=== PATIENT | male | born 1935 | race Two or more races ===

== ENCOUNTER 2018-05-08 11:19 | Inpatient (IN) | payer OTHER ==
--- NOTE | 2018-05-08 11:39 | PDOC ---
History of Present Illness - General Chief Complaint: Cold Symptoms Stated Complaint: FEVER Time Seen by Provider: 05/08/18 11:38 History Source: Patient (History provided by patient and mostly by his son present here, ) - History of Present Illness Timing/Duration: unsure Severity: moderate, severe Modifying Factors: improves with: rest Associated Symptoms: reports: cough, fever/chills, loss of appetite, malaise Past History - Travel Traveled outside of the country in the last 30 days: No Close contact w/someone who was outside of country & ill: No - Past Medical History Allergies/Adverse Reactions: Allergies Allergy/AdvReac Type Severity Reaction Status Date / Time No Known Allergies Allergy Verified 05/08/18 11:19 Home Medications: Ambulatory Orders Albuterol Sulfate Inhaler - [Ventolin Hfa Inhaler -] 1 inh PO Q6H 05/08/18 Albuterol Sulfate [Proair Respiclick] 90 mcg IH PRN PRN 05/08/18 Aspirin [ASA -] 81 mg PO DAILY 05/08/18 Brimonidine Tartrate [Alphagan 0.15% -] 1 drop OD TID 05/08/18 Dorzolamide HCl/Pf [Dorzolamide 2% Eye Drop] 10 ml OP TID 05/08/18 Mirabegron [Myrbetriq] 50 mg PO DAILY 05/08/18 Montelukast Na [Singulair -] 10 mg PO HS 05/08/18 Simvastatin [Zocor -] 20 mg PO HS 05/08/18 Anemia: No Asthma: Yes Cancer: Yes (prostate cancer, staging unknown) CVA: No COPD: Yes CHF: No Dementia: No Diabetes: No GI Disorders: No Disorders: Yes ([place] PROSTATE) HTN: Yes Hypercholesterolemia: Yes Liver Disease: No Seizures: No Thyroid Disease: No - Immunization History Td Vaccination: Yes TDAP Vaccination: Yes Immunization Up to Date: Yes - Suicide/Smoking/Psychosocial Hx Smoking Status: No Smoking History: Former smoker Have you smoked in the past 12 months: No Number of Cigarettes Smoked Daily: 0 If you are a former smoker, when did you quit?: 30 years ago Hx Alcohol Use: No Drug/Substance Use Hx: No Substance Use Type: None Hx Substance Use Treatment: No Review of Systems - Review of Systems Able to Perform ROS?: Yes Is the patient limited [place] proficient: Yes Constitutional: Yes: Symptoms Reported, Fever, Loss of Appetite, Malaise, Weakness *Physical Exam - Physical Exam General Appearance: Yes: Thin HEENT: positive: GEOVANNI (Bilateral catarcts), Nasal Congestion Neck: positive: Supple Respiratory/Chest: positive: Crackles, Rales Cardiovascular: positive: Regular Rate, Tachycardia Gastrointestinal/Abdominal: positive: Normal Bowel Sounds, Flat Extremity: positive: Normal Capillary Refill, Other (Muscular atrophy) Integumentary: positive: Pale Neurologic: positive: Alert ED Treatment Course - LABORATORY CBC & Chemistry Diagram: 05/10/18 07:40 05/10/18 07:40 - RADIOLOGY Radiology Studies Ordered: Category Date Time Status CHEST X-RAY PORTABLE* [RAD] Stat Radiology 05/08/18 11:25 Ordered *DC/Admit/Observation/Transfer Diagnosis at time of Disposition: COPD exacerbation, Difficulty breathing, Bronchitis - Discharge Dispostion Disposition: VNS/HOME HEALTH CARE Condition at time of disposition: Improved Decision to Admit order: Yes - Referrals - Patient Instructions - Post Discharge Activity
[2018-05-08] MEDS ORDERED: ACETAMINOPHEN 1000 MG/100 ML VIAL (NON FORMULARY) IVPB ONE (11:51)
[2018-05-08] MEDS ORDERED: ALBUTEROL SO4 2.5/IPRATROPIUM 0.5 INH SOL 3 ML VIAL.NEB. NEB ONE ×4 (11:51→13:16)
[2018-05-08] MEDS ORDERED: ACETAMINOPHEN INJECTION 100 ML IVPB ONE (11:52)
[2018-05-08 12:03] LABS: BASO % 0.3 % (0-2.0); EOS % 1.1 % (0-4.5); HEMATOCRIT 37.4 % (35.4-49); HEMOGLOBIN 12.1 GM/dl (11.7-16.9); LYMPH % 13.8 % (8-40); MCH 25.1 pg (25.7-33.7); MCHC 32.3 g/dl (32.0-35.9); MEAN PLT VOLUME 8.2 fl (7.5-11.1); MONO % 10.5 % (3.8-10.2); NEUT % 74.3 % (42.8-82.8); PLATELET COUNT 343 K/MM3 (134-434); RDW 15.3 % (11.9-15.9); WHITE BLOOD COUNT 12.1 K/mm3 (4.0-10.8)
[2018-05-08 12:16] LABS: ALBUMIN 3.6 g/dl (3.5-5.0); ALK PHOS 56 U/L (32-92); ANION GAP 6 MMOL/L (8-16); BILIRUBIN,TOTAL 0.8 mg/dl (0.2-1.0); BLOOD UREA NITROGEN 15 mg/dl (7-18); CHLORIDE 101 mmol/L (98-107); CO2 27 mmol/L (22-28); CREATININE 1.1 mg/dl (0.6-1.3); GLUCOSE,RANDOM 89 mg/dl (74-106); POTASSIUM 4.3 mmol/L (3.5-5.1); SGOT/AST 15 U/L (10-42); SGPT/ALT 11 U/L (10-40); SODIUM 134 mmol/L (136-145); TOT PROT 7.1 g/dl (6.4-8.3)
[2018-05-08] MEDS ORDERED: CEFTRIAXONE 1,000 MG in DEXTROSE 5%-WATER - 50 ML IVPB ONE (12:21)
[2018-05-08] MEDS ORDERED: AZITHROMYCIN IVPB 500 MG in DEXTROSE 5%-WATER - 250 ML IVPB ONE (12:22)
[2018-05-08] MEDS ORDERED: cefTRIAXone SODIUM 1 GM VIAL ONE (12:47)
[2018-05-08] MEDS ORDERED: AZITHROMYCIN 500 MG VIAL IVPB ONE (12:47)
[2018-05-08] MEDS ORDERED: ALBUTEROL SO4 0.083% IH SOL 2.5 MG/3 ML VIAL.NEB. NEB ONE ×2 (13:14→13:48)
[2018-05-08] MEDS ORDERED: methylPREDNISolone NA SUCC 125 MG/2 ML VIAL IVPB ONE (13:15)
[2018-05-08] MEDS ORDERED: methylPREDNISolone NA SUCC 125 MG/2 ML VIAL ONE (13:16)
[2018-05-08 14:15] LABS: URINE APPEARANCE Clear; URINE BILIRUBIN Negative (NEGATIVE); URINE COLOR Yellow; URINE GLUCOSE (UA) Negative (NEGATIVE); URINE KETONE Negative (NEGATIVE); URINE LEUK ESTERASE Negative (NEGATIVE); URINE NITRITE Negative (NEGATIVE); URINE PROTEIN Negative (NEGATIVE); URINE UROBILINOGEN 0.2 (0.2-1.0)
[2018-05-08 14:25] LABS: URINE RBC 0-2 /hpf (0-3)
[2018-05-08 16:48] VITALS: BMI 22.3
[2018-05-08] MEDS ORDERED: ALBUTEROL SO4 8 GM HFA INHALER IH PRN (18:43)
--- NOTE | 2018-05-08 18:44 | CON.ID ---
Consult Consult Specialty:: infectious diseases Reason for Consultation:: copd/r/o pna - History of Present Illness Chief Complaint: sob History of Present Illness: 83 y/o male coming to the hospital because of sob PMH of Prastatectomy 1994for carcinoma prostate, COPD,osteoporosis,Constipation,CAD,non st elevation [place], RIH repair came to ER with Cough,SOB,Wheezing was not improving with regular Rx Pt being admitted for COPD excerbation. 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: Other (Pt having unstedy gait,Flat feet) Cardio/Vascular: Yes: CAD (ekg criteria), HTN (H/O HTN), Hyperlipdemia (H/O hyperlipidemia) Pulmonary: Yes: Asthma (H/O of Asthma), COPD, Pneumonia (H/O of pneumonia) Gastrointestinal: Yes: Other (H/o of gastritis) Renal/: Yes: Other (H/O of CA prostate S/P prostatectomy) Musculoskeletal: Yes: Chronic low back pain (H/O of back pain), Osteoarthritis ( H/o of OA) Rheumatology: Yes: Other (H/O of OA) Endocrine: Yes: Other (H/O of osteo porosis) - Past Surgical History Past Surgical History: Yes: Prostatectomy (H/O of prostatectomy) - Alcohol/Substance Use Hx Alcohol Use: No - Smoking History Smoking history: Former smoker Have you smoked in the past 12 months: No Aproximately how many cigarettes per day: 0 If you are a former smoker, when did you quit?: 30 years ago - Social History ADL: Independent History of Recent Travel: Yes (Amanda) Home Medications - Allergies Allergies/Adverse Reactions: Allergies Allergy/AdvReac Type Severity Reaction Status Date / Time No Known Allergies Allergy Verified 05/08/18 11:19 - Home Medications Home Medications: Ambulatory Orders Albuterol Sulfate Inhaler - [Ventolin Hfa Inhaler -] 1 inh PO Q6H 05/08/18 Albuterol Sulfate [Proair Respiclick] 90 mcg IH PRN PRN 05/08/18 Aspirin [ASA -] 81 mg PO DAILY 05/08/18 Brimonidine Tartrate [Alphagan 0.15% -] 1 drop OD TID 05/08/18 Dorzolamide HCl/Pf [Dorzolamide 2% Eye Drop] 10 ml OP TID 05/08/18 Mirabegron [Myrbetriq] 50 mg PO DAILY 05/08/18 Montelukast Na [Singulair -] 10 mg PO HS 05/08/18 Simvastatin [Zocor -] 20 mg PO HS 05/08/18 Review of Systems - Review of Systems Constitutional: reports: No Symptoms Eyes: reports: No Symptoms HENT: reports: No Symptoms Neck: reports: No Symptoms Cardiovascular: reports: No Symptoms Respiratory: reports: SOB, SOB on Exertion Gastrointestinal: reports: No Symptoms Genitourinary: reports: No Symptoms Breasts: reports: No Symptoms Reported Musculoskeletal: reports: No Symptoms Integumentary: reports: No Symptoms Neurological: reports: No Symptoms Endocrine: reports: No Symptoms Hematology/Lymphatic: reports: No Symptoms Psychiatric: reports: No Symptoms Physical Exam Vital Signs: Vital Signs Temperature 98.2 F 05/08/18 16:37 Pulse Rate 87 05/08/18 16:37 Respiratory Rate 20 05/08/18 16:37 Blood Pressure 108/67 05/08/18 16:37 O2 Sat by Pulse Oximetry (%) 97 05/08/18 16:37 Constitutional: Yes: Calm, Mild Distress, Thin Eyes: Yes: Conjunctiva Clear Neck: Yes: Supple, Trachea Midline Cardiovascular: Yes: S1, S2 Respiratory: Yes: On Nasal O2, Poor Air Entry, Rhonchi Gastrointestinal: Yes: Normal Bowel Sounds, Soft Musculoskeletal: Yes: WNL Extremities: Yes: WNL Neurological: Yes: Alert, Oriented Psychiatric: Yes: Alert, Oriented Labs: CBC, BMP 05/08/18 11:44 05/08/18 11:44 Assessment/Plan Problem List - Problems (1) Acute exacerbation of chronic obstructive pulmonary disease (COPD) Code(s): J44.1 - CHRONIC OBSTRUCTIVE PULMONARY DISEASE W (ACUTE) EXACERBATION (2) Prostate ca Code(s): C61 - MALIGNANT NEOPLASM OF PROSTATE 3 leukocytosis plan continue current mgmt neb treatment will start patient on ceftriaxone await for all cx reports rest as per the team resp support
[2018-05-08] MEDS: ALBUTEROL SO4 2.5/IPRATROPIUM 0.5 INH SOL 3 ML VIAL.NEB. NEB SCH ×2 (21:00→23:14)
--- NOTE | 2018-05-08 21:51 | HP ---
Admitting History and Physical - Primary Care Physician PCP: Dr viri Winslow - Admission History of Present Illness: 83 Y old male with PMH of Prastatectomy 1994for carcinoma prostate, COPD, osteoporosis,Constipation,CAD,No ST elevation [place],RIH repair came to ER with Cough,SOB,Wheezing was not improving with regular Rx Pt being admitted for COPD excerbation. 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: Other (Pt having unstedy gait,Flat feet) Cardiovascular: Yes: CAD (ekg criteria), HTN (H/O HTN), Hyperlipdemia (H/O hyperlipidemia), [place] Pulmonary: Yes: Asthma (H/O of Asthma), COPD, Pneumonia (H/O of pneumonia) Gastrointestinal: Yes: Constipation, Other (H/o of gastritis) Renal/: Yes: Other (H/O of CA prostate S/P prostatectomy) Psych: Yes: Anxiety Musculoskeletal: Yes: Chronic low back pain (H/O of back pain), Osteoarthritis ( H/o of OA) Rheumatology: Yes: Other (H/O of OA) Endocrine: Yes: Other (H/O of osteo porosis) - Past Surgical History Past Surgical History: Yes: Prostatectomy (H/O of prostatectomy) - Smoking History Smoking history: Former smoker Have you smoked in the past 12 months: No Aproximately how many cigarettes per day: 0 If you are a former smoker, when did you quit?: 30 years ago - Alcohol/Substance Use Hx Alcohol Use: No - Social History ADL: Independent History of Recent Travel: Yes (Amanda) Home Medications - Allergies Allergies/Adverse Reactions: Allergies Allergy/AdvReac Type Severity Reaction Status Date / Time No Known Allergies Allergy Verified 05/08/18 11:19 - Home Medications Home Medications: Ambulatory Orders Albuterol Sulfate Inhaler - [Ventolin Hfa Inhaler -] 1 inh PO Q6H 05/08/18 Albuterol Sulfate [Proair Respiclick] 90 mcg IH PRN PRN 05/08/18 Aspirin [ASA -] 81 mg PO DAILY 05/08/18 Brimonidine Tartrate [Alphagan 0.15% -] 1 drop OD TID 05/08/18 Dorzolamide HCl/Pf [Dorzolamide 2% Eye Drop] 10 ml OP TID 05/08/18 Mirabegron [Myrbetriq] 50 mg PO DAILY 05/08/18 Montelukast Na [Singulair -] 10 mg PO HS 05/08/18 Simvastatin [Zocor -] 20 mg PO HS 05/08/18 Physical Examination Vital Signs: Vital Signs Temperature 98.2 F 05/08/18 16:37 Pulse Rate 87 05/08/18 16:37 Respiratory Rate 20 05/08/18 16:37 Blood Pressure 108/67 05/08/18 16:37 O2 Sat by Pulse Oximetry (%) 97 05/08/18 16:37 Labs: CBC, BMP 05/08/18 11:44 05/08/18 11:44 Problem List - Problems (1) Acute exacerbation of chronic obstructive pulmonary disease (COPD) Code(s): J44.1 - CHRONIC OBSTRUCTIVE PULMONARY DISEASE W (ACUTE) EXACERBATION (2) Bronchitis Code(s): J40 - BRONCHITIS, NOT SPECIFIED ACUTE OR CHRONIC (3) Gait difficulty Code(s): R26.9 - UNSPECIFIED ABNORMALITIES OF GAIT AND MOBILITY (4) Myocardial infarct Code(s): I21.9 - ACUTE MYOCARDIAL INFARCTION, UNSPECIFIED Qualifiers: Myocardial infarction type: non-ST elevation myocardial infarction Qualified Code(s): I21.4 - Non-ST elevation (NSTEMI) myocardial infarction (5) CAD (coronary artery disease) Code(s): I25.10 - ATHSCL HEART DISEASE OF [place] CORONARY ARTERY W/O ANG PCTRS Qualifiers: Coronary Disease-Associated Artery/Lesion type: [place] artery (6) Anemia Code(s): D64.9 - ANEMIA, UNSPECIFIED (7) Prostate ca Code(s): C61 - MALIGNANT NEOPLASM OF PROSTATE (8) Sepsis Code(s): A41.9 - SEPSIS, UNSPECIFIED ORGANISM (9) Hyponatremia Code(s): E87.1 - HYPO-OSMOLALITY AND HYPONATREMIA Assessment/Plan (1) Acute exacerbation of chronic obstructive pulmonary disease (COPD) Code(s): J44.1 - CHRONIC OBSTRUCTIVE PULMONARY DISEASE W (ACUTE) EXACERBATION (2) Bronchitis Code(s): J40 - BRONCHITIS, NOT SPECIFIED ACUTE OR CHRONIC (3) Gait difficulty Code(s): R26.9 - UNSPECIFIED ABNORMALITIES OF GAIT AND MOBILITY (4) Myocardial infarct Code(s): I21.9 - ACUTE MYOCARDIAL INFARCTION, UNSPECIFIED Qualifiers: Myocardial infarction type: non-ST elevation myocardial infarction Qualified Code(s): I21.4 - Non-ST elevation (NSTEMI) myocardial infarction (5) CAD (coronary artery disease) Code(s): I25.10 - ATHSCL HEART DISEASE OF [place] CORONARY ARTERY W/O ANG PCTRS Qualifiers: Coronary Disease-Associated Artery/Lesion type: [place] artery
[2018-05-08] MEDS ORDERED: FUROSEMIDE 20 MG TABLET (FP) PO ONE (22:18)
[2018-05-08] MEDS: POTASSIUM CHLORIDE 10 MEQ in SODIUM CHLORIDE 0.45% 1,000 ML IVPB SCH (23:14)
[2018-05-09] MEDS: methylPREDNISolone NA SUCC 40 MG/1 ML VIAL IVPUSH SCH ×4 (02:00→19:00)
[2018-05-09] MEDS: ALBUTEROL SO4 2.5/IPRATROPIUM 0.5 INH SOL 3 ML VIAL.NEB. NEB SCH ×6 (02:21→23:53)
[2018-05-09 08:22] LABS: HEMATOCRIT 36.8 % (35.4-49); MCH 25.3 pg (25.7-33.7); MCHC 32.5 g/dl (32.0-35.9); MEAN CELL VOLUME 77.7 fl (80-96); MEAN PLT VOLUME 9.1 fl (7.5-11.1); PLATELET COUNT 321 K/MM3 (134-434); RBC 4.74 M/mm3 (4.00-5.60); RDW 15.3 % (11.9-15.9); WHITE BLOOD COUNT 14.5 K/mm3 (4.0-10.8)
[2018-05-09 08:30] LABS: ANION GAP 8 MMOL/L (8-16); BLOOD UREA NITROGEN 19 mg/dl (7-18); CALCIUM 8.9 mg/dl (8.4-10.2); CHLORIDE 105 mmol/L (98-107); CO2 23 mmol/L (22-28); GLUCOSE,RANDOM 166 mg/dl (74-106); POTASSIUM 3.7 mmol/L (3.5-5.1); SODIUM 136 mmol/L (136-145)
[2018-05-09 08:52] LABS: PLATELET ESTIMATE ADEQUATE
--- NOTE | 2018-05-09 09:54 | PN ---
Progress Note, Physician History of Present Illness: stable doing well breathing better - Current Medication List Current Medications: Active Medications Albuterol Sulfate (Ventolin Hfa Inhaler -) 2 puff IH Q4H PRN PRN Reason: SHORT OF BREATH/WHEEZING Albuterol/Ipratropium (Duoneb -) 1 amp NEB Q4H [facility] Last Admin: 05/09/18 08:24 Dose: 1 amp Aspirin (Ecotrin -) 81 mg PO DAILY [facility] Azithromycin (Zithromax 500mg Ivpb (Pre-Docked)) 500 mg in 250 mls @ 250 mls/ hr IVPB DAILY [facility] Potassium Chloride 10 meq/ (Sodium Chloride) 1,005 mls @ 75 mls/hr IVPB Q13H [facility] Last Admin: 05/08/18 23:14 Dose: 75 mls/hr Ceftriaxone Sodium (Rocephin 1gm Ivpb (Pre-Docked)) 1 gm in 50 mls @ 100 mls/ hr IVPB DAILY [facility]; Protocol Methylprednisolone Sodium Succinate (Solu-Medrol -) 40 mg IVPUSH Q8H-IV [facility] Last Admin: 05/09/18 02:00 Dose: 40 mg Montelukast Sodium (Singulair -) 10 mg PO HS [facility] Pantoprazole Sodium (Protonix Iv) 40 mg IVPUSH DAILY [facility] - Objective Vital Signs: Vital Signs Temperature 97.8 F 05/09/18 06:34 Pulse Rate 107 H 05/09/18 06:34 Respiratory Rate 18 05/09/18 08:37 Blood Pressure 114/54 L 05/09/18 06:34 O2 Sat by Pulse Oximetry (%) 96 05/09/18 08:37 Constitutional: Yes: No Distress, Calm Cardiovascular: Yes: Regular Rate and Rhythm Respiratory: Yes: Regular, On Nasal O2, Poor Air Entry Gastrointestinal: Yes: Normal Bowel Sounds, Soft Musculoskeletal: Yes: WNL Extremities: Yes: WNL Neurological: Yes: Alert, Oriented Psychiatric: Yes: Alert, Oriented Labs: CBC, BMP 05/09/18 08:00 05/09/18 08:00 - ....Imaging Chest X-ray: Report Reviewed, Image Reviewed Assessment/Plan Problem List - Problems (1) Acute exacerbation of chronic obstructive pulmonary disease (COPD) Code(s): J44.1 - CHRONIC OBSTRUCTIVE PULMONARY DISEASE W (ACUTE) EXACERBATION (2) Prostate ca Code(s): C61 - MALIGNANT NEOPLASM OF PROSTATE 3 leukocytosis plan continue current mgmt neb treatment ceftriaxone await for all cx reports rest as per the team resp support physio
[2018-05-09] MEDS ORDERED: CEFTRIAXONE 1 GM in DEXTROSE 5%-WATER - 100 ML IVPB SCH (10:00)
[2018-05-09] MEDS: PANTOPRAZOLE SODIUM 40 MG VIAL IVPUSH SCH ×2 (10:09→19:00)
[2018-05-09] MEDS: CEFTRIAXONE 1 GM/50 ML BAG IVPB SCH (10:09)
[2018-05-09] MEDS: ASPIRIN COATED 81 MG TABLET.EC PO SCH (10:10)
[2018-05-09] MEDS: AZITHROMYCIN IVPB 500 MG/250 ML BAG IVPB SCH (10:10)
--- NOTE | 2018-05-09 10:23 | EKG ---
Test Reason : Blood Pressure : / mmHG Vent. Rate : 103 BPM Atrial Rate : 103 BPM P-R Int : 154 ms QRS Dur : 074 ms QT Int : 310 ms P-R-T Axes : 075 030 081 degrees QTc Int : 406 ms SINUS TACHYCARDIA LOW VOLTAGE QRS NONSPECIFIC T WAVE ABNORMALITY ABNORMAL ECG Confirmed by ANISH PUTNAM MD ([id number]) on 05/09/2018 10:22:34 AM Referred By: TIARA THOMPSON Confirmed By:ANISH PUTNAM MD
[2018-05-09] MEDS: POTASSIUM CHLORIDE 10 MEQ in SODIUM CHLORIDE 0.45% 1,000 ML IVPB SCH (12:23)
--- NOTE | 2018-05-09 20:36 | PN ---
Progress Note, Physician History of Present Illness: Pt SOB better Fever subsided No Chest pain Decreased wheezing - Current Medication List Current Medications: Active Medications Albuterol Sulfate (Ventolin Hfa Inhaler -) 2 puff IH Q4H PRN PRN Reason: SHORT OF BREATH/WHEEZING Albuterol/Ipratropium (Duoneb -) 1 amp NEB Q4H [facility] Last Admin: 05/09/18 16:00 Dose: 1 amp Aspirin (Ecotrin -) 81 mg PO DAILY [facility] Last Admin: 05/09/18 10:10 Dose: 81 mg Azithromycin (Zithromax 500mg Ivpb (Pre-Docked)) 500 mg in 250 mls @ 250 mls/ hr IVPB DAILY [facility] Last Admin: 05/09/18 10:10 Dose: 250 mls/hr Potassium Chloride 10 meq/ (Sodium Chloride) 1,005 mls @ 75 mls/hr IVPB Q13H [facility] Last Admin: 05/09/18 12:23 Dose: 75 mls/hr Ceftriaxone Sodium (Rocephin 1gm Ivpb (Pre-Docked)) 1 gm in 50 mls @ 100 mls/ hr IVPB DAILY [facility]; Protocol Last Admin: 05/09/18 10:09 Dose: 100 mls/hr Methylprednisolone Sodium Succinate (Solu-Medrol -) 40 mg IVPUSH Q8H-IV [facility] Last Admin: 05/09/18 19:00 Dose: Not Given Montelukast Sodium (Singulair -) 10 mg PO HS [facility] Pantoprazole Sodium (Protonix Iv) 40 mg IVPUSH DAILY [facility] Last Admin: 05/09/18 19:00 Dose: Not Given - Objective Vital Signs: Vital Signs Temperature 97.5 F L 05/09/18 18:00 Pulse Rate 103 H 05/09/18 18:00 Respiratory Rate 19 18 19:23 Blood Pressure 105/47 L 05/09/18 18:00 O2 Sat by Pulse Oximetry (%) 97 05/09/18 19:23 Constitutional: Yes: No Distress Eyes: Yes: Conjunctiva Clear, EOM Intact HENT: Yes: Atraumatic, Normocephalic Neck: Yes: Supple, Trachea Midline Cardiovascular: Yes: Regular Rate and Rhythm, S1, S2 Respiratory: Yes: Regular, CTA Bilaterally Gastrointestinal: Yes: Normal Bowel Sounds, Soft Edema: No Neurological: Yes: Alert, Oriented, Cran Nerves II-XII Intact Labs: CBC, BMP 05/09/18 08:00 05/09/18 08:00 Problem List - Problems (1) Acute exacerbation of chronic obstructive pulmonary disease (COPD) Code(s): J44.1 - CHRONIC OBSTRUCTIVE PULMONARY DISEASE W (ACUTE) EXACERBATION (2) Bronchitis Code(s): J40 - BRONCHITIS, NOT SPECIFIED ACUTE OR CHRONIC (3) Gait difficulty Code(s): R26.9 - UNSPECIFIED ABNORMALITIES OF GAIT AND MOBILITY (4) Myocardial infarct Code(s): I21.9 - ACUTE MYOCARDIAL INFARCTION, UNSPECIFIED Qualifiers: Myocardial infarction type: non-ST elevation myocardial infarction Qualified Code(s): I21.4 - Non-ST elevation (NSTEMI) myocardial infarction (5) CAD (coronary artery disease) Code(s): I25.10 - ATHSCL HEART DISEASE OF [place] CORONARY ARTERY W/O ANG PCTRS Qualifiers: Coronary Disease-Associated Artery/Lesion type: [place] artery (6) Anemia Code(s): D64.9 - ANEMIA, UNSPECIFIED (7) Prostate ca Code(s): C61 - MALIGNANT NEOPLASM OF PROSTATE (8) Sepsis Code(s): A41.9 - SEPSIS, UNSPECIFIED ORGANISM (9) Hyponatremia Code(s): E87.1 - HYPO-OSMOLALITY AND HYPONATREMIA Assessment/Plan (1) Acute exacerbation of chronic obstructive pulmonary disease (COPD) Code(s): J44.1 - CHRONIC OBSTRUCTIVE PULMONARY DISEASE W (ACUTE) EXACERBATION (2) Bronchitis Code(s): J40 - BRONCHITIS, NOT SPECIFIED ACUTE OR CHRONIC (3) Gait difficulty Code(s): R26.9 - UNSPECIFIED ABNORMALITIES OF GAIT AND MOBILITY (4) Myocardial infarct Code(s): I21.9 - ACUTE MYOCARDIAL INFARCTION, UNSPECIFIED Qualifiers: Myocardial infarction type: non-ST elevation myocardial infarction Qualified Code(s): I21.4 - Non-ST elevation (NSTEMI) myocardial infarction (5) CAD (coronary artery disease) Code(s): I25.10 - ATHSCL HEART DISEASE OF [place] CORONARY ARTERY W/O ANG PCTRS Qualifiers: Coronary Disease-Associated Artery/Lesion type: [place] artery Pt is much better Less wheezing No fever PT we will Fu closely
[2018-05-09] MEDS: MONTELUKAST NA 10 MG TABLET PO SCH (21:11)
[2018-05-10] MEDS: POTASSIUM CHLORIDE 10 MEQ in SODIUM CHLORIDE 0.45% 1,000 ML IVPB SCH (00:30)
[2018-05-10] MEDS: methylPREDNISolone NA SUCC 40 MG/1 ML VIAL IVPUSH SCH ×3 (01:17→17:30)
[2018-05-10] MEDS: ALBUTEROL SO4 2.5/IPRATROPIUM 0.5 INH SOL 3 ML VIAL.NEB. NEB SCH ×5 (05:28→20:17)
[2018-05-10] MEDS: DEXTROMETHORPHAN/PROMETHAZINE 15 MG/6.25 MG/5 ML SYRUP PO PRN ×2 (05:28→20:18)
[2018-05-10] MEDS: CEFTRIAXONE 1 GM/50 ML BAG IVPB SCH (09:00)
[2018-05-10 09:12] LABS: ANION GAP 6 MMOL/L (8-16); BLOOD UREA NITROGEN 26 mg/dl (7-18); CALCIUM 8.4 mg/dl (8.4-10.2); CHLORIDE 107 mmol/L (98-107); CO2 24 mmol/L (22-28); CREATININE 0.9 mg/dl (0.6-1.3); GLUCOSE,RANDOM 152 mg/dl (74-106); POTASSIUM 4.2 mmol/L (3.5-5.1); SODIUM 137 mmol/L (136-145)
[2018-05-10 09:18] LABS: BASO % 0.1 % (0-2.0); EOS % 0.1 % (0-4.5); HEMOGLOBIN 11.2 GM/dl (11.7-16.9); LYMPH % 6.5 % (8-40); MCH 25.6 pg (25.7-33.7); MCHC 32.8 g/dl (32.0-35.9); MEAN CELL VOLUME 77.8 fl (80-96); MONO % 2.4 % (3.8-10.2); NEUT % 90.9 % (42.8-82.8); PLATELET COUNT 311 K/MM3 (134-434); RBC 4.37 M/mm3 (4.00-5.60); RDW 15.5 % (11.9-15.9); WHITE BLOOD COUNT 16.4 K/mm3 (4.0-10.8)
[2018-05-10] MEDS: AZITHROMYCIN IVPB 500 MG/250 ML BAG IVPB SCH (09:42)
[2018-05-10] MEDS: PANTOPRAZOLE SODIUM 40 MG VIAL IVPUSH SCH (09:55)
[2018-05-10] MEDS: ASPIRIN COATED 81 MG TABLET.EC PO SCH (10:18)
--- NOTE | 2018-05-10 11:39 | PN ---
Progress Note, Physician History of Present Illness: Pt states he feels better. Afebrile, without distress. No new complaints. - Current Medication List Current Medications: Active Medications Albuterol Sulfate (Ventolin Hfa Inhaler -) 2 puff IH Q4H PRN PRN Reason: SHORT OF BREATH/WHEEZING Albuterol/Ipratropium (Duoneb -) 1 amp NEB Q4H [facility] Last Admin: 05/10/18 05:28 Dose: 1 amp Aspirin (Ecotrin -) 81 mg PO DAILY [facility] Last Admin: 05/09/18 10:10 Dose: 81 mg Benzocaine/Menthol (Cepacol Lozenge -) 1 each MM PRN PRN PRN Reason: SORE THROAT Azithromycin (Zithromax 500mg Ivpb (Pre-Docked)) 500 mg in 250 mls @ 250 mls/ hr IVPB DAILY [facility] Last Admin: 05/09/18 10:10 Dose: 250 mls/hr Potassium Chloride 10 meq/ (Sodium Chloride) 1,005 mls @ 75 mls/hr IVPB Q13H [facility] Last Admin: 05/10/18 00:30 Dose: 75 mls/hr Ceftriaxone Sodium (Rocephin 1gm Ivpb (Pre-Docked)) 1 gm in 50 mls @ 100 mls/ hr IVPB DAILY [facility]; Protocol Last Admin: 05/09/18 10:09 Dose: 100 mls/hr Methylprednisolone Sodium Succinate (Solu-Medrol -) 40 mg IVPUSH Q8H-IV [facility] Last Admin: 05/10/18 01:17 Dose: 40 mg Montelukast Sodium (Singulair -) 10 mg PO HS [facility] Last Admin: 05/09/18 21:11 Dose: 10 mg Pantoprazole Sodium (Protonix Iv) 40 mg IVPUSH DAILY [facility] Last Admin: 05/09/18 19:00 Dose: Not Given Promethazine HCl/Dextromethorphan (Phenergan-Dm Syrup -) 5 ml PO Q6H PRN PRN Reason: COUGH Stop: 05/13/18 06:00 Last Admin: 05/10/18 05:28 Dose: 5 ml - Objective Vital Signs: Vital Signs Temperature 97.8 F 05/10/18 10:24 Pulse Rate 79 05/10/18 10:24 Respiratory Rate 19 05/10/18 10:24 Blood Pressure 110/47 L 05/10/18 10:24 O2 Sat by Pulse Oximetry (%) 95 05/10/18 10:24 Constitutional: Yes: No Distress, Calm Cardiovascular: Yes: Regular Rate and Rhythm Respiratory: Yes: Diminished Gastrointestinal: Yes: Normal Bowel Sounds, Soft Integumentary: Yes: WNL Neurological: Yes: Alert Labs: CBC, BMP 05/10/18 07:40 05/10/18 07:40 Microbiology 05/08/18 14:06 Urine - Urine Clean Catch Urine Culture - Final Contaminated: Please Repeat 05/08/18 11:49 Blood - Peripheral Venous Blood Culture - Preliminary NO GROWTH OBTAINED AFTER 24 HOURS, INCUBATION TO CONTINUE FOR 4 DAYS. 05/08/18 11:28 Blood - Peripheral Venous Blood Culture - Preliminary NO GROWTH OBTAINED AFTER 24 HOURS, INCUBATION TO CONTINUE FOR 4 DAYS. 05/08/18 13:52 Nasopharyngeal Swab Influenza Types A,B Antigen - Final 05/08/18 13:52 Nasopharyngeal Swab - Final Problem List - Problems (1) COPD exacerbation Code(s): J44.1 - CHRONIC OBSTRUCTIVE PULMONARY DISEASE W (ACUTE) EXACERBATION (2) CAD (coronary artery disease) Code(s): I25.10 - ATHSCL HEART DISEASE OF [place] CORONARY ARTERY W/O ANG PCTRS Qualifiers: Coronary Disease-Associated Artery/Lesion type: [place] artery (3) Prostate ca Code(s): C61 - MALIGNANT NEOPLASM OF PROSTATE Assessment/Plan wbc elevation - on steroids -- no respiratory distress -- blood cultures no growth 24h -- cont. current antibiotics -- breathing comfortably at this time, afebrile
--- NOTE | 2018-05-10 14:10 | PN ---
Progress Note, Physician History of Present Illness: Pt is doing well No fever No SOB - Current Medication List Current Medications: Active Medications Albuterol Sulfate (Ventolin Hfa Inhaler -) 2 puff IH Q4H PRN PRN Reason: SHORT OF BREATH/WHEEZING Albuterol/Ipratropium (Duoneb -) 1 amp NEB Q4H [facility] Last Admin: 05/10/18 05:28 Dose: 1 amp Aspirin (Ecotrin -) 81 mg PO DAILY [facility] Last Admin: 05/09/18 10:10 Dose: 81 mg Benzocaine/Menthol (Cepacol Lozenge -) 1 each MM PRN PRN PRN Reason: SORE THROAT Azithromycin (Zithromax 500mg Ivpb (Pre-Docked)) 500 mg in 250 mls @ 250 mls/ hr IVPB DAILY [facility] Last Admin: 05/09/18 10:10 Dose: 250 mls/hr Potassium Chloride 10 meq/ (Sodium Chloride) 1,005 mls @ 75 mls/hr IVPB Q13H [facility] Last Admin: 05/10/18 00:30 Dose: 75 mls/hr Ceftriaxone Sodium (Rocephin 1gm Ivpb (Pre-Docked)) 1 gm in 50 mls @ 100 mls/ hr IVPB DAILY [facility]; Protocol Last Admin: 05/09/18 10:09 Dose: 100 mls/hr Methylprednisolone Sodium Succinate (Solu-Medrol -) 40 mg IVPUSH Q8H-IV [facility] Last Admin: 05/10/18 01:17 Dose: 40 mg Montelukast Sodium (Singulair -) 10 mg PO HS [facility] Last Admin: 05/09/18 21:11 Dose: 10 mg Pantoprazole Sodium (Protonix Iv) 40 mg IVPUSH DAILY [facility] Last Admin: 05/09/18 19:00 Dose: Not Given Promethazine HCl/Dextromethorphan (Phenergan-Dm Syrup -) 5 ml PO Q6H PRN PRN Reason: COUGH Stop: 05/13/18 06:00 Last Admin: 05/10/18 05:28 Dose: 5 ml - Objective Vital Signs: Vital Signs Temperature 97.8 F 05/10/18 10:24 Pulse Rate 79 05/10/18 10:24 Respiratory Rate 19 05/10/18 10:24 Blood Pressure 110/47 L 05/10/18 10:24 O2 Sat by Pulse Oximetry (%) 95 05/10/18 10:24 Constitutional: Yes: No Distress Eyes: Yes: Conjunctiva Clear, EOM Intact HENT: Yes: Atraumatic, Normocephalic Neck: Yes: Supple, Trachea Midline Cardiovascular: Yes: Regular Rate and Rhythm, S1, S2 Respiratory: Yes: Regular, CTA Bilaterally Gastrointestinal: Yes: Normal Bowel Sounds, Soft Edema: No Labs: CBC, BMP 05/10/18 07:40 05/10/18 07:40 Problem List - Problems (1) Acute exacerbation of chronic obstructive pulmonary disease (COPD) Code(s): J44.1 - CHRONIC OBSTRUCTIVE PULMONARY DISEASE W (ACUTE) EXACERBATION (2) Bronchitis Code(s): J40 - BRONCHITIS, NOT SPECIFIED ACUTE OR CHRONIC (3) Gait difficulty Code(s): R26.9 - UNSPECIFIED ABNORMALITIES OF GAIT AND MOBILITY (4) Myocardial infarct Code(s): I21.9 - ACUTE MYOCARDIAL INFARCTION, UNSPECIFIED Qualifiers: Myocardial infarction type: non-ST elevation myocardial infarction Qualified Code(s): I21.4 - Non-ST elevation (NSTEMI) myocardial infarction (5) CAD (coronary artery disease) Code(s): I25.10 - ATHSCL HEART DISEASE OF [place] CORONARY ARTERY W/O ANG PCTRS Qualifiers: Coronary Disease-Associated Artery/Lesion type: [place] artery (6) Anemia Code(s): D64.9 - ANEMIA, UNSPECIFIED (7) Prostate ca Code(s): C61 - MALIGNANT NEOPLASM OF PROSTATE (8) Sepsis Code(s): A41.9 - SEPSIS, UNSPECIFIED ORGANISM (9) Hyponatremia Code(s): E87.1 - HYPO-OSMOLALITY AND HYPONATREMIA Assessment/Plan (1) Acute exacerbation of chronic obstructive pulmonary disease (COPD) Code(s): J44.1 - CHRONIC OBSTRUCTIVE PULMONARY DISEASE W (ACUTE) EXACERBATION (2) Bronchitis Code(s): J40 - BRONCHITIS, NOT SPECIFIED ACUTE OR CHRONIC (3) Gait difficulty Code(s): R26.9 - UNSPECIFIED ABNORMALITIES OF GAIT AND MOBILITY (4) Myocardial infarct Code(s): I21.9 - ACUTE MYOCARDIAL INFARCTION, UNSPECIFIED Qualifiers: Myocardial infarction type: non-ST elevation myocardial infarction Qualified Code(s): I21.4 - Non-ST elevation (NSTEMI) myocardial infarction (5) CAD (coronary artery disease) Code(s): I25.10 - ATHSCL HEART DISEASE OF [place] CORONARY ARTERY W/O ANG PCTRS Qualifiers: Coronary Disease-Associated Artery/Lesion type: [place] artery Pt is hemodynamically stable No Fever NO SOB No chest pain
[2018-05-10] MEDS: MONTELUKAST NA 10 MG TABLET PO SCH (21:34)
[2018-05-11] MEDS: methylPREDNISolone NA SUCC 40 MG/1 ML VIAL IVPUSH SCH ×3 (01:03→13:10)
[2018-05-11] MEDS: ALBUTEROL SO4 2.5/IPRATROPIUM 0.5 INH SOL 3 ML VIAL.NEB. NEB SCH ×6 (01:03→20:10)
[2018-05-11] MEDS: CEFTRIAXONE 1 GM/50 ML BAG IVPB SCH (09:00)
[2018-05-11] MEDS: PANTOPRAZOLE SODIUM 40 MG VIAL IVPUSH SCH (09:35)
[2018-05-11] MEDS: AZITHROMYCIN IVPB 500 MG/250 ML BAG IVPB SCH (10:20)
[2018-05-11] MEDS: ASPIRIN COATED 81 MG TABLET.EC PO SCH (10:50)
--- NOTE | 2018-05-11 11:48 | PN ---
Progress Note, Physician History of Present Illness: Pt is alert. Denies shortness of breath, comfortably breathing on room air. Remains afebrile. Denies having any specific complaints. - Current Medication List Current Medications: Active Medications Albuterol Sulfate (Ventolin Hfa Inhaler -) 2 puff IH Q4H PRN PRN Reason: SHORT OF BREATH/WHEEZING Albuterol/Ipratropium (Duoneb -) 1 amp NEB Q4H [facility] Last Admin: 05/11/18 07:51 Dose: 1 amp Aspirin (Ecotrin -) 81 mg PO DAILY [facility] Last Admin: 05/11/18 10:50 Dose: 81 mg Benzocaine/Menthol (Cepacol Lozenge -) 1 each MM PRN PRN PRN Reason: SORE THROAT Azithromycin (Zithromax 500mg Ivpb (Pre-Docked)) 500 mg in 250 mls @ 250 mls/ hr IVPB DAILY [facility] Last Admin: 05/11/18 10:20 Dose: 250 mls/hr Ceftriaxone Sodium (Rocephin 1gm Ivpb (Pre-Docked)) 1 gm in 50 mls @ 100 mls/ hr IVPB DAILY [facility]; Protocol Last Admin: 05/11/18 09:00 Dose: 100 mls/hr Methylprednisolone Sodium Succinate (Solu-Medrol -) 40 mg IVPUSH Q8H-IV [facility] Last Admin: 05/11/18 09:55 Dose: 40 mg Montelukast Sodium (Singulair -) 10 mg PO HS [facility] Last Admin: 05/10/18 21:34 Dose: 10 mg Pantoprazole Sodium (Protonix Iv) 40 mg IVPUSH DAILY [facility] Last Admin: 05/11/18 09:35 Dose: 40 mg Promethazine HCl/Dextromethorphan (Phenergan-Dm Syrup -) 5 ml PO Q6H PRN PRN Reason: COUGH Stop: 05/13/18 06:00 Last Admin: 05/10/18 20:18 Dose: 5 ml - Objective Vital Signs: Vital Signs Temperature 97.8 F 05/11/18 06:00 Pulse Rate 83 05/11/18 06:00 Respiratory Rate 20 05/11/18 09:00 Blood Pressure 122/61 05/11/18 06:00 O2 Sat by Pulse Oximetry (%) 95 05/11/18 09:00 Constitutional: Yes: No Distress, Calm Neck: Yes: Supple Cardiovascular: Yes: Regular Rate and Rhythm Respiratory: Yes: Diminished (slightly diminished b/l, no rhonchi) Gastrointestinal: Yes: Normal Bowel Sounds, Soft Genitourinary: Yes: WNL Extremities: Yes: WNL Integumentary: Yes: WNL Neurological: Yes: Alert, Oriented Labs: CBC, BMP 05/10/18 07:40 05/10/18 07:40 Problem List - Problems (1) COPD exacerbation Code(s): J44.1 - CHRONIC OBSTRUCTIVE PULMONARY DISEASE W (ACUTE) EXACERBATION (2) CAD (coronary artery disease) Code(s): I25.10 - ATHSCL HEART DISEASE OF [place] CORONARY ARTERY W/O ANG PCTRS Qualifiers: Coronary Disease-Associated Artery/Lesion type: [place] artery (3) Prostate ca Code(s): C61 - MALIGNANT NEOPLASM OF PROSTATE Assessment/Plan wbc increasing trend, suspect due to steroids -- no respiratory distress -- blood cultures no growth thus far -- cont. current antibiotics, plan switch to cefpodoxime po tomorrow to continue for a few more days -- breathing comfortably on RA continue monitor vitals
--- NOTE | 2018-05-11 12:20 | PN ---
Progress Note, Physician - Current Medication List Current Medications: Active Medications Albuterol Sulfate (Ventolin Hfa Inhaler -) 2 puff IH Q4H PRN PRN Reason: SHORT OF BREATH/WHEEZING Albuterol/Ipratropium (Duoneb -) 1 amp NEB Q4H [facility] Last Admin: 05/11/18 07:51 Dose: 1 amp Aspirin (Ecotrin -) 81 mg PO DAILY [facility] Last Admin: 05/11/18 10:50 Dose: 81 mg Benzocaine/Menthol (Cepacol Lozenge -) 1 each MM PRN PRN PRN Reason: SORE THROAT Azithromycin (Zithromax 500mg Ivpb (Pre-Docked)) 500 mg in 250 mls @ 250 mls/ hr IVPB DAILY [facility] Last Admin: 05/11/18 10:20 Dose: 250 mls/hr Ceftriaxone Sodium (Rocephin 1gm Ivpb (Pre-Docked)) 1 gm in 50 mls @ 100 mls/ hr IVPB DAILY [facility]; Protocol Last Admin: 05/11/18 09:00 Dose: 100 mls/hr Methylprednisolone Sodium Succinate (Solu-Medrol -) 40 mg IVPUSH Q8H-IV [facility] Last Admin: 05/11/18 09:55 Dose: 40 mg Montelukast Sodium (Singulair -) 10 mg PO HS [facility] Last Admin: 05/10/18 21:34 Dose: 10 mg Pantoprazole Sodium (Protonix Iv) 40 mg IVPUSH DAILY [facility] Last Admin: 05/11/18 09:35 Dose: 40 mg Promethazine HCl/Dextromethorphan (Phenergan-Dm Syrup -) 5 ml PO Q6H PRN PRN Reason: COUGH Stop: 05/13/18 06:00 Last Admin: 05/10/18 20:18 Dose: 5 ml - Objective Vital Signs: Vital Signs Temperature 97.8 F 05/11/18 06:00 Pulse Rate 83 05/11/18 06:00 Respiratory Rate 20 05/11/18 09:00 Blood Pressure 122/61 05/11/18 06:00 O2 Sat by Pulse Oximetry (%) 95 05/11/18 09:00 Constitutional: Yes: Well Nourished, No Distress Eyes: Yes: Conjunctiva Clear, EOM Intact HENT: Yes: Atraumatic, Normocephalic Neck: Yes: Supple, Trachea Midline Cardiovascular: Yes: Regular Rate and Rhythm, S1, S2 Respiratory: Yes: Regular, CTA Bilaterally Gastrointestinal: Yes: Normal Bowel Sounds, Soft Labs: CBC, BMP 05/10/18 07:40 05/10/18 07:40 Problem List - Problems (1) Acute exacerbation of chronic obstructive pulmonary disease (COPD) Code(s): J44.1 - CHRONIC OBSTRUCTIVE PULMONARY DISEASE W (ACUTE) EXACERBATION (2) Bronchitis Code(s): J40 - BRONCHITIS, NOT SPECIFIED ACUTE OR CHRONIC (3) Gait difficulty Code(s): R26.9 - UNSPECIFIED ABNORMALITIES OF GAIT AND MOBILITY (4) Myocardial infarct Code(s): I21.9 - ACUTE MYOCARDIAL INFARCTION, UNSPECIFIED Qualifiers: Myocardial infarction type: non-ST elevation myocardial infarction Qualified Code(s): I21.4 - Non-ST elevation (NSTEMI) myocardial infarction (5) CAD (coronary artery disease) Code(s): I25.10 - ATHSCL HEART DISEASE OF [place] CORONARY ARTERY W/O ANG PCTRS Qualifiers: Coronary Disease-Associated Artery/Lesion type: [place] artery (6) Anemia Code(s): D64.9 - ANEMIA, UNSPECIFIED (7) Prostate ca Code(s): C61 - MALIGNANT NEOPLASM OF PROSTATE (8) Sepsis Code(s): A41.9 - SEPSIS, UNSPECIFIED ORGANISM (9) Hyponatremia Code(s): E87.1 - HYPO-OSMOLALITY AND HYPONATREMIA
[2018-05-11] MEDS: MONTELUKAST NA 10 MG TABLET PO SCH (21:07)
[2018-05-11] MEDS: DEXTROMETHORPHAN/PROMETHAZINE 15 MG/6.25 MG/5 ML SYRUP PO PRN (21:39)
[2018-05-11] MEDS: BENZOCAINE/MENTH/CETYLPYRD CL 1 EACH LOZENGE MM PRN (21:42)
[2018-05-12] MEDS: methylPREDNISolone NA SUCC 40 MG/1 ML VIAL IVPUSH SCH ×2 (00:22→12:20)
[2018-05-12] MEDS: ALBUTEROL SO4 2.5/IPRATROPIUM 0.5 INH SOL 3 ML VIAL.NEB. NEB SCH ×5 (00:22→21:05)
[2018-05-12] MEDS: ASPIRIN COATED 81 MG TABLET.EC PO SCH (10:13)
[2018-05-12] MEDS: PANTOPRAZOLE SODIUM 40 MG VIAL IVPUSH SCH (10:13)
[2018-05-12] MEDS: CEFTRIAXONE 1 GM/50 ML BAG IVPB SCH (10:13)
[2018-05-12] MEDS: BENZOCAINE/MENTH/CETYLPYRD CL 1 EACH LOZENGE MM PRN (10:19)
[2018-05-12] MEDS ORDERED: AZITHROMYCIN IVPB 500 MG/250 ML BAG IVPB ONE (12:00)
--- NOTE | 2018-05-12 17:58 | PN ---
Progress Note, Physician History of Present Illness: stable sob improving still requiring support - Current Medication List Current Medications: Active Medications Albuterol Sulfate (Ventolin Hfa Inhaler -) 2 puff IH Q4H PRN PRN Reason: SHORT OF BREATH/WHEEZING Last Admin: 05/12/18 10:14 Dose: 2 puff Albuterol/Ipratropium (Duoneb -) 1 amp NEB Q4H [facility] Last Admin: 05/12/18 16:50 Dose: 1 amp Aspirin (Ecotrin -) 81 mg PO DAILY [facility] Last Admin: 05/12/18 10:13 Dose: 81 mg Benzocaine/Menthol (Cepacol Lozenge -) 1 each MM PRN PRN PRN Reason: SORE THROAT Last Admin: 05/12/18 10:19 Dose: 1 each Ceftriaxone Sodium (Rocephin 1gm Ivpb (Pre-Docked)) 1 gm in 50 mls @ 100 mls/ hr IVPB DAILY [facility]; Protocol Last Admin: 05/12/18 10:13 Dose: 100 mls/hr Methylprednisolone Sodium Succinate (Solu-Medrol -) 40 mg IVPUSH Q12H [facility] Last Admin: 05/12/18 12:20 Dose: 40 mg Montelukast Sodium (Singulair -) 10 mg PO HS [facility] Last Admin: 05/11/18 21:07 Dose: 10 mg Pantoprazole Sodium (Protonix Iv) 40 mg IVPUSH DAILY [facility] Last Admin: 05/12/18 10:13 Dose: 40 mg Promethazine HCl/Dextromethorphan (Phenergan-Dm Syrup -) 5 ml PO Q6H PRN PRN Reason: COUGH Stop: 05/13/18 06:00 Last Admin: 05/10/18 20:18 Dose: 5 ml - Objective Vital Signs: Vital Signs Temperature 98.1 F 05/12/18 14:19 Pulse Rate 89 05/12/18 14:19 Respiratory Rate 20 05/12/18 14:19 Blood Pressure 112/62 05/12/18 14:19 O2 Sat by Pulse Oximetry (%) 97 05/12/18 14:19 Constitutional: Yes: No Distress, Calm Cardiovascular: Yes: Regular Rate and Rhythm Respiratory: Yes: Poor Air Entry Gastrointestinal: Yes: Normal Bowel Sounds, Soft Musculoskeletal: Yes: WNL Extremities: Yes: WNL Neurological: Yes: Alert, Oriented Psychiatric: Yes: Alert, Oriented Labs: CBC, BMP 05/10/18 07:40 05/10/18 07:40 Assessment/Plan Problem List - Problems (1) Acute exacerbation of chronic obstructive pulmonary disease (COPD) Code(s): J44.1 - CHRONIC OBSTRUCTIVE PULMONARY DISEASE W (ACUTE) EXACERBATION (2) Prostate ca Code(s): C61 - MALIGNANT NEOPLASM OF PROSTATE 3 leukocytosis plan continue current mgmt neb treatment ceftriaxone await for all cx reports rest as per the team resp support physio will deescalte probably by tomorrow
--- NOTE | 2018-05-12 18:34 | PN ---
Progress Note, Physician History of Present Illness: Pt is doing well No fever No SOB Doing well - Current Medication List Current Medications: Active Medications Albuterol Sulfate (Ventolin Hfa Inhaler -) 2 puff IH Q4H PRN PRN Reason: SHORT OF BREATH/WHEEZING Last Admin: 05/12/18 10:14 Dose: 2 puff Albuterol/Ipratropium (Duoneb -) 1 amp NEB Q4H [facility] Last Admin: 05/12/18 16:50 Dose: 1 amp Aspirin (Ecotrin -) 81 mg PO DAILY [facility] Last Admin: 05/12/18 10:13 Dose: 81 mg Benzocaine/Menthol (Cepacol Lozenge -) 1 each MM PRN PRN PRN Reason: SORE THROAT Last Admin: 05/12/18 10:19 Dose: 1 each Ceftriaxone Sodium (Rocephin 1gm Ivpb (Pre-Docked)) 1 gm in 50 mls @ 100 mls/ hr IVPB DAILY [facility]; Protocol Last Admin: 05/12/18 10:13 Dose: 100 mls/hr Methylprednisolone Sodium Succinate (Solu-Medrol -) 40 mg IVPUSH Q12H [facility] Last Admin: 05/12/18 12:20 Dose: 40 mg Montelukast Sodium (Singulair -) 10 mg PO HS [facility] Last Admin: 05/11/18 21:07 Dose: 10 mg Pantoprazole Sodium (Protonix Iv) 40 mg IVPUSH DAILY [facility] Last Admin: 05/12/18 10:13 Dose: 40 mg Promethazine HCl/Dextromethorphan (Phenergan-Dm Syrup -) 5 ml PO Q6H PRN PRN Reason: COUGH Stop: 05/13/18 06:00 Last Admin: 05/10/18 20:18 Dose: 5 ml - Objective Vital Signs: Vital Signs Temperature 98.1 F 05/12/18 14:19 Pulse Rate 89 05/12/18 14:19 Respiratory Rate 20 05/12/18 14:19 Blood Pressure 112/62 05/12/18 14:19 O2 Sat by Pulse Oximetry (%) 97 05/12/18 14:19 Constitutional: Yes: Well Nourished, No Distress Eyes: Yes: Conjunctiva Clear, EOM Intact HENT: Yes: Atraumatic, Normocephalic Neck: Yes: Supple, Trachea Midline Cardiovascular: Yes: Regular Rate and Rhythm, S1, S2 Respiratory: Yes: Regular, CTA Bilaterally Labs: CBC, BMP 05/10/18 07:40 05/10/18 07:40 Problem List - Problems (1) Acute exacerbation of chronic obstructive pulmonary disease (COPD) Code(s): J44.1 - CHRONIC OBSTRUCTIVE PULMONARY DISEASE W (ACUTE) EXACERBATION (2) Bronchitis Code(s): J40 - BRONCHITIS, NOT SPECIFIED ACUTE OR CHRONIC (3) Gait difficulty Code(s): R26.9 - UNSPECIFIED ABNORMALITIES OF GAIT AND MOBILITY (4) Myocardial infarct Code(s): I21.9 - ACUTE MYOCARDIAL INFARCTION, UNSPECIFIED Qualifiers: Myocardial infarction type: non-ST elevation myocardial infarction Qualified Code(s): I21.4 - Non-ST elevation (NSTEMI) myocardial infarction (5) CAD (coronary artery disease) Code(s): I25.10 - ATHSCL HEART DISEASE OF [place] CORONARY ARTERY W/O ANG PCTRS Qualifiers: Coronary Disease-Associated Artery/Lesion type: [place] artery (6) Anemia Code(s): D64.9 - ANEMIA, UNSPECIFIED (7) Prostate ca Code(s): C61 - MALIGNANT NEOPLASM OF PROSTATE (8) Sepsis Code(s): A41.9 - SEPSIS, UNSPECIFIED ORGANISM Assessment/Plan (1) Acute exacerbation of chronic obstructive pulmonary disease (COPD) Code(s): J44.1 - CHRONIC OBSTRUCTIVE PULMONARY DISEASE W (ACUTE) EXACERBATION (2) Bronchitis Code(s): J40 - BRONCHITIS, NOT SPECIFIED ACUTE OR CHRONIC (3) Gait difficulty Code(s): R26.9 - UNSPECIFIED ABNORMALITIES OF GAIT AND MOBILITY (4) Myocardial infarct Code(s): I21.9 - ACUTE MYOCARDIAL INFARCTION, UNSPECIFIED Qualifiers: Myocardial infarction type: non-ST elevation myocardial infarction Qualified Code(s): I21.4 - Non-ST elevation (NSTEMI) myocardial infarction (5) CAD (coronary artery disease) Code(s): I25.10 - ATHSCL HEART DISEASE OF [place] CORONARY ARTERY W/O ANG PCTRS Qualifiers: Coronary Disease-Associated Artery/Lesion type: [place] artery Pt is hemodynamically stable No Fever NO SOB Steroids being tapered
[2018-05-12] MEDS: MONTELUKAST NA 10 MG TABLET PO SCH (21:06)
[2018-05-12] MEDS ORDERED: PT OWN MED DRAWER 7, Y5N ONE (22:26)
[2018-05-12] MEDS: DEXTROMETHORPHAN/PROMETHAZINE 15 MG/6.25 MG/5 ML SYRUP PO PRN (22:27)
[2018-05-13] MEDS: methylPREDNISolone NA SUCC 40 MG/1 ML VIAL IVPUSH SCH (00:01)
[2018-05-13] MEDS: ALBUTEROL SO4 2.5/IPRATROPIUM 0.5 INH SOL 3 ML VIAL.NEB. NEB SCH ×4 (00:01→12:26)
[2018-05-13 06:59] VITALS: BP 135/70; PULSE 86; TEMP 97.7
--- NOTE | 2018-05-13 08:56 | PN ---
Progress Note, Physician History of Present Illness: Pt is doing well No fever No SOB Pt is OBD to chair PT - Current Medication List Current Medications: Active Medications Albuterol Sulfate (Ventolin Hfa Inhaler -) 2 puff IH Q4H PRN PRN Reason: SHORT OF BREATH/WHEEZING Last Admin: 05/12/18 10:14 Dose: 2 puff Albuterol/Ipratropium (Duoneb -) 1 amp NEB Q4H [facility] Last Admin: 05/13/18 05:34 Dose: 1 amp Aspirin (Ecotrin -) 81 mg PO DAILY [facility] Last Admin: 05/12/18 10:13 Dose: 81 mg Benzocaine/Menthol (Cepacol Lozenge -) 1 each MM PRN PRN PRN Reason: SORE THROAT Last Admin: 05/12/18 10:19 Dose: 1 each Ceftriaxone Sodium (Rocephin 1gm Ivpb (Pre-Docked)) 1 gm in 50 mls @ 100 mls/ hr IVPB DAILY [facility]; Protocol Last Admin: 05/12/18 10:13 Dose: 100 mls/hr Methylprednisolone Sodium Succinate (Solu-Medrol -) 40 mg IVPUSH Q12H [facility] Last Admin: 05/13/18 00:01 Dose: 40 mg Montelukast Sodium (Singulair -) 10 mg PO HS [facility] Last Admin: 05/12/18 21:06 Dose: 10 mg Pantoprazole Sodium (Protonix Iv) 40 mg IVPUSH DAILY [facility] Last Admin: 05/12/18 10:13 Dose: 40 mg - Objective Vital Signs: Vital Signs Temperature 97.7 F 05/13/18 06:57 Pulse Rate 86 05/13/18 06:57 Respiratory Rate 18 05/13/18 06:57 Blood Pressure 135/70 05/13/18 06:57 O2 Sat by Pulse Oximetry (%) 100 05/13/18 06:57 Constitutional: Yes: Well Nourished, No Distress Eyes: Yes: Conjunctiva Clear, EOM Intact HENT: Yes: Atraumatic, Normocephalic Neck: Yes: Supple, Trachea Midline Cardiovascular: Yes: Regular Rate and Rhythm, S1, S2 Respiratory: Yes: Regular, CTA Bilaterally Labs: CBC, BMP 05/10/18 07:40 05/10/18 07:40 Problem List - Problems (1) Acute exacerbation of chronic obstructive pulmonary disease (COPD) Code(s): J44.1 - CHRONIC OBSTRUCTIVE PULMONARY DISEASE W (ACUTE) EXACERBATION (2) Bronchitis Code(s): J40 - BRONCHITIS, NOT SPECIFIED ACUTE OR CHRONIC (3) Gait difficulty Code(s): R26.9 - UNSPECIFIED ABNORMALITIES OF GAIT AND MOBILITY (4) Myocardial infarct Code(s): I21.9 - ACUTE MYOCARDIAL INFARCTION, UNSPECIFIED Qualifiers: Myocardial infarction type: non-ST elevation myocardial infarction Qualified Code(s): I21.4 - Non-ST elevation (NSTEMI) myocardial infarction (5) CAD (coronary artery disease) Code(s): I25.10 - ATHSCL HEART DISEASE OF [place] CORONARY ARTERY W/O ANG PCTRS Qualifiers: Coronary Disease-Associated Artery/Lesion type: [place] artery (6) Anemia Code(s): D64.9 - ANEMIA, UNSPECIFIED (7) Prostate ca Code(s): C61 - MALIGNANT NEOPLASM OF PROSTATE (8) Sepsis Code(s): A41.9 - SEPSIS, UNSPECIFIED ORGANISM Assessment/Plan (1) Acute exacerbation of chronic obstructive pulmonary disease (COPD) Code(s): J44.1 - CHRONIC OBSTRUCTIVE PULMONARY DISEASE W (ACUTE) EXACERBATION (2) Bronchitis Code(s): J40 - BRONCHITIS, NOT SPECIFIED ACUTE OR CHRONIC (3) Gait difficulty Code(s): R26.9 - UNSPECIFIED ABNORMALITIES OF GAIT AND MOBILITY (4) Myocardial infarct Code(s): I21.9 - ACUTE MYOCARDIAL INFARCTION, UNSPECIFIED Qualifiers: Myocardial infarction type: non-ST elevation myocardial infarction Qualified Code(s): I21.4 - Non-ST elevation (NSTEMI) myocardial infarction (5) CAD (coronary artery disease) Code(s): I25.10 - ATHSCL HEART DISEASE OF [place] CORONARY ARTERY W/O ANG PCTRS Qualifiers: Coronary Disease-Associated Artery/Lesion type: [place] artery Pt is hemodynamically stable No Fever NO SOB Steroids being tapered Pt on PT willl be DCed home with Home care services
[2018-05-13] MEDS: CEFTRIAXONE 1 GM/50 ML BAG IVPB SCH (09:05)
--- NOTE | 2018-05-13 09:06 | PN ---
Progress Note, Physician History of Present Illness: stable doing well breathing better - Current Medication List Current Medications: Active Medications Albuterol Sulfate (Ventolin Hfa Inhaler -) 2 puff IH Q4H PRN PRN Reason: SHORT OF BREATH/WHEEZING Last Admin: 05/12/18 10:14 Dose: 2 puff Albuterol/Ipratropium (Duoneb -) 1 amp NEB Q4H [facility] Last Admin: 05/13/18 05:34 Dose: 1 amp Aspirin (Ecotrin -) 81 mg PO DAILY [facility] Last Admin: 05/12/18 10:13 Dose: 81 mg Benzocaine/Menthol (Cepacol Lozenge -) 1 each MM PRN PRN PRN Reason: SORE THROAT Last Admin: 05/12/18 10:19 Dose: 1 each Ceftriaxone Sodium (Rocephin 1gm Ivpb (Pre-Docked)) 1 gm in 50 mls @ 100 mls/ hr IVPB DAILY [facility]; Protocol Last Admin: 05/12/18 10:13 Dose: 100 mls/hr Methylprednisolone Sodium Succinate (Solu-Medrol -) 40 mg IVPUSH Q12H [facility] Last Admin: 05/13/18 00:01 Dose: 40 mg Montelukast Sodium (Singulair -) 10 mg PO HS [facility] Last Admin: 05/12/18 21:06 Dose: 10 mg Pantoprazole Sodium (Protonix Iv) 40 mg IVPUSH DAILY [facility] Last Admin: 05/12/18 10:13 Dose: 40 mg - Objective Vital Signs: Vital Signs Temperature 97.7 F 05/13/18 06:57 Pulse Rate 86 05/13/18 06:57 Respiratory Rate 18 05/13/18 06:57 Blood Pressure 135/70 05/13/18 06:57 O2 Sat by Pulse Oximetry (%) 100 05/13/18 06:57 Constitutional: Yes: No Distress, Calm Cardiovascular: Yes: Regular Rate and Rhythm Respiratory: Yes: Regular, Poor Air Entry Gastrointestinal: Yes: Normal Bowel Sounds, Soft Musculoskeletal: Yes: WNL Extremities: Yes: WNL Neurological: Yes: Alert, Oriented Psychiatric: Yes: Alert, Oriented Labs: CBC, BMP 05/10/18 07:40 05/10/18 07:40 Assessment/Plan Problem List - Problems (1) Acute exacerbation of chronic obstructive pulmonary disease (COPD) Code(s): J44.1 - CHRONIC OBSTRUCTIVE PULMONARY DISEASE W (ACUTE) EXACERBATION (2) Prostate ca Code(s): C61 - MALIGNANT NEOPLASM OF PROSTATE 3 leukocytosis plan continue current mgmt neb treatment stop abx incentive porter rest as per the team
[2018-05-13] MEDS: PANTOPRAZOLE SODIUM 40 MG VIAL IVPUSH SCH (09:35)
[2018-05-13] MEDS: ASPIRIN COATED 81 MG TABLET.EC PO SCH (09:50)
--- NOTE | 2018-05-13 13:05 | DS ---
Physical Examination Vital Signs: Vital Signs Temperature 97.7 F 05/13/18 06:57 Pulse Rate 86 05/13/18 06:57 Respiratory Rate 18 05/13/18 06:57 Blood Pressure 135/70 05/13/18 06:57 O2 Sat by Pulse Oximetry (%) 100 05/13/18 06:57 Findings/Remarks: Pt was admitted with Acute Excerbation of COPD and acute bronchitis Pt was seeby ID Pt was on zosyn and Zithromax and Pt did well Pt will Be DCed home with Home care and tapering steroids and Augmentin. Pt will F/U in my office Constitutional: Yes: Well Nourished, No Distress Eyes: Yes: WNL, Conjunctiva Clear HENT: Yes: Atraumatic, Normocephalic Labs: CBC, BMP 05/10/18 07:40 05/10/18 07:40 Discharge Summary Reason For Visit: FEVER Current Active Problems Bronchitis (Acute) COPD exacerbation (Acute) Difficulty breathing (Acute) Myocardial infarct (Acute) Hyponitremia Condition: Improved - Instructions Diet, Activity, Other Instructions: Pt will have Home care services Discussed with Brother Dr Najera and Al Mccarthy yesterday Medications as prescribed by MD Follow up with next Saturday05/19/18 Referrals: Clifford Winslow MD [Staff Physician] - 05/19/18 Disposition: [facility]/HOME HEALTH CARE - Home Medications Comprehensive Discharge Medication List: Ambulatory Orders Albuterol Sulfate Inhaler - [Ventolin Hfa Inhaler -] 1 inh PO Q6H 05/08/18 Albuterol Sulfate [Proair Respiclick] 90 mcg IH PRN PRN 05/08/18 Aspirin [ASA -] 81 mg PO DAILY 05/08/18 Brimonidine Tartrate [Alphagan 0.15% -] 1 drop OD TID 05/08/18 Dorzolamide HCl/Pf [Dorzolamide 2% Eye Drop] 10 ml OP TID 05/08/18 Mirabegron [Myrbetriq] 50 mg PO DAILY 05/08/18 Montelukast Na [Singulair -] 10 mg PO HS 05/08/18 Simvastatin [Zocor -] 20 mg PO HS 05/08/18 Prednisone 10 Po BID for one week later 5mg Po BID one week Later 5mg Po daily for one week and Dc Give Incentive spirometer which is at bedside to continue at home Augmentin 875 PO BID 7 days pepsid 20 Po BID
[2018-05-13] MEDS ORDERED: PT OWN MED DRAWER 7, Y5N ONE (14:01)
== END 2018-05-13 15:31 | disposition home health service (06) | DRG 191 ==
LOC: FER 11:19 → FM/S 13:16
PROVIDERS: ADMIT Internal Medicine; ATTEND Internal Medicine
DX: J44.1 Chronic obstructive pulmonary disease with (acute) exacerbation (principal); E87.1 Hypo-osmolality and hyponatremia; C61 Malignant neoplasm of prostate; J20.9 Acute bronchitis, unspecified; J44.0 Chronic obstructive pulmonary disease with (acute) lower respiratory infection; E78.5 Hyperlipidemia, unspecified; D72.829 Elevated white blood cell count, unspecified; Z87.891 Personal history of nicotine dependence; R09.81 Nasal congestion; M62.50 Muscle wasting and atrophy, not elsewhere classified, unspecified site; Z90.79 Acquired absence of other genital organ(s); I25.10 Atherosclerotic heart disease of native coronary artery without angina pectoris; M81.0 Age-related osteoporosis without current pathological fracture; K59.00 Constipation, unspecified; I25.2 Old myocardial infarction; R26.81 Unsteadiness on feet; M19.90 Unspecified osteoarthritis, unspecified site; D64.9 Anemia, unspecified
CPT/HCPCS: 36415; 71045-TC-FY; 80048; 80053; 81003; 81015; 82550; 82962; 83036; 83605; 83880; 84484; 85025; 87040; 87086; 87804; 93005; 94640; 97116-GP; 97162-GP; 99284-25; J0131; J7620

== ENCOUNTER 2018-07-12 12:51 | Inpatient (IN) | payer OTHER ==
[2018-07-12] MEDS ORDERED: SODIUM CHLORIDE 0.9% 500 ML INFUS.BAG IV ONE (12:55)
--- NOTE | 2018-07-12 13:01 | PDOC ---
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 Patient was seen by Dr. Brasher 10 days ago for a lingering cough and was given Augmentin which he has been taking without much relief. He was also given a dose of his nebulizer treatment today with only minor relief. The coguh is productive of yellow sputum. His cough patient was last admitted in April and seen by Dr. Campbell of ID. 07/12/18 13:01 Past History - Past Medical History Allergies/Adverse Reactions: Allergies Allergy/AdvReac Type Severity Reaction Status Date / Time No Known Allergies Allergy Verified 05/08/18 11:19 Home Medications: Ambulatory Orders Albuterol Sulfate Inhaler - [Ventolin Hfa Inhaler -] 1 inh PO Q6H 05/08/18 Aspirin [ASA -] 81 mg PO DAILY 05/08/18 Brimonidine Tartrate [Alphagan 0.15% -] 1 drop OD TID 05/08/18 Dorzolamide HCl/Pf [Dorzolamide 2% Eye Drop] 10 ml OP TID 05/08/18 Mirabegron [Myrbetriq] 50 mg PO DAILY 05/08/18 Montelukast Na [Singulair -] 10 mg PO HS 05/08/18 Simvastatin [Zocor -] 20 mg PO HS 05/08/18 Amoxicillin/Potassium Clav [Augmentin 875-125 Tablet] 1 each PO BID 07/12/18 Anemia: No Asthma: Yes Cancer: Yes (prostate cancer, staging unknown) CVA: No COPD: Yes CHF: No Dementia: No Diabetes: No GI Disorders: No Disorders: Yes (CA PROSTATE) HTN: Yes Hypercholesterolemia: Yes Liver Disease: No Seizures: No Thyroid Disease: No - Immunization History Td Vaccination: Yes TDAP Vaccination: Yes Immunization Up to Date: Yes - Suicide/Smoking/Psychosocial Hx Smoking Status: No Smoking History: Former smoker Have you smoked in the past 12 months: No Number of Cigarettes Smoked Daily: 0 If you are a former smoker, when did you quit?: 30 years ago Hx Alcohol Use: No Drug/Substance Use Hx: No Substance Use Type: None Hx Substance Use Treatment: No Review of Systems - Review of Systems Constitutional: Yes: Chills, Fever. No: Diaphoresis HEENTM: No: Eye Pain, Blurred Vision, Tearing Respiratory: Yes: Cough, Shortness of Breath, SOB with Exertion, Wheezing, Productive cough Cardiac (ROS): No: Chest Pain, Edema, Irregular Heart Rate, Lightheadedness, Palpitations ABD/GI: No: Constipated, Diarrhea, Nausea, Vomiting : No: Burning, Dysuria Musculoskeletal: No: Back Pain, Joint Pain, Muscle Weakness Integumentary: No: Bruising, Erythema, Flushing, Lesions Neurological: No: Headache, Numbness, Paresthesia Psychiatric: No: Anxiety, Depression Hematologic/Lymphatic: No: Anemia, Blood Clots, Easy Bleeding *Physical Exam - Physical Exam General Appearance: Yes: Nourished, Appropriately Dressed. No: Apparent Distress HEENT: positive: EOMI, GEOVANNI, Normal ENT Inspection, Normal Voice Neck: positive: Trachea midline, Normal Thyroid, Supple. negative: Tender, Rigid Respiratory/Chest: positive: Respiratory Distress, Labored Respiration, Rhonchi , Wheezing. negative: Chest Tender, Lungs Clear, Normal Breath Sounds (coarse breath soudns bilattealy but LLL base >R), Accessory Muscle Use Cardiovascular: positive: Regular Rhythm, Tachycardia. negative: Regular Rate Gastrointestinal/Abdominal: positive: Normal Bowel Sounds, Flat, Soft. negative : Tender Lymphatic: negative: Adenopathy, Tenderness Musculoskeletal: positive: Normal Inspection. negative: Decreased Range of Motion Extremity: positive: Normal Capillary Refill, Normal Inspection, Normal Range of Motion. negative: Tender Integumentary: positive: Normal Color, Dry, Warm Neurologic: positive: Fully Oriented, Alert, Normal Mood/Affect, Normal Response. negative: Motor Strength 5/5 (4/5 global stregnth) ED Treatment Course - LABORATORY CBC & Chemistry Diagram: 07/12/18 13:20 07/12/18 13:20 - RADIOLOGY Radiology Studies Ordered: Category Date Time Status CHEST X-RAY PORTABLE* [RAD] Stat Radiology 07/12/18 12:53 Ordered Medical Decision Making - Medical Decision Making 83 year old male with PMH of COPD and recent PNA admission presenting with SOB, tachypnea, fever, tachycardia, and productive cough. High suspicion for PNA given baseline lung pathology. However, CXR negative for focal consolidation, UA negative. WBC 13.9, troponin negative, and EKG showing Rate 99, [place] interval 154, QRS 72, QTc 441, normal axis, without obvious ST or T wave changes. Patient discussed with Dr. Campbell who started her on Cefepime. We microblogged the hospitalist service. 07/12/18 14:16 We spoke to ANNA Knox who kindly accepted the patient for admission to [facility] under Dr. Nicholas. I also signed the patient out to Dr. Brasher. 07/12/18 15:04 *DC/Admit/Observation/Transfer Diagnosis at time of Disposition: Sepsis due to pneumonia - Discharge Dispostion Condition at time of disposition: Good Decision to Admit order: Yes - Referrals Referrals: Clifford Winslow MD [Primary Care Provider] - - Patient Instructions - Post Discharge Activity
--- NOTE | 2018-07-12 13:03 | PDOC ---
Attending Attestation - Resident Resident Name: Za Galdamez - ED Attending Attestation I have performed the following: I have examined & evaluated the patient, The case was reviewed & discussed with the resident, I agree w/resident's findings & plan, Exceptions are as noted - HPI HPI: 07/12/18 13:54 Brought in by his family for increased cough and wheezing. On Augmentin, prescribed by PMD, for presumed community-acquired pneumonia. Family states that he has felt "warm" but did not take his temperature. He is not notably short of breath despite the wheezing. Recent pneumonia requiring admission in April 2018. Also has COPD, elevated cholesterol, and overactive bladder. Medications include Ventolin inhaler, Ventolin by nebulizer, Singulair, simvastatin, and mirabegron - Physicial Exam PE: 07/12/18 13:57 Physical exam reveals a temperature of 101.2, respiratory rate of 24, mildly labored, O2 saturation of 95 on room air, audible wheezing, pulse of 102, and blood pressure 124/68 Corneal opacities are noted, patient being treated for glaucoma. Otherwise ENT clear Neck supple without bruit mass or nodes There are inspiratory and expiratory wheezes bilaterally, symmetric, but no rales and no dullness at the bases CV irregularly irregular 2/6 systolic ejection murmur at the left sternal border without radiation no rubs or gallops. Pulses symmetric. No JVD or edema Abdomen mildly distended but bowel sounds normal, soft without mass tenderness organomegaly Extremities no CCE Skin clear, no rash, adequate turgor, but mucous membranes are dry Neurological cranial nerves intact. No focal deficits. - Medical Decision Making 07/12/18 14:00 Impression: Acute exacerbation of chronic obstructive pulmonary disease, bronchitis, rule out pneumonia. Plan: Labs and chest x-ray, cultures, empiric antibiotic therapy, ID consultation, and admission. ID consult present in the ER. Examined patient. Preliminary orders written. Will follow. Dr. Campbell 07/12/18 14:07 07/12/18 15:35 Chest x-ray shows no acute infiltrate or other sign of pneumonia. The heart is not enlarged, the lungs are hyperinflated, and this suggests COPD. Superimposed bronchitis is also probable CBC shows a mildly elevated white count, but the remainder of the labs are without significant abnormalities With nebulizer treatment, his symptoms are much improved. Wheezing has resolved , dyspnea has resolved, his respiratory rate is normal, and his oxygen saturation is improved. Patient is admitted for treatment of acute exacerbation of COPD, coverage for occult pneumonia, and respiratory support.
[2018-07-12] MEDS ORDERED: methylPREDNISolone NA SUCC 125 MG/2 ML VIAL IVPB ONE (13:20)
--- NOTE | 2018-07-12 13:21 | CON.ID ---
Consult - Past Medical History NURSE TRANSITIONAL: Yes: Other (Pt having unstedy gait,Flat feet) Cardio/Vascular: Yes: CAD (ekg criteria), HTN (H/O HTN), Hyperlipdemia (H/O hyperlipidemia), PA Pulmonary: Yes: Asthma (H/O of Asthma), COPD, Pneumonia (H/O of pneumonia) Gastrointestinal: Yes: Constipation, Other (H/o of gastritis) Renal/: Yes: Other (H/O of CA prostate S/P prostatectomy) Psych: Yes: Anxiety Musculoskeletal: Yes: Chronic low back pain (H/O of back pain), Osteoarthritis ( H/o of OA) Rheumatology: Yes: Other (H/O of OA) Endocrine: Yes: Other (H/O of osteo porosis) - Past Surgical History Past Surgical History: Yes: Prostatectomy (H/O of prostatectomy) - Alcohol/Substance Use Hx Alcohol Use: No - Smoking History Smoking history: Former smoker Have you smoked in the past 12 months: No Aproximately how many cigarettes per day: 0 If you are a former smoker, when did you quit?: 30 years ago - Social History ADL: Independent History of Recent Travel: Yes ([place]) Home Medications - Allergies Allergies/Adverse Reactions: Allergies Allergy/AdvReac Type Severity Reaction Status Date / Time No Known Allergies Allergy Verified 05/08/18 11:19 - Home Medications Home Medications: Ambulatory Orders Albuterol Sulfate Inhaler - [Ventolin Hfa Inhaler -] 1 inh PO Q6H 05/08/18 Aspirin [ASA -] 81 mg PO DAILY 05/08/18 Brimonidine Tartrate [Alphagan 0.15% -] 1 drop OD TID 05/08/18 Dorzolamide HCl/Pf [Dorzolamide 2% Eye Drop] 10 ml OP TID 05/08/18 Mirabegron [Myrbetriq] 50 mg PO DAILY 05/08/18 Montelukast Na [Singulair -] 10 mg PO HS 05/08/18 Simvastatin [Zocor -] 20 mg PO HS 05/08/18 Amoxicillin/Potassium Clav [Augmentin 875-125 Tablet] 1 each PO BID 07/12/18 Physical Exam Vital Signs: Vital Signs Temperature 101.2 F H 07/12/18 12:52 Pulse Rate 102 H 07/12/18 12:52 Respiratory Rate 22 H 07/12/18 12:52 Blood Pressure 124/68 07/12/18 12:52 O2 Sat by Pulse Oximetry (%) 98 07/12/18 12:52
[2018-07-12] MEDS ORDERED: ALBUTEROL SO4 2.5/IPRATROPIUM 0.5 INH SOL 3 ML VIAL.NEB. NEB ONE (13:40)
[2018-07-12] MEDS ORDERED: methylPREDNISolone NA SUCC 125 MG/2 ML VIAL ONE (13:40)
[2018-07-12] MEDS: ALBUTEROL SO4 2.5/IPRATROPIUM 0.5 INH SOL 3 ML VIAL.NEB. NEB SCH ×5 (13:45→21:33)
[2018-07-12 13:53] LABS: MCHC 31.7 g/dl (32.0-35.9)
[2018-07-12 13:57] LABS: HEMATOCRIT 36.5 % (35.4-49); HEMOGLOBIN 11.6 GM/dl (11.7-16.9); MCH 24.5 pg (25.7-33.7); MEAN CELL VOLUME 77.3 fl (80-96); PLATELET COUNT 570 K/MM3 (134-434); RBC 4.72 M/mm3 (4.00-5.60); RDW 15.6 % (11.9-15.9); WHITE BLOOD COUNT 13.9 K/mm3 (4.0-10.8)
[2018-07-12] MEDS: CEFEPIME HCL/D5W 1 GM/50 ML BAG IVPB SCH ×2 (14:03→17:58)
[2018-07-12 14:09] LABS: ACTIVATED PTT 28.6 SECONDS (25.2-36.5)
[2018-07-12 14:11] LABS: URINE APPEARANCE Clear; URINE BILIRUBIN Negative (NEGATIVE); URINE COLOR Yellow; URINE GLUCOSE (UA) Negative (NEGATIVE); URINE KETONE Negative (NEGATIVE); URINE LEUK ESTERASE Negative (NEGATIVE); URINE NITRITE Negative (NEGATIVE); URINE PROTEIN Negative (NEGATIVE); URINE UROBILINOGEN 0.2 (0.2-1.0)
[2018-07-12 14:11] LABS: ALBUMIN 3.2 g/dl (3.5-5.0); ALK PHOS 54 U/L (32-92); ANION GAP 7 MMOL/L (8-16); BILIRUBIN,TOTAL 0.3 mg/dl (0.2-1.0); BLOOD UREA NITROGEN 13 mg/dl (7-18); CALCIUM 9.3 mg/dl (8.4-10.2); CHLORIDE 102 mmol/L (98-107); CO2 25 mmol/L (22-28); CREATININE 1.1 mg/dl (0.6-1.3); GLUCOSE,RANDOM 116 mg/dl (74-106); POTASSIUM 4.2 mmol/L (3.5-5.1); SGOT/AST 17 U/L (10-42); SGPT/ALT 14 U/L (10-40); SODIUM 134 mmol/L (136-145)
[2018-07-12 14:13] LABS: INR 1.32 (0.82-1.09); PROTHROMBIN TIME (PATIENT) 14.7 SEC (10.2-13.0)
[2018-07-12 14:34] LABS: VENOUS PC02 51.7 mmHg (38-52); VENOUS PH 7.35 (7.32-7.42); VENOUS PO2 25.1 mmHg (28-48)
[2018-07-12] MEDS ORDERED: ACETAMINOPHEN 1000 MG/100 ML VIAL (NON FORMULARY) IVPB ONE (14:49)
--- NOTE | 2018-07-12 14:55 | HP ---
CHIEF COMPLAINT: Wheezing and cough PCP: Dr. Winslow HISTORY OF PRESENT ILLNESS: 83 year-old male with a PMH significant for HTN, HLD, CAD, asthma, COPD, recurrent pneumonia, prostate cancer s/p prostatectomy, and dementia. Recently hospitalized for COPD exacerbation +/-pneumonia (05/08-05/13/18). Has had a cough and was started on Augmentin 10 days ago by PCP. His daughter brought him to the ED today for worsening cough and subjective fever over the past 2 days. Patient denies nausea, vomiting, diarrhea. ER course was notable for: (1) Tm 101.2, p102, RR 32 (2) CXR: unremarkable (3) UA negative Recent Travel: No PAST MEDICAL HISTORY: Hypertension Hyperlipidemia Coronary artery disease Asthma COPD Recurrent pneumonia GERD Prostate cancer Osteoarthritis/chronic low back pain Dementia PAST SURGICAL HISTORY: Prostatectomy (1994) Social History: lives with spouse Smoking: former Alcohol: no Drugs: no Family History: Allergies No Known Allergies Allergy (Verified 05/08/18 11:19) HOME MEDICATIONS: Home Medications Medication Instructions Recorded Albuterol Sulfate Inhaler - 1 inh PO Q6H 05/08/18 [Ventolin Hfa Inhaler -] Aspirin [ASA -] 81 mg PO DAILY 05/08/18 Brimonidine Tartrate [Alphagan 1 drop OD TID 05/08/18 0.15% -] Dorzolamide HCl/Pf [Dorzolamide 2% 10 ml OP TID 05/08/18 Eye Drop] Mirabegron [Myrbetriq] 50 mg PO DAILY 05/08/18 Montelukast Na [Singulair -] 10 mg PO HS 05/08/18 Simvastatin [Zocor -] 20 mg PO HS 05/08/18 Amoxicillin/Potassium Clav 1 each PO BID 07/12/18 [Augmentin 875-125 Tablet] REVIEW OF SYSTEMS CONSTITUTIONAL: +subjective fever Absent: chills, diaphoresis, generalized weakness, malaise, loss of appetite, weight change HEENT: Absent: rhinorrhea, nasal congestion, throat pain, throat swelling, difficulty swallowing, mouth swelling, ear pain, eye pain, visual changes CARDIOVASCULAR: Absent: chest pain, syncope, palpitations, irregular heart rate, lightheadedness , peripheral edema RESPIRATORY: +cough Absent: cough, shortness of breath, dyspnea with exertion, orthopnea, wheezing, stridor, hemoptysis GASTROINTESTINAL: Absent: abdominal pain, abdominal distension, nausea, vomiting, diarrhea, constipation, melena, hematochezia GENITOURINARY: Absent: dysuria, frequency, urgency, hesitancy, hematuria, flank pain, genital pain MUSCULOSKELETAL: Absent: myalgia, arthralgia, joint swelling, back pain, neck pain SKIN: Absent: rash, itching, pallor HEMATOLOGIC/IMMUNOLOGIC: Absent: easy bleeding, easy bruising, lymphadenopathy, frequent infections ENDOCRINE: Absent: unexplained weight gain, unexplained weight loss, heat intolerance, cold intolerance NEUROLOGIC: Absent: headache, focal weakness or paresthesias, dizziness, unsteady gait, seizure, mental status changes, bladder or bowel incontinence PSYCHIATRIC: Absent: anxiety, depression, suicidal or homicidal ideation, hallucinations. PHYSICAL EXAMINATION Vital Signs - 24 hr 07/12/18 07/12/18 12:52 14:00 Temperature 101.2 F H Pulse Rate 102 H Pulse Rate [ 91 H Apical] Respiratory 32 H 29 H Rate Blood Pressure 124/68 Blood Pressure 129/85 [Right Arm] O2 Sat by Pulse 98 99 Oximetry (%) GENERAL: Awake, alert, and fully oriented, in no acute distress. EYES: Pupils equal, round and reactive to light, sclera anicteric, conjunctiva clear. LUNGS: Bilateral crackles skilled nursing up; mild expiratory wheezing; no accessory muscle use. HEART: Regular rate and rhythm, S1 and S2 ABDOMEN: Soft, nontender, not distended UPPER EXTREMITIES: 2+ pulses, warm, well-perfused. No cyanosis. No clubbing. No peripheral edema. LOWER EXTREMITIES: 2+ pulses, warm, well-perfused. No calf tenderness. No peripheral edema. NEUROLOGICAL: Cranial nerves II-XII intact. Normal speech. SKIN: Warm, dry, normal turgor Laboratory Results - last 24 hr 07/12/18 07/12/18 07/12/18 13:20 13:20 13:20 WBC 13.9 H RBC 4.72 Hgb 11.6 L Hct 36.5 MCV 77.3 L MCH 24.5 L MCHC 31.7 L RDW 15.6 Plt Count 570 H D MPV 8.0 D Absolute Neuts (auto) 10.3 Neutrophils % No Result Required. Lymphocytes % No Result Required. PT with INR 14.7 H INR 1.32 H PTT (Actin FS) 28.6 VBG pH POC VBG pCO2 POC VBG pO2 Mixed VBG HCO3 Sodium 134 L Potassium 4.2 Chloride 102 Carbon Dioxide 25 Anion Gap 7 L BUN 13 Creatinine 1.1 Creat Clearance w eGFR > 60 Random Glucose 116 H D Lactic Acid Calcium 9.3 Total Bilirubin 0.3 AST 17 ALT 14 D Alkaline Phosphatase 54 Troponin I Total Protein 7.0 Albumin 3.2 L Urine Color Urine Appearance Urine pH Ur Specific [place] Urine Protein Urine Glucose (UA) Urine Ketones Urine Blood Urine Nitrite Urine Bilirubin Urine Urobilinogen Ur Leukocyte Esterase 07/12/18 07/12/18 07/12/18 13:20 13:20 14:00 WBC RBC Hgb Hct MCV MCH MCHC RDW Plt Count MPV Absolute Neuts (auto) Neutrophils % Lymphocytes % PT with INR INR PTT (Actin FS) VBG pH POC VBG pCO2 POC VBG pO2 Mixed VBG HCO3 Sodium Potassium Chloride Carbon Dioxide Anion Gap BUN Creatinine Creat Clearance w eGFR Random Glucose Lactic Acid 1.8 Calcium Total Bilirubin AST ALT Alkaline Phosphatase Troponin I < 0.03 Total Protein Albumin Urine Color Yellow Urine Appearance Clear Urine pH 7.0 Ur Specific [place] 1.020 Urine Protein Negative Urine Glucose (UA) Negative Urine Ketones Negative Urine Blood Negative Urine Nitrite Negative Urine Bilirubin Negative Urine Urobilinogen 0.2 Ur Leukocyte Esterase Negative 07/12/18 14:30 WBC RBC Hgb Hct MCV MCH MCHC RDW Plt Count MPV Absolute Neuts (auto) Neutrophils % Lymphocytes % PT with INR INR PTT (Actin FS) VBG pH 7.35 POC VBG pCO2 51.7 POC VBG pO2 25.1 L Mixed VBG HCO3 27.9 H Sodium Potassium Chloride Carbon Dioxide Anion Gap BUN Creatinine Creat Clearance w eGFR Random Glucose Lactic Acid Calcium Total Bilirubin AST ALT Alkaline Phosphatase Troponin I Total Protein Albumin Urine Color Urine Appearance Urine pH Ur Specific [place] Urine Protein Urine Glucose (UA) Urine Ketones Urine Blood Urine Nitrite Urine Bilirubin Urine Urobilinogen Ur Leukocyte Esterase ASSESSMENT/PLAN 83 year-old male with a PMH significant for HTN, HLD, CAD, asthma, COPD, prostate cancer s/p prostatectomy, and dementia. Sepsis likely secondary to pneumonia Asthma COPD h/o recurrent pneumonia --Tm 101.2, p102, RR 32, lactic acid wnl --CXR unremarkable but clinical picture consistent with pneumonia; CT chest ordered --start cefepime (day #1) --fluid resuscitated 2.5L in ED --duonebs q6h scheduled --Solumedrol 40mg q8h for bronchospasm --continue home Singulair --pulmonary and ID consults --Tylenol for fever Hypertension --BP stable --not on antihypertensives Hyperlipidemia --continue Lipitor Coronary artery disease --continue ASA, statin Prostate cancer s/p prostatectmy --no acute issues --contnue Myrbetriq Dementia --not on medication FEN Fluids: PO intake adequate Electrolytes: replete as indicated Nutrition: vegetarian DVT prophylaxis: subq heparin Physical therapy Dispo: continues to require inpatient care. Full code. Visit type - Emergency Visit Emergency Visit: Yes ED Registration Date: 07/12/18 Care time: The patient presented to the Emergency Department on the above date and was hospitalized for further evaluation of their emergent condition. - New Patient This patient is new to me today: Yes Date on this admission: 07/12/18 - Critical Care Critical Care patient: No
[2018-07-12] MEDS ORDERED: ACETAMINOPHEN INJECTION 100 ML IVPB ONE (14:59)
[2018-07-12 17:25] LABS: MAGNESIUM 2.1 mg/dL (1.8-2.4)
[2018-07-12 17:27] LABS: ANISOCYTOSIS OCCASIONAL; PLATELET ESTIMATE SLT INCREASE
[2018-07-12] MEDS: HEPARIN NA (PORCINE) 5,000 UNITS/ML 1ML VIAL SQ SCH (18:00)
[2018-07-12] MEDS ORDERED: ACETAMINOPHEN 325 MG TABLET (FP) PO PRN (18:21)
[2018-07-12] MEDS: ATORVASTATIN CA 10 MG TABLET (FP) PO SCH (21:33)
[2018-07-12] MEDS: MONTELUKAST NA 10 MG TABLET PO SCH (21:33)
[2018-07-12] MEDS: BRIMONIDINE TARTRATE 0.15% OPHTHALMIC 5 ML BOTTLE OD SCH (21:35)
[2018-07-12] MEDS: DEXTROSE 5%-0.45% SALINE 1,000 ML IV SCH (23:30)
[2018-07-13] MEDS: methylPREDNISolone NA SUCC 40 MG/1 ML VIAL IVPUSH SCH ×3 (02:10→17:05)
[2018-07-13] MEDS: HEPARIN NA (PORCINE) 5,000 UNITS/ML 1ML VIAL SQ SCH ×3 (02:10→17:05)
[2018-07-13] MEDS: CEFEPIME HCL/D5W 1 GM/50 ML BAG IVPB SCH ×3 (02:10→17:05)
[2018-07-13] MEDS: BRIMONIDINE TARTRATE 0.15% OPHTHALMIC 5 ML BOTTLE OD SCH ×3 (06:21→21:59)
[2018-07-13] MEDS: ALBUTEROL SO4 2.5/IPRATROPIUM 0.5 INH SOL 3 ML VIAL.NEB. NEB SCH ×4 (07:39→20:05)
[2018-07-13 09:12] LABS: BASO % 0.5 % (0-2.0); EOS % 0.1 % (0-4.5); HEMATOCRIT 31.5 % (35.4-49); HEMOGLOBIN 9.9 GM/dl (11.7-16.9); LYMPH % 6.5 % (8-40); MCH 24.6 pg (25.7-33.7); MCHC 31.4 g/dl (32.0-35.9); MEAN CELL VOLUME 78.3 fl (80-96); MEAN PLT VOLUME 8.3 fl (7.5-11.1); MONO % 0.8 % (3.8-10.2); NEUT % 92.1 % (42.8-82.8); PLATELET COUNT 497 K/MM3 (134-434); RBC 4.02 M/mm3 (4.00-5.60); RDW 15.4 % (11.9-15.9); WHITE BLOOD COUNT 15.2 K/mm3 (4.0-10.8)
[2018-07-13 09:29] LABS: ALBUMIN 2.8 g/dl (3.5-5.0); ALK PHOS 44 U/L (32-92); ANION GAP 10 MMOL/L (8-16); BLOOD UREA NITROGEN 16 mg/dl (7-18); CALCIUM 8.9 mg/dl (8.4-10.2); CHLORIDE 103 mmol/L (98-107); CO2 22 mmol/L (22-28); CREATININE 0.9 mg/dl (0.6-1.3); GLUCOSE,RANDOM 108 mg/dl (74-106); POTASSIUM 4.5 mmol/L (3.5-5.1); SGOT/AST 15 U/L (10-42); SGPT/ALT 12 U/L (10-40); SODIUM 135 mmol/L (136-145); TOT PROT 6.3 g/dl (6.4-8.3)
[2018-07-13] MEDS: ASPIRIN 81 MG CHEWABLE TABLETS PO SCH (09:50)
[2018-07-13] MEDS ORDERED: PATIENT'S OWN MEDICATION (NON-FORMULARY) (Mirabegron [Myrbetriq] 50 MG) PO SCH (10:00)
--- NOTE | 2018-07-13 10:20 | PN ---
Physical Exam: SUBJECTIVE: Patient seen and examined. Pt reports SOB improved,intermittent cough with yellow sputum, c/o mild abdominal discomfort, denies N/V/D or urinary symptoms. OBJECTIVE: Vital Signs Period Temp Pulse Resp BP Sys/Mendoza Pulse Ox Last 24 Hr 98.1 F-101.2 F 88-108 18-32 99-133/49-85 95-100 GENERAL: The patient is awake, alert, and fully oriented, in no acute distress. HEAD: Normal with no signs of trauma. EYES: PERRL, extraocular movements intact, sclera anicteric, conjunctiva clear. No ptosis. ENT: Ears normal, nares patent, oropharynx clear without exudates, moist mucous membranes. NECK: Trachea midline, full range of motion, supple. LUNGS: Breath sounds equal, BS diminished bilaterally, fine rales, no wheezes, no accessory muscle use. HEART: Regular rate and rhythm, S1, S2 without murmur, rub or gallop. ABDOMEN: Soft, nontender, nondistended, normoactive bowel sounds, no guarding, no rebound, no hepatosplenomegaly, no masses. EXTREMITIES: 2+ pulses, warm, well-perfused, no edema. NEUROLOGICAL: Cranial nerves II through XII grossly intact. Normal speech, gait not observed. PSYCH: Normal mood, normal affect. SKIN: Warm, dry, normal turgor, no rashes or lesions noted 07/12/18 07/12/18 07/12/18 13:20 13:20 14:00 WBC RBC Hgb Hct MCV MCH MCHC RDW Plt Count MPV Absolute Neuts (auto) Neutrophils % Neutrophils % (Manual) Lymphocytes % Lymphocytes % (Manual) Monocytes % Monocytes % (Manual) Eosinophils % Eosinophils % (Manual) Basophils % Hypochromia Platelet Estimate Anisocytosis Microcytosis PT with INR INR PTT (Actin FS) VBG pH POC VBG pCO2 POC VBG pO2 Mixed VBG HCO3 Sodium Potassium Chloride Carbon Dioxide Anion Gap BUN Creatinine Creat Clearance w eGFR Random Glucose Lactic Acid 1.8 Calcium Magnesium Total Bilirubin AST ALT Alkaline Phosphatase Troponin I < 0.03 C-Reactive Protein Total Protein Albumin Urine Color Yellow Urine Appearance Clear Urine pH 7.0 Ur Specific [place] 1.020 Urine Protein Negative Urine Glucose (UA) Negative Urine Ketones Negative Urine Blood Negative Urine Nitrite Negative Urine Bilirubin Negative Urine Urobilinogen 0.2 Ur Leukocyte Esterase Negative Influenza A (Rapid) Influenza B (Rapid) 07/12/18 07/12/18 07/12/18 14:10 14:30 17:00 WBC RBC Hgb Hct MCV MCH MCHC RDW Plt Count MPV Absolute Neuts (auto) Neutrophils % Neutrophils % (Manual) Lymphocytes % Lymphocytes % (Manual) Monocytes % Monocytes % (Manual) Eosinophils % Eosinophils % (Manual) Basophils % Hypochromia Platelet Estimate Anisocytosis Microcytosis PT with INR INR PTT (Actin FS) VBG pH 7.35 POC VBG pCO2 51.7 POC VBG pO2 25.1 L Mixed VBG HCO3 27.9 H Sodium Potassium Chloride Carbon Dioxide Anion Gap BUN Creatinine Creat Clearance w eGFR Random Glucose Lactic Acid Calcium Magnesium 2.1 Total Bilirubin AST ALT Alkaline Phosphatase Troponin I C-Reactive Protein 12.2 H Total Protein Albumin Urine Color Urine Appearance Urine pH Ur Specific [place] Urine Protein Urine Glucose (UA) Urine Ketones Urine Blood Urine Nitrite Urine Bilirubin Urine Urobilinogen Ur Leukocyte Esterase Influenza A (Rapid) Negative Influenza B (Rapid) Negative 07/13/18 07/13/18 07/13/18 06:30 06:30 06:30 WBC 15.2 H RBC 4.02 Hgb 9.9 L Hct 31.5 L MCV 78.3 L MCH 24.6 L MCHC 31.4 L RDW 15.4 Plt Count 497 H MPV 8.3 Absolute Neuts (auto) 14.0 Neutrophils % 92.1 H Neutrophils % (Manual) Lymphocytes % 6.5 L Lymphocytes % (Manual) Monocytes % 0.8 L Monocytes % (Manual) Eosinophils % 0.1 Eosinophils % (Manual) Basophils % 0.5 D Hypochromia Platelet Estimate Anisocytosis Microcytosis PT with INR INR PTT (Actin FS) VBG pH POC VBG pCO2 POC VBG pO2 Mixed VBG HCO3 Sodium 135 L Potassium 4.5 Chloride 103 Carbon Dioxide 22 Anion Gap 10 BUN 16 Creatinine 0.9 Creat Clearance w eGFR > 60 Random Glucose 108 H Lactic Acid Calcium 8.9 Magnesium Total Bilirubin 0.0 L AST 15 ALT 12 Alkaline Phosphatase 44 D Troponin I < 0.03 C-Reactive Protein Total Protein 6.3 L Albumin 2.8 L Urine Color Urine Appearance Urine pH Ur Specific [place] Urine Protein Urine Glucose (UA) Urine Ketones Urine Blood Urine Nitrite Urine Bilirubin Urine Urobilinogen Ur Leukocyte Esterase Influenza A (Rapid) Influenza B (Rapid) Active Medications Generic Name Dose Route Start Last Admin Trade Name Freq PRN Reason Stop Dose Admin Acetaminophen 650 mg 07/12/18 18:21 Tylenol - PO Q6H PRN FEVER Albuterol/Ipratropium 1 amp 07/12/18 20:00 07/13/18 07:39 Duoneb - NEB 1 amp RQID SUSANA Administration Aspirin 81 mg 07/13/18 10:00 Asa - PO DAILY SUSANA Atorvastatin Calcium 10 mg 07/12/18 22:00 07/12/18 21:33 Lipitor - PO 10 mg HS SUSANA Administration Brimonidine Tartrate 1 drop 07/12/18 22:00 07/13/18 06:21 Alphagan 0.15% - OD 1 drop TID SUSANA Administration Heparin Sodium (Porcine) 5,000 unit 07/12/18 18:00 07/13/18 02:10 Heparin - SQ 5,000 unit Q8H-IV SUSANA Administration Cefepime HCl 1 gm in 50 mls @ 100 mls/hr 07/12/18 13:30 07/13/18 02:10 Maxipime 1 Gm Premix Ivpb IVPB 100 mls/hr Q8H-IV SUSANA Administration Protocol Dextrose/Sodium Chloride 1,000 mls @ 75 mls/hr 07/12/18 23:15 07/12/18 23:30 D5-1/2ns - IV 75 mls/hr ASDIR SUSANA Administration Methylprednisolone Sodium Succinate 40 mg 07/13/18 02:00 07/13/18 02:10 Solu-Medrol - IVPUSH 40 mg Q8H-IV SUSANA Administration Montelukast Sodium 10 mg 07/12/18 22:00 07/12/18 21:33 Singulair - PO 10 mg HS SUSANA Administration Non-Formulary Medication 10 ml 07/12/18 22:00 07/13/18 06:21 Dorzolamide Hcl/Pf [Dorzolamide 2% Eye Drop] OP Not Given TID SUSANA Non-Formulary Medication 50 mg 07/13/18 10:00 Mirabegron [Myrbetriq] PO DAILY SUSANA CxR: No acute pathology Blood culture pending Urine culture pending ASSESSMENT/PLAN: 83 year-old male with a PMH significant for HTN, HLD, CAD, asthma, COPD, prostate cancer s/p prostatectomy, and dementia. *Sepsis likely secondary to pneumonia,h/o recurrent pneumonia vs bronchitis -Tm 101.2, afebrile now,WBC slowly trending up likely due to steroid use - ABG reviewed - lactic acid - wnl - Cx: No acute pathology - CT chest ordered -on O2 2L, o2 sat stable - will cont on Cefepime (day #2) - BC pending - will cont on Neb tx - ID following *COPD/ asthma - will cont on IV Steroid/ Neb tx - pul following - will cont on Singulair * Hyponatremia- likely due to poor PO intake - IV hydration *Hypertension-BP stable -not on antihypertensives - will monitor BP closely *Hyperlipidemia -will continue Lipitor *Coronary artery disease - remains cp free -continue ASA, statin, not on BB *Prostate cancer s/p prostatectmy -no acute issues -contnue Myrbetriq * Mild Dementia -not on medication * Chronic anemia - CBC stable, mild drop likely dilutional *FEN Fluids: PO intake adequate Electrolytes: replete as indicated Nutrition: vegetarian DVT prophylaxis: subq heparin GI prophylaxis : Pepcid Physical therapy Dispo: continues to require inpatient care. Full code. Visit type - Emergency Visit Emergency Visit: Yes ED Registration Date: 07/12/18 Care time: The patient presented to the Emergency Department on the above date and was hospitalized for further evaluation of their emergent condition. - New Patient This patient is new to me today: Yes Date on this admission: 07/13/18 - Critical Care Critical Care patient: No
[2018-07-13] MEDS: FAMOTIDINE 20 MG TABLET PO SCH ×2 (10:30→21:58)
[2018-07-13] MEDS ORDERED: ALBUTEROL SO4 2.5/IPRATROPIUM 0.5 INH SOL 3 ML VIAL.NEB. NEB PRN (10:36)
--- NOTE | 2018-07-13 10:38 | PN ---
Progress Note (short form) - Note Progress Note: PULMONARY CONSULTATION DICTATED 07/13/18 IMP ACUTE HYPERCAPNEIC RESPIRATORY FAILURE COPD EXACERBATION PNEUMONIA VS ACUTE BRONCHITIS H/O RECURRENT PNEUMONIA PROSTATE CA HTN ASHD HLD GERD DEMENTIA HYPONATREMIA PLAN IV STEROIDS INHALED BRONCHODILATORS ABX O2 CULTURES LEGIONELLA URINARY ANTIGEN MONITOR LYTES,NA IVF AMBULATORY O2 SAT ON RA PRIOR TO DISCHARGE TO DETERMINE IF PT IS A CANDIDATE FOR HOME O2 DR GAMEZ Problem List - Problems (1) Acute exacerbation of chronic obstructive pulmonary disease (COPD) Code(s): J44.1 - CHRONIC OBSTRUCTIVE PULMONARY DISEASE W (ACUTE) EXACERBATION (2) Bronchitis Code(s): J40 - BRONCHITIS, NOT SPECIFIED ACUTE OR CHRONIC (3) CAD (coronary artery disease) Code(s): I25.10 - ATHSCL HEART DISEASE OF [place] CORONARY ARTERY W/O ANG PCTRS Qualifiers: Coronary Disease-Associated Artery/Lesion type: [place] artery (4) COPD exacerbation Code(s): J44.1 - CHRONIC OBSTRUCTIVE PULMONARY DISEASE W (ACUTE) EXACERBATION (5) Difficulty breathing Code(s): R06.89 - OTHER ABNORMALITIES OF BREATHING (6) Pneumonia Code(s): J18.9 - PNEUMONIA, UNSPECIFIED ORGANISM Qualifiers: Pneumonia type: due to unspecified organism (7) Prostate ca Code(s): C61 - MALIGNANT NEOPLASM OF PROSTATE (8) Acute hypercapnic respiratory failure Code(s): J96.02 - ACUTE RESPIRATORY FAILURE WITH HYPERCAPNIA (9) Hyponatremia Code(s): E87.1 - HYPO-OSMOLALITY AND HYPONATREMIA (10) Anemia Code(s): D64.9 - ANEMIA, UNSPECIFIED
--- NOTE | 2018-07-13 10:54 | CONS ---
DATE OF CONSULTATION: 07/13/2018 REFERRING PROVIDER: Edilma Knox NP History is obtained from medical record; patient is a poor historian. The patient is an 83-year-old [place] male with a past medical history of COPD, recurrent pneumonia, asthma, ASHD, hypertension, hyperlipidemia, prostate CA, status post prostatectomy, dementia; admitted to [facility] with complaint of increasing shortness of breath and cough and chest congestion. Patient was recently hospitalized at [place] secondary to pneumonia,COPD exacerbation on May 08 to May 13, 2018. Apparently, prior to this hospitalization, he had a cough and chest congestion. He was started on Augmentin by his primary care physician without any significant improvement. He presented to the emergency room on July 12 with increasing cough and subjective fever over 2 days. There is no nausea, vomiting , diarrhea. No hemoptysis. On admission, he was noted to be with bronchospasm and shortness of breath. He was started on inhaled bronchodilators and steroids and antibiotics with good clinical response. Chest x-ray on admission did not reveal any evidence of pneumonia. Patient has a history of recurrent pneumonias and was recently hospitalized in early April secondary to above. PAST MEDICAL HISTORY: Again, includes hypertension, hyperlipidemia, ASHD, asthma, COPD, pneumonia, GERD, prostate CA, osteoarthritis, chronic low back pain, dementia. SURGICAL HISTORY: Prostatectomy. SOCIAL HISTORY: History of tobacco use. No occupational exposures. REVIEW OF SYSTEMS: Shortness of breath, cough. No chest pain, no palpitations. Positive fever. No nausea, no vomiting, no abdominal pain. CURRENT MEDICATIONS: Dorzolamide; Myrbetriq; Solu-Medrol 40 q.8; Alphagan eyedrops; Tylenol; Maxipime; heparin; DuoNeb; D5 half-normal saline; famotidine; Lipitor; Singulair; and aspirin. PHYSICAL EXAMINATION: General: The patient is an elderly male, rather awake, alert, in no acute distress. Vital Signs: He is currently afebrile; initial temperature was 101.2, currently 98.2. Blood pressure is 110/54, respiratory rate of 26, O2 saturation is 98% on 2 L. HEENT: Normocephalic, atraumatic. Neck: Supple. Heart: Regular, S1, S2. Chest: Scattered bilateral wheezes and rhonchi. Abdomen: Soft. Bowel sounds are positive. Extremities: No cyanosis or edema. WBCs 15.2, hemoglobin 9.9, hematocrit 31.5 with a platelet count of 497,000; there are 92 polys, 6 lymphs, and 0.8 monos. INR is 1.32. Venous blood gas pH 7.35, pCO2 of 51, and pO2 of 25. BUN 16, creatinine 0.9. CRP is 12.2. Chest x-ray reveals normal cardiac silhouette. No acute infiltrates and/or effusions. IMPRESSION: 1. Acute exacerbation of chronic obstructive pulmonary disease, likely secondary to upper respiratory infection; cannot exclude pneumonia versus acute bronchitis. 2. Atherosclerotic heart disease. 3. History of prostate cancer. 4. Recurrent pneumonia. 5. Gastroesophageal reflux disease. 6. Hypertension. 7. Hyperlipidemia. PLAN: IV steroids, inhaled bronchodilators, supplemental O2, antibiotic therapy , sputum for C and S, obtain CT scan of the chest.f/u chest x-rays, legionella urinary antigen. Robert [id number] MTDD
[2018-07-13 11:09] LABS: N-TERMINAL BNP 1368 pg/ml (5-450)
--- NOTE | 2018-07-13 12:35 | EKG ---
Test Reason : Blood Pressure : / mmHG Vent. Rate : 099 BPM Atrial Rate : 099 BPM P-R Int : 154 ms QRS Dur : 072 ms QT Int : 344 ms P-R-T Axes : 079 043 083 degrees QTc Int : 441 ms NORMAL SINUS RHYTHM LOW VOLTAGE QRS NONSPECIFIC T WAVE ABNORMALITY ABNORMAL ECG WHEN COMPARED WITH ECG OF 08-MAY-2018 11:32, NO SIGNIFICANT CHANGE WAS FOUND Confirmed by PREETI SÁNCHEZ MD ([id number]) on 07/13/2018 12:34:57 PM Referred By: ZINA WILDER Confirmed By:PREETI SÁNCHEZ MD
--- NOTE | 2018-07-13 12:35 | EKG ---
Test Reason : Blood Pressure : / mmHG Vent. Rate : 088 BPM Atrial Rate : 088 BPM P-R Int : 166 ms QRS Dur : 068 ms QT Int : 378 ms P-R-T Axes : 064 008 072 degrees QTc Int : 457 ms NORMAL SINUS RHYTHM LOW VOLTAGE QRS T WAVE ABNORMALITY, CONSIDER ANTERIOR ISCHEMIA ABNORMAL ECG WHEN COMPARED WITH ECG OF 12-JUL-2018 13:11, INVERTED T WAVES HAVE REPLACED NONSPECIFIC T WAVE ABNORMALITY IN ANTERIOR LEADS Confirmed by PREETI SÁNCHEZ MD ([id number]) on 07/13/2018 12:34:38 PM Referred By: Confirmed By:PREETI SÁNCHEZ MD
--- NOTE | 2018-07-13 21:07 | PN ---
Progress Note, Physician Chief Complaint: Pt is relatively better Pt has Dcreased SOB No Chest pain - Current Medication List Current Medications: Active Medications Acetaminophen (Tylenol -) 650 mg PO Q6H PRN PRN Reason: FEVER Albuterol/Ipratropium (Duoneb -) 1 amp NEB RQID [facility] Last Admin: 07/13/18 16:46 Dose: 1 amp Albuterol/Ipratropium (Duoneb -) 1 amp NEB Q6H PRN PRN Reason: SHORTNESS OF BREATH Aspirin (Asa -) 81 mg PO DAILY [facility] Last Admin: 07/13/18 09:50 Dose: 81 mg Atorvastatin Calcium (Lipitor -) 10 mg PO HS [facility] Last Admin: 07/12/18 21:33 Dose: 10 mg Brimonidine Tartrate (Alphagan 0.15% -) 1 drop OD TID [facility] Last Admin: 07/13/18 14:35 Dose: 1 drop Famotidine (Pepcid -) 20 mg PO BID [facility] Last Admin: 07/13/18 10:30 Dose: 20 mg Heparin Sodium (Porcine) (Heparin -) 5,000 unit SQ Q8H-IV SUSANA Last Admin: 07/13/18 17:05 Dose: 5,000 unit Cefepime HCl (Maxipime 1 Gm Premix Ivpb) 1 gm in 50 mls @ 100 mls/hr IVPB Q8H- IV [facility]; Protocol Last Admin: 07/13/18 17:05 Dose: 100 mls/hr Dextrose/Sodium Chloride (D5-1/2ns -) 1,000 mls @ 75 mls/hr IV ASDIR [facility] Last Admin: 07/12/18 23:30 Dose: 75 mls/hr Methylprednisolone Sodium Succinate (Solu-Medrol -) 40 mg IVPUSH Q8H-IV SUSANA Last Admin: 07/13/18 17:05 Dose: 40 mg Montelukast Sodium (Singulair -) 10 mg PO HS [facility] Last Admin: 07/12/18 21:33 Dose: 10 mg Non-Formulary Medication (Dorzolamide Hcl/Pf [Dorzolamide 2% Eye Drop]) 10 ml OP TID [facility] Last Admin: 07/13/18 06:21 Dose: Not Given Non-Formulary Medication (Mirabegron [Myrbetriq]) 50 mg PO DAILY [facility] - Objective Vital Signs: Vital Signs Temperature 98.4 F 07/13/18 14:41 Pulse Rate 106 H 07/13/18 14:41 Respiratory Rate 19 07/13/18 14:41 Blood Pressure 114/49 L 07/13/18 14:41 O2 Sat by Pulse Oximetry (%) 95 07/13/18 16:00 Constitutional: Yes: Anxious Eyes: Yes: Conjunctiva Clear, EOM Intact HENT: Yes: Atraumatic, Normocephalic Neck: Yes: Supple, Trachea Midline Cardiovascular: Yes: Regular Rate and Rhythm, S1, S2 Respiratory: Yes: Regular, CTA Bilaterally Gastrointestinal: Yes: Normal Bowel Sounds, Soft Musculoskeletal: Yes: Joint Stiffness Edema: No Neurological: Yes: Alert, Oriented, Cran Nerves II-XII Intact Labs: CBC, BMP 07/13/18 06:30 07/13/18 06:30 INR, PTT INR 1.32 (0.82-1.09) H 07/12/18 13:20 Problem List - Problems (1) Acute hypercapnic respiratory failure Code(s): J96.02 - ACUTE RESPIRATORY FAILURE WITH HYPERCAPNIA (2) Hyponatremia Code(s): E87.1 - HYPO-OSMOLALITY AND HYPONATREMIA (3) Sepsis due to pneumonia Code(s): J18.9 - PNEUMONIA, UNSPECIFIED ORGANISM; A41.9 - SEPSIS, UNSPECIFIED ORGANISM (4) Anemia Code(s): D64.9 - ANEMIA, UNSPECIFIED (5) Bronchitis Code(s): J40 - BRONCHITIS, NOT SPECIFIED ACUTE OR CHRONIC (6) CAD (coronary artery disease) Code(s): I25.10 - ATHSCL HEART DISEASE OF [place] CORONARY ARTERY W/O ANG PCTRS Qualifiers: Coronary Disease-Associated Artery/Lesion type: [place] artery (7) COPD exacerbation Code(s): J44.1 - CHRONIC OBSTRUCTIVE PULMONARY DISEASE W (ACUTE) EXACERBATION (8) Fever Code(s): R50.9 - FEVER, UNSPECIFIED Qualifiers: Fever type: other (9) Gait difficulty Code(s): R26.9 - UNSPECIFIED ABNORMALITIES OF GAIT AND MOBILITY (10) Hyponatremia Code(s): E87.1 - HYPO-OSMOLALITY AND HYPONATREMIA (11) Myocardial infarct Code(s): I21.9 - ACUTE MYOCARDIAL INFARCTION, UNSPECIFIED Qualifiers: Myocardial infarction type: non-ST elevation myocardial infarction Qualified Code(s): I21.4 - Non-ST elevation (NSTEMI) myocardial infarction (12) Prostate ca Code(s): C61 - MALIGNANT NEOPLASM OF PROSTATE (13) Sepsis Code(s): A41.9 - SEPSIS, UNSPECIFIED ORGANISM Assessment/Plan (1) Acute hypercapnic respiratory failure Code(s): J96.02 - ACUTE RESPIRATORY FAILURE WITH HYPERCAPNIA (2) Hyponatremia Code(s): E87.1 - HYPO-OSMOLALITY AND HYPONATREMIA (3) Sepsis due to pneumonia Code(s): J18.9 - PNEUMONIA, UNSPECIFIED ORGANISM; A41.9 - SEPSIS, UNSPECIFIED ORGANISM (4) Anemia Code(s): D64.9 - ANEMIA, UNSPECIFIED (5) Bronchitis Code(s): J40 - BRONCHITIS, NOT SPECIFIED ACUTE OR CHRONIC (6) CAD (coronary artery disease) Code(s): I25.10 - ATHSCL HEART DISEASE OF [place] CORONARY ARTERY W/O ANG PCTRS Qualifiers: Coronary Disease-Associated Artery/Lesion type: [place] artery (7) COPD exacerbation Code(s): J44.1 - CHRONIC OBSTRUCTIVE PULMONARY DISEASE W (ACUTE) EXACERBATION (8) Fever Code(s): R50.9 - FEVER, UNSPECIFIED Qualifiers: Fever type: other Qualified Code(s): R50.81 - Fever presenting with conditions classified elsewhere (9) Gait difficulty Code(s): R26.9 - UNSPECIFIED ABNORMALITIES OF GAIT AND MOBILITY (10) Hyponatremia Code(s): E87.1 - HYPO-OSMOLALITY AND HYPONATREMIA (11) Myocardial infarct Code(s): I21.9 - ACUTE MYOCARDIAL INFARCTION, UNSPECIFIED Qualifiers: Myocardial infarction type: non-ST elevation myocardial infarction Qualified Code(s): I21.4 - Non-ST elevation (NSTEMI) myocardial infarction (12) Prostate ca Code(s): C61 - MALIGNANT NEOPLASM OF PROSTATE (13) Sepsis Code(s): A41.9 - SEPSIS, UNSPECIFIED ORGANISM Pt BP is better with IV fluids IV steroids No Fever now Bronchodilators
[2018-07-13] MEDS ORDERED: PT OWN MED DRAWER 7, Y5N ONE (21:57)
[2018-07-13] MEDS: MONTELUKAST NA 10 MG TABLET PO SCH (21:58)
[2018-07-13] MEDS: ATORVASTATIN CA 10 MG TABLET (FP) PO SCH (21:58)
[2018-07-13] MEDS ORDERED: guaiFENesin/CODEINE 5 ML UNIT-DOSE CUPS PO PRN (22:25)
[2018-07-13] MEDS: DEXTROSE 5%-0.45% SALINE 1,000 ML IV SCH (23:15)
[2018-07-14] MEDS: guaiFENesin/CODEINE 10 ML UNIT-DOSE CUPS PO PRN ×3 (01:04→21:54)
[2018-07-14] MEDS: methylPREDNISolone NA SUCC 40 MG/1 ML VIAL IVPUSH SCH ×2 (01:04→09:06)
[2018-07-14] MEDS: HEPARIN NA (PORCINE) 5,000 UNITS/ML 1ML VIAL SQ SCH ×2 (01:05→09:07)
[2018-07-14] MEDS: CEFEPIME HCL/D5W 1 GM/50 ML BAG IVPB SCH ×2 (01:06→09:06)
[2018-07-14] MEDS: BRIMONIDINE TARTRATE 0.15% OPHTHALMIC 5 ML BOTTLE OD SCH ×2 (05:40→21:49)
[2018-07-14] MEDS: ALBUTEROL SO4 2.5/IPRATROPIUM 0.5 INH SOL 3 ML VIAL.NEB. NEB SCH ×2 (07:50→21:48)
[2018-07-14 08:51] LABS: BASO % 0.1 % (0-2.0); EOS % 0.1 % (0-4.5); HEMATOCRIT 30.4 % (35.4-49); HEMOGLOBIN 9.5 GM/dl (11.7-16.9); LYMPH % 5.5 % (8-40); MCH 24.3 pg (25.7-33.7); MCHC 31.2 g/dl (32.0-35.9); MEAN CELL VOLUME 77.8 fl (80-96); MEAN PLT VOLUME 8.1 fl (7.5-11.1); MONO % 2.2 % (3.8-10.2); NEUT % 92.1 % (42.8-82.8); PLATELET COUNT 499 K/MM3 (134-434); RBC 3.91 M/mm3 (4.00-5.60); RDW 15.6 % (11.9-15.9); WHITE BLOOD COUNT 17.9 K/mm3 (4.0-10.8)
[2018-07-14 08:55] LABS: ANION GAP 6 MMOL/L (8-16); BLOOD UREA NITROGEN 21 mg/dl (7-18); CALCIUM 9.1 mg/dl (8.4-10.2); CHLORIDE 108 mmol/L (98-107); CO2 24 mmol/L (22-28); CREATININE 0.9 mg/dl (0.6-1.3); GLUCOSE,RANDOM 142 mg/dl (74-106); POTASSIUM 4.9 mmol/L (3.5-5.1); SODIUM 138 mmol/L (136-145)
--- NOTE | 2018-07-14 08:57 | PN ---
Progress Note, Physician History of Present Illness: patient was very restless last night says he was having lot of breathing difficulty - Current Medication List Current Medications: Active Medications Acetaminophen (Tylenol -) 650 mg PO Q6H PRN PRN Reason: FEVER Albuterol/Ipratropium (Duoneb -) 1 amp NEB RQID SUSANA Last Admin: 07/13/18 20:05 Dose: 1 amp Albuterol/Ipratropium (Duoneb -) 1 amp NEB Q6H PRN PRN Reason: SHORTNESS OF BREATH Aspirin (Asa -) 81 mg PO DAILY REPLACED BY [facility] Last Admin: 07/13/18 09:50 Dose: 81 mg Atorvastatin Calcium (Lipitor -) 10 mg PO HS REPLACED BY [facility] Last Admin: 07/13/18 21:58 Dose: 10 mg Brimonidine Tartrate (Alphagan 0.15% -) 1 drop OD TID SUSANA Last Admin: 07/14/18 05:40 Dose: 1 drop Famotidine (Pepcid -) 20 mg PO BID SUSANA Last Admin: 07/13/18 21:58 Dose: 20 mg Guaifenesin/Codeine Phosphate (Robitussin Ac -) 5 ml PO Q8H PRN PRN Reason: COUGH Last Admin: 07/14/18 01:04 Dose: 5 ml Heparin Sodium (Porcine) (Heparin -) 5,000 unit SQ Q8H-IV SUSANA Last Admin: 07/14/18 01:05 Dose: 5,000 unit Cefepime HCl (Maxipime 1 Gm Premix Ivpb) 1 gm in 50 mls @ 100 mls/hr IVPB Q8H- IV SUSANA; Protocol Last Admin: 07/14/18 01:06 Dose: 100 mls/hr Dextrose/Sodium Chloride (D5-1/2ns -) 1,000 mls @ 75 mls/hr IV ASDIR SUSANA Last Admin: 07/13/18 23:15 Dose: 75 mls/hr Methylprednisolone Sodium Succinate (Solu-Medrol -) 40 mg IVPUSH Q8H-IV SUSANA Last Admin: 07/14/18 01:04 Dose: 40 mg Montelukast Sodium (Singulair -) 10 mg PO HS REPLACED BY [facility] Last Admin: 07/13/18 21:58 Dose: 10 mg Non-Formulary Medication (Dorzolamide Hcl/Pf [Dorzolamide 2% Eye Drop]) 10 ml OP TID SUSANA Last Admin: 07/13/18 06:21 Dose: Not Given Non-Formulary Medication (Mirabegron [Myrbetriq]) 50 mg PO DAILY REPLACED BY [facility] - Objective Vital Signs: Vital Signs Temperature 97.4 F L 07/14/18 05:41 Pulse Rate 85 07/14/18 05:41 Respiratory Rate 19 07/14/18 05:41 Blood Pressure 119/64 07/14/18 05:41 O2 Sat by Pulse Oximetry (%) 96 07/14/18 05:48 Constitutional: Yes: Calm, Mild Distress Neck: Yes: Supple Cardiovascular: Yes: Regular Rate and Rhythm Respiratory: Yes: On Nasal O2 Gastrointestinal: Yes: Normal Bowel Sounds, Soft Musculoskeletal: Yes: WNL Extremities: Yes: WNL Neurological: Yes: Alert, Oriented Psychiatric: Yes: Alert, Oriented Labs: INR, PTT INR 1.32 (0.82-1.09) H 07/12/18 13:20 Assessment/Plan Problem List - Problems (1) Acute hypercapnic respiratory failure Code(s): J96.02 - ACUTE RESPIRATORY FAILURE WITH HYPERCAPNIA (2) Hyponatremia Code(s): E87.1 - HYPO-OSMOLALITY AND HYPONATREMIA (3) Sepsis due to pneumonia Code(s): J18.9 - PNEUMONIA, UNSPECIFIED ORGANISM; A41.9 - SEPSIS, UNSPECIFIED ORGANISM (4) Anemia Code(s): D64.9 - ANEMIA, UNSPECIFIED (5) Bronchitis Code(s): J40 - BRONCHITIS, NOT SPECIFIED ACUTE OR CHRONIC (6) CAD (coronary artery disease) Code(s): I25.10 - ATHSCL HEART DISEASE OF [place] CORONARY ARTERY W/O ANG PCTRS Qualifiers: Coronary Disease-Associated Artery/Lesion type: [place] artery (7) COPD exacerbation Code(s): J44.1 - CHRONIC OBSTRUCTIVE PULMONARY DISEASE W (ACUTE) EXACERBATION (8) Fever Code(s): R50.9 - FEVER, UNSPECIFIED Qualifiers: Fever type: other (9) Gait difficulty Code(s): R26.9 - UNSPECIFIED ABNORMALITIES OF GAIT AND MOBILITY (10) Hyponatremia Code(s): E87.1 - HYPO-OSMOLALITY AND HYPONATREMIA (11) Myocardial infarct Code(s): I21.9 - ACUTE MYOCARDIAL INFARCTION, UNSPECIFIED Qualifiers: Myocardial infarction type: non-ST elevation myocardial infarction Qualified Code(s): I21.4 - Non-ST elevation (NSTEMI) myocardial infarction (12) Prostate ca Code(s): C61 - MALIGNANT NEOPLASM OF PROSTATE (13) Sepsis Code(s): A41.9 - SEPSIS, UNSPECIFIED ORGANISM plan will continue current mgmt continue abx watch for fever rest as per the team
[2018-07-14] MEDS: ASPIRIN 81 MG CHEWABLE TABLETS PO SCH (09:05)
[2018-07-14] MEDS: FAMOTIDINE 20 MG TABLET PO SCH ×2 (09:06→21:51)
[2018-07-14 10:56] VITALS: BMI 20.9
--- NOTE | 2018-07-14 11:38 | PN ---
Progress Note (short form) - Note Progress Note: PULMONARY CT CHEST REVIEWED : LEFT UPPER LOBE NODULE WILL NEED TO BE FOLLOWED AN OUTPATIENT (SHORT TERM CT CHEST) MODERATE EMPHYSEMATOUS CHANGES THROUGHOUT BOTH LUNG SHELBY LARGE HIATAL HERNIA WITH FLUID NOTED IN THORACIC ESOPHAGUS FULL FOLLOW UP NOTE TO FOLLOW. Mt VICTORIA MD
--- NOTE | 2018-07-14 12:31 | PN ---
Progress Note (short form) - Note Progress Note: PULMONARY CHART REVIEWED SOME DIFFICULTY AT NIGHT WITH COUGH/SOB OOB TO CHAIR VSS/AFEBRILE ANICTERIC DIMINISHED DIFFUSE BREATH SOUNDS S1S2 BS+ NO EDEMA LABS/MEDS/NOTES/IMAGES/MICRO REVIEWED IMP ACUTE HYPERCAPNEIC RESPIRATORY FAILURE COPD EXACERBATION PNEUMONIA VS ACUTE BRONCHITIS H/O RECURRENT PNEUMONIA PROSTATE CA HTN ASHD HLD GERD DEMENTIA HYPONATREMIA PLAN IV STEROIDS INHALED BRONCHODILATORS ABX O2 FOLLOW CULTURES MONITOR LYTES,NA IVF AMBULATORY O2 SAT ON RA PRIOR TO DISCHARGE TO DETERMINE IF PT IS A CANDIDATE FOR HOME O2 Mt VICTORIA MD
--- NOTE | 2018-07-14 13:39 | ECHO ---
Name: STANLEY FELIPE Exam:Adult Echocardiogram Study Date: 07/14/2018 12:58 PM Age: 83 yrs Reason For Study: CHF Height: 64 in Weight: 121 lb BSA: 1.6 m2 MMode/2D Measurements & Calculations IVSd: 0.81 cm Ao root diam: 3.1 cm LVIDd: 4.2 cm LA dimension: 3.4 cm LVIDs: 2.7 cm LVPWd: 0.78 cm EDV(Teich): 80.1 ml ESV(Teich): 27.3 ml Doppler Measurements & Calculations MV E max grecia: 107.8 cm/sec MV A max grecia: 144.5 cm/sec MV dec slope: 911.7 cm/sec2 MV E/A: 0.75 TR max grecia: 260.4 cm/sec TR max P.1 mmHg Procedure A complete two-dimensional transthoracic echocardiogram was performed (2D, M-mode, Doppler and color flow Doppler). Left Ventricle The left ventricle is normal in size. Left ventricular systolic function is normal. Ejection Fraction = 60- 65%. No regional wall motion abnormalities noted. Right Ventricle The right ventricle is normal size. The right ventricular systolic function is normal. Atria The left atrial size is normal. Right atrial size is normal. Mitral Valve There is mild mitral annular calcification. There is no mitral regurgitation noted. Tricuspid Valve The tricuspid valve is normal in structure and function. There is mild to moderate tricuspid regurgit ation. Pulmonary artery systolic pressure is at least 30 mmHg assuming RA pressure of 3 mmHg. Aortic Valve There is mild aortic sclerosis.;. No aortic regurgitation is present. Pulmonic Valve The pulmonic valve is not well visualized. Great Vessels The aortic root is normal size. Pericardium/Pleura There is no pericardial effusion. Interpretation Summary The left ventricle is normal in size. Left ventricular systolic function is normal. No regional wall motion abnormalities noted. Ejection Fraction = 60-65%. The right ventricular systolic function is normal. The left atrial size is normal. Right atrial size is normal. There is mild mitral annular calcification. There is mild to moderate tricuspid regurgitation. Pulmonary artery systolic pressure is at least 30 mmHg assuming RA pressure of 3 mmHg There is mild aortic sclerosis. There is no pericardial effusion. Previous study is not available for comparison Ravinder Amaya MD 07/14/2018 01:38 PM
--- NOTE | 2018-07-14 15:38 | PN ---
Progress Note, Physician Chief Complaint: Pt is relatively better Pt has Dcreased SOB No Chest pain Pt is having cough - Current Medication List Current Medications: Active Medications Acetaminophen (Tylenol -) 650 mg PO Q6H PRN PRN Reason: FEVER Albuterol/Ipratropium (Duoneb -) 1 amp NEB RQID [facility] Last Admin: 07/14/18 07:50 Dose: 1 amp Albuterol/Ipratropium (Duoneb -) 1 amp NEB Q6H PRN PRN Reason: SHORTNESS OF BREATH Aspirin (Asa -) 81 mg PO DAILY [facility] Last Admin: 07/14/18 09:05 Dose: 81 mg Atorvastatin Calcium (Lipitor -) 10 mg PO HS [facility] Last Admin: 07/13/18 21:58 Dose: 10 mg Brimonidine Tartrate (Alphagan 0.15% -) 1 drop OD TID [facility] Last Admin: 07/14/18 05:40 Dose: 1 drop Famotidine (Pepcid -) 20 mg PO BID [facility] Last Admin: 07/14/18 09:06 Dose: 20 mg Guaifenesin/Codeine Phosphate (Robitussin Ac -) 5 ml PO Q8H PRN PRN Reason: COUGH Last Admin: 07/14/18 11:07 Dose: 5 ml Heparin Sodium (Porcine) (Heparin -) 5,000 unit SQ Q8H-IV [facility] Last Admin: 07/14/18 09:07 Dose: 5,000 unit Cefepime HCl (Maxipime 1 Gm Premix Ivpb) 1 gm in 50 mls @ 100 mls/hr IVPB Q8H- IV [facility]; Protocol Last Admin: 07/14/18 09:06 Dose: 100 mls/hr Dextrose/Sodium Chloride (D5-1/2ns -) 1,000 mls @ 75 mls/hr IV ASDIR [facility] Last Admin: 07/13/18 23:15 Dose: 75 mls/hr Methylprednisolone Sodium Succinate (Solu-Medrol -) 40 mg IVPUSH Q8H-IV [facility] Last Admin: 07/14/18 09:06 Dose: 40 mg Montelukast Sodium (Singulair -) 10 mg PO HS [facility] Last Admin: 07/13/18 21:58 Dose: 10 mg Non-Formulary Medication (Dorzolamide Hcl/Pf [Dorzolamide 2% Eye Drop]) 10 ml OP TID [facility] Last Admin: 07/13/18 06:21 Dose: Not Given Non-Formulary Medication (Mirabegron [Myrbetriq]) 50 mg PO DAILY [facility] - Objective Vital Signs: Vital Signs Temperature 98.6 F 07/14/18 14:00 Pulse Rate 96 H 07/14/18 14:00 Respiratory Rate 18 07/14/18 14:00 Blood Pressure 100/49 L 07/14/18 14:00 O2 Sat by Pulse Oximetry (%) 99 07/14/18 14:00 Constitutional: Yes: No Distress, Anxious Eyes: Yes: Conjunctiva Clear, EOM Intact HENT: Yes: Atraumatic, Normocephalic Neck: Yes: Supple, Trachea Midline Cardiovascular: Yes: Regular Rate and Rhythm, S1, S2 Respiratory: Yes: Regular, CTA Bilaterally, Other (Pt having coarse breathsounds ) Gastrointestinal: Yes: Normal Bowel Sounds, Soft Edema: No Neurological: Yes: Alert, Oriented, Cran Nerves II-XII Intact Labs: CBC, BMP 07/14/18 07:35 07/14/18 07:35 INR, PTT INR 1.32 (0.82-1.09) H 07/12/18 13:20 Problem List - Problems (1) Acute hypercapnic respiratory failure Code(s): J96.02 - ACUTE RESPIRATORY FAILURE WITH HYPERCAPNIA (2) Hyponatremia Code(s): E87.1 - HYPO-OSMOLALITY AND HYPONATREMIA (3) Sepsis due to pneumonia Code(s): J18.9 - PNEUMONIA, UNSPECIFIED ORGANISM; A41.9 - SEPSIS, UNSPECIFIED ORGANISM (4) Anemia Code(s): D64.9 - ANEMIA, UNSPECIFIED (5) Bronchitis Code(s): J40 - BRONCHITIS, NOT SPECIFIED ACUTE OR CHRONIC (6) CAD (coronary artery disease) Code(s): I25.10 - ATHSCL HEART DISEASE OF [place] CORONARY ARTERY W/O ANG PCTRS Qualifiers: Coronary Disease-Associated Artery/Lesion type: [place] artery (7) COPD exacerbation Code(s): J44.1 - CHRONIC OBSTRUCTIVE PULMONARY DISEASE W (ACUTE) EXACERBATION (8) Fever Code(s): R50.9 - FEVER, UNSPECIFIED Qualifiers: Fever type: other (9) Gait difficulty Code(s): R26.9 - UNSPECIFIED ABNORMALITIES OF GAIT AND MOBILITY (10) Hyponatremia Code(s): E87.1 - HYPO-OSMOLALITY AND HYPONATREMIA (11) Myocardial infarct Code(s): I21.9 - ACUTE MYOCARDIAL INFARCTION, UNSPECIFIED Qualifiers: Myocardial infarction type: non-ST elevation myocardial infarction Qualified Code(s): I21.4 - Non-ST elevation (NSTEMI) myocardial infarction (12) Prostate ca Code(s): C61 - MALIGNANT NEOPLASM OF PROSTATE (13) Sepsis Code(s): A41.9 - SEPSIS, UNSPECIFIED ORGANISM Assessment/Plan (1) Acute hypercapnic respiratory failure Code(s): J96.02 - ACUTE RESPIRATORY FAILURE WITH HYPERCAPNIA (2) Hyponatremia Code(s): E87.1 - HYPO-OSMOLALITY AND HYPONATREMIA (3) Sepsis due to pneumonia Code(s): J18.9 - PNEUMONIA, UNSPECIFIED ORGANISM; A41.9 - SEPSIS, UNSPECIFIED ORGANISM (4) Anemia Code(s): D64.9 - ANEMIA, UNSPECIFIED (5) Bronchitis Code(s): J40 - BRONCHITIS, NOT SPECIFIED ACUTE OR CHRONIC (6) CAD (coronary artery disease) Code(s): I25.10 - ATHSCL HEART DISEASE OF [place] CORONARY ARTERY W/O ANG PCTRS Qualifiers: Coronary Disease-Associated Artery/Lesion type: [place] artery (7) COPD exacerbation Code(s): J44.1 - CHRONIC OBSTRUCTIVE PULMONARY DISEASE W (ACUTE) EXACERBATION (8) Fever Code(s): R50.9 - FEVER, UNSPECIFIED Qualifiers: Fever type: other Qualified Code(s): R50.81 - Fever presenting with conditions classified elsewhere (9) Gait difficulty Code(s): R26.9 - UNSPECIFIED ABNORMALITIES OF GAIT AND MOBILITY (10) Hyponatremia Code(s): E87.1 - HYPO-OSMOLALITY AND HYPONATREMIA (11) Myocardial infarct Code(s): I21.9 - ACUTE MYOCARDIAL INFARCTION, UNSPECIFIED Qualifiers: Myocardial infarction type: non-ST elevation myocardial infarction Qualified Code(s): I21.4 - Non-ST elevation (NSTEMI) myocardial infarction (12) Prostate ca Code(s): C61 - MALIGNANT NEOPLASM OF PROSTATE (13) Sepsis Code(s): A41.9 - SEPSIS, UNSPECIFIED ORGANISM Pt BP is better with IV fluids IV steroids Bronchodilators Pt is relatively better
[2018-07-14] MEDS: ATORVASTATIN CA 10 MG TABLET (FP) PO SCH (21:51)
[2018-07-14] MEDS: MONTELUKAST NA 10 MG TABLET PO SCH (21:51)
[2018-07-14] MEDS: MELATONIN 5 MG TABLETS PO PRN (21:53)
[2018-07-15] MEDS: HEPARIN NA (PORCINE) 5,000 UNITS/ML 1ML VIAL SQ SCH ×3 (02:23→18:42)
[2018-07-15] MEDS: CEFEPIME HCL/D5W 1 GM/50 ML BAG IVPB SCH ×3 (02:24→18:42)
[2018-07-15] MEDS: methylPREDNISolone NA SUCC 40 MG/1 ML VIAL IVPUSH SCH ×3 (02:24→18:43)
[2018-07-15] MEDS: BRIMONIDINE TARTRATE 0.15% OPHTHALMIC 5 ML BOTTLE OD SCH ×3 (06:00→21:36)
[2018-07-15 08:26] LABS: HEMATOCRIT 30.2 % (35.4-49); HEMOGLOBIN 9.3 GM/dl (11.7-16.9); MCHC 30.9 g/dl (32.0-35.9); MEAN CELL VOLUME 77.7 fl (80-96); PLATELET COUNT 498 K/MM3 (134-434); RBC 3.88 M/mm3 (4.00-5.60); RDW 15.5 % (11.9-15.9); WHITE BLOOD COUNT 17.2 K/mm3 (4.0-10.8)
[2018-07-15 08:27] LABS: ANION GAP 6 MMOL/L (8-16); BLOOD UREA NITROGEN 23 mg/dl (7-18); CALCIUM 8.5 mg/dl (8.4-10.2); CHLORIDE 106 mmol/L (98-107); CO2 25 mmol/L (22-28); CREATININE 0.8 mg/dl (0.6-1.3); GLUCOSE,RANDOM 138 mg/dl (74-106); POTASSIUM 4.7 mmol/L (3.5-5.1); SODIUM 137 mmol/L (136-145)
[2018-07-15] MEDS: ALBUTEROL SO4 2.5/IPRATROPIUM 0.5 INH SOL 3 ML VIAL.NEB. NEB SCH ×4 (08:30→21:34)
[2018-07-15 09:45] LABS: PLATELET ESTIMATE INCREASED
--- NOTE | 2018-07-15 10:22 | PN ---
Progress Note, Physician History of Present Illness: PULMONARY ALERT,LESS DYSPNEIC,LESS CONGESTED,+COUGH - Current Medication List Current Medications: Active Medications Acetaminophen (Tylenol -) 650 mg PO Q6H PRN PRN Reason: FEVER Last Admin: 07/14/18 21:53 Dose: 650 mg Albuterol/Ipratropium (Duoneb -) 1 amp NEB RQID [facility] Last Admin: 07/14/18 21:48 Dose: 1 amp Albuterol/Ipratropium (Duoneb -) 1 amp NEB Q6H PRN PRN Reason: SHORTNESS OF BREATH Aspirin (Asa -) 81 mg PO DAILY [facility] Last Admin: 07/14/18 09:05 Dose: 81 mg Atorvastatin Calcium (Lipitor -) 10 mg PO HS [facility] Last Admin: 07/14/18 21:51 Dose: 10 mg Brimonidine Tartrate (Alphagan 0.15% -) 1 drop OD TID [facility] Last Admin: 07/14/18 21:49 Dose: 1 drop Famotidine (Pepcid -) 20 mg PO BID [facility] Last Admin: 07/14/18 21:51 Dose: 20 mg Guaifenesin/Codeine Phosphate (Robitussin Ac -) 5 ml PO Q8H PRN PRN Reason: COUGH Last Admin: 07/14/18 21:54 Dose: 5 ml Heparin Sodium (Porcine) (Heparin -) 5,000 unit SQ Q8H-IV [facility] Last Admin: 07/15/18 02:23 Dose: 5,000 unit Cefepime HCl (Maxipime 1 Gm Premix Ivpb) 1 gm in 50 mls @ 100 mls/hr IVPB Q8H- IV [facility]; Protocol Last Admin: 07/15/18 02:24 Dose: 100 mls/hr Dextrose/Sodium Chloride (D5-1/2ns -) 1,000 mls @ 75 mls/hr IV ASDIR [facility] Last Admin: 07/13/18 23:15 Dose: 75 mls/hr Melatonin (Melatonin) 5 mg PO HS PRN PRN Reason: INSOMNIA Last Admin: 07/14/18 21:53 Dose: 5 mg Methylprednisolone Sodium Succinate (Solu-Medrol -) 40 mg IVPUSH Q8H-IV [facility] Last Admin: 07/15/18 02:24 Dose: 40 mg Montelukast Sodium (Singulair -) 10 mg PO HS [facility] Last Admin: 07/14/18 21:51 Dose: 10 mg Non-Formulary Medication (Dorzolamide Hcl/Pf [Dorzolamide 2% Eye Drop]) 10 ml OP TID [facility] Last Admin: 07/13/18 06:21 Dose: Not Given Non-Formulary Medication (Mirabegron [Myrbetriq]) 50 mg PO DAILY [facility] - Objective Vital Signs: Vital Signs Temperature 97.9 F 07/15/18 06:00 Pulse Rate 88 07/15/18 06:00 Respiratory Rate 18 07/15/18 06:00 Blood Pressure 121/62 07/15/18 06:00 O2 Sat by Pulse Oximetry (%) 97 07/15/18 08:46 Constitutional: Yes: Calm, Thin Eyes: Yes: WNL HENT: Yes: WNL Neck: Yes: WNL Cardiovascular: Yes: Regular Rate and Rhythm, S1, S2 Respiratory: Yes: Wheezes (FEW SCATTERED WHEEZES) Gastrointestinal: Yes: Normal Bowel Sounds, Soft Extremities: Yes: WNL Edema: No Labs: CBC, BMP 07/15/18 07:00 07/15/18 07:00 INR, PTT INR 1.32 (0.82-1.09) H 07/12/18 13:20 Problem List - Problems (1) Acute exacerbation of chronic obstructive pulmonary disease (COPD) Code(s): J44.1 - CHRONIC OBSTRUCTIVE PULMONARY DISEASE W (ACUTE) EXACERBATION (2) Bronchitis Code(s): J40 - BRONCHITIS, NOT SPECIFIED ACUTE OR CHRONIC (3) CAD (coronary artery disease) Code(s): I25.10 - ATHSCL HEART DISEASE OF [place] CORONARY ARTERY W/O ANG PCTRS Qualifiers: Coronary Disease-Associated Artery/Lesion type: [place] artery (4) COPD exacerbation Code(s): J44.1 - CHRONIC OBSTRUCTIVE PULMONARY DISEASE W (ACUTE) EXACERBATION (5) Difficulty breathing Code(s): R06.89 - OTHER ABNORMALITIES OF BREATHING (6) Pneumonia Code(s): J18.9 - PNEUMONIA, UNSPECIFIED ORGANISM Qualifiers: Pneumonia type: due to unspecified organism (7) Prostate ca Code(s): C61 - MALIGNANT NEOPLASM OF PROSTATE (8) Acute hypercapnic respiratory failure Code(s): J96.02 - ACUTE RESPIRATORY FAILURE WITH HYPERCAPNIA (9) Hyponatremia Code(s): E87.1 - HYPO-OSMOLALITY AND HYPONATREMIA (10) Anemia Code(s): D64.9 - ANEMIA, UNSPECIFIED Assessment/Plan IMP ACUTE HYPERCAPNEIC RESPIRATORY FAILURE COPD EXACERBATION PNEUMONIA VS ACUTE BRONCHITIS H/O RECURRENT PNEUMONIA PROSTATE CA HTN ASHD HLD GERD DEMENTIA HYPONATREMIA CORRECTED PULMONARY NODULE PLAN IV STEROIDS STAR TAPER IN AM INHALED BRONCHODILATORS ABX O2 MONITOR LYTES,NA IVF AMBULATORY O2 SAT ON RA PRIOR TO DISCHARGE TO DETERMINE IF PT IS A CANDIDATE FOR HOME O2 F/U CHEST CT OUTPATIENT [address] GAMEZ Problem List - Problems (1) Acute exacerbation of chronic obstructive pulmonary disease (COPD) Code(s): J44.1 - CHRONIC OBSTRUCTIVE PULMONARY DISEASE W (ACUTE) EXACERBATION (2) Bronchitis Code(s): J40 - BRONCHITIS, NOT SPECIFIED ACUTE OR CHRONIC (3) CAD (coronary artery disease) Code(s): I25.10 - ATHSCL HEART DISEASE OF [place] CORONARY ARTERY W/O ANG PCTRS Qualifiers: Coronary Disease-Associated Artery/Lesion type: [place] artery (4) COPD exacerbation Code(s): J44.1 - CHRONIC OBSTRUCTIVE PULMONARY DISEASE W (ACUTE) EXACERBATION (5) Difficulty breathing Code(s): R06.89 - OTHER ABNORMALITIES OF BREATHING (6) Pneumonia Code(s): J18.9 - PNEUMONIA, UNSPECIFIED ORGANISM Qualifiers: Pneumonia type: due to unspecified organism (7) Prostate ca Code(s): C61 - MALIGNANT NEOPLASM OF PROSTATE (8) Acute hypercapnic respiratory failure Code(s): J96.02 - ACUTE RESPIRATORY FAILURE WITH HYPERCAPNIA (9) Hyponatremia Code(s): E87.1 - HYPO-OSMOLALITY AND HYPONATREMIA (10) Anemia Code(s): D64.9 - ANEMIA, UNSPECIFIED
[2018-07-15] MEDS: FAMOTIDINE 20 MG TABLET PO SCH ×2 (10:25→21:35)
[2018-07-15] MEDS: ASPIRIN 81 MG CHEWABLE TABLETS PO SCH (10:25)
--- NOTE | 2018-07-15 18:34 | PN ---
Progress Note, Physician Chief Complaint: Pt is better Today had Few Juan Francisco episodes Pt will have 24 hour holter History of Present Illness: Pt SOB is better - Current Medication List Current Medications: Active Medications Acetaminophen (Tylenol -) 650 mg PO Q6H PRN PRN Reason: FEVER Last Admin: 07/14/18 21:53 Dose: 650 mg Albuterol/Ipratropium (Duoneb -) 1 amp NEB RQID [facility] Last Admin: 07/15/18 14:02 Dose: 1 amp Albuterol/Ipratropium (Duoneb -) 1 amp NEB Q6H PRN PRN Reason: SHORTNESS OF BREATH Aspirin (Asa -) 81 mg PO DAILY [facility] Last Admin: 07/15/18 10:25 Dose: 81 mg Atorvastatin Calcium (Lipitor -) 10 mg PO HS [facility] Last Admin: 07/14/18 21:51 Dose: 10 mg Brimonidine Tartrate (Alphagan 0.15% -) 1 drop OD TID [facility] Last Admin: 07/15/18 14:04 Dose: 1 drop Famotidine (Pepcid -) 20 mg PO BID [facility] Last Admin: 07/15/18 10:25 Dose: 20 mg Guaifenesin/Codeine Phosphate (Robitussin Ac -) 5 ml PO Q8H PRN PRN Reason: COUGH Last Admin: 07/14/18 21:54 Dose: 5 ml Heparin Sodium (Porcine) (Heparin -) 5,000 unit SQ Q8H-IV [facility] Last Admin: 07/15/18 10:24 Dose: 5,000 unit Cefepime HCl (Maxipime 1 Gm Premix Ivpb) 1 gm in 50 mls @ 100 mls/hr IVPB Q8H- IV [facility]; Protocol Last Admin: 07/15/18 10:25 Dose: 100 mls/hr Dextrose/Sodium Chloride (D5-1/2ns -) 1,000 mls @ 75 mls/hr IV ASDIR [facility] Last Admin: 07/13/18 23:15 Dose: 75 mls/hr Melatonin (Melatonin) 5 mg PO HS PRN PRN Reason: INSOMNIA Last Admin: 07/14/18 21:53 Dose: 5 mg Methylprednisolone Sodium Succinate (Solu-Medrol -) 40 mg IVPUSH Q8H-IV [facility] Last Admin: 07/15/18 10:25 Dose: 40 mg Montelukast Sodium (Singulair -) 10 mg PO HS [facility] Last Admin: 07/14/18 21:51 Dose: 10 mg Non-Formulary Medication (Dorzolamide Hcl/Pf [Dorzolamide 2% Eye Drop]) 10 ml OP TID [facility] Last Admin: 07/13/18 06:21 Dose: Not Given Non-Formulary Medication (Mirabegron [Myrbetriq]) 50 mg PO DAILY [facility] - Objective Vital Signs: Vital Signs Temperature 98.1 F 07/15/18 14:00 Pulse Rate 88 07/15/18 14:00 Respiratory Rate 17 07/15/18 14:00 Blood Pressure 118/58 L 07/15/18 14:00 O2 Sat by Pulse Oximetry (%) 100 07/15/18 14:00 Constitutional: Yes: Anxious Eyes: Yes: Conjunctiva Clear, EOM Intact HENT: Yes: Atraumatic, Normocephalic Neck: Yes: Supple, Trachea Midline Cardiovascular: Yes: Regular Rate and Rhythm, S1, S2 Respiratory: Yes: Regular, CTA Bilaterally Gastrointestinal: Yes: Normal Bowel Sounds, Soft Musculoskeletal: Yes: Joint Stiffness Edema: No Peripheral Pulses WNL: Yes Neurological: Yes: Alert, Oriented, Cran Nerves II-XII Intact Labs: CBC, BMP 07/15/18 07:00 07/15/18 07:00 INR, PTT INR 1.32 (0.82-1.09) H 07/12/18 13:20 Problem List - Problems (1) Acute hypercapnic respiratory failure Code(s): J96.02 - ACUTE RESPIRATORY FAILURE WITH HYPERCAPNIA (2) Hyponatremia Code(s): E87.1 - HYPO-OSMOLALITY AND HYPONATREMIA (3) Sepsis due to pneumonia Code(s): J18.9 - PNEUMONIA, UNSPECIFIED ORGANISM; A41.9 - SEPSIS, UNSPECIFIED ORGANISM (4) Anemia Code(s): D64.9 - ANEMIA, UNSPECIFIED (5) Bronchitis Code(s): J40 - BRONCHITIS, NOT SPECIFIED ACUTE OR CHRONIC (6) CAD (coronary artery disease) Code(s): I25.10 - ATHSCL HEART DISEASE OF [place] CORONARY ARTERY W/O ANG PCTRS Qualifiers: Coronary Disease-Associated Artery/Lesion type: [place] artery (7) COPD exacerbation Code(s): J44.1 - CHRONIC OBSTRUCTIVE PULMONARY DISEASE W (ACUTE) EXACERBATION (8) Fever Code(s): R50.9 - FEVER, UNSPECIFIED Qualifiers: Fever type: other (9) Gait difficulty Code(s): R26.9 - UNSPECIFIED ABNORMALITIES OF GAIT AND MOBILITY (10) Hyponatremia Code(s): E87.1 - HYPO-OSMOLALITY AND HYPONATREMIA (11) Myocardial infarct Code(s): I21.9 - ACUTE MYOCARDIAL INFARCTION, UNSPECIFIED Qualifiers: Myocardial infarction type: non-ST elevation myocardial infarction Qualified Code(s): I21.4 - Non-ST elevation (NSTEMI) myocardial infarction (12) Prostate ca Code(s): C61 - MALIGNANT NEOPLASM OF PROSTATE (13) Sepsis Code(s): A41.9 - SEPSIS, UNSPECIFIED ORGANISM Assessment/Plan (1) Acute hypercapnic respiratory failure Code(s): J96.02 - ACUTE RESPIRATORY FAILURE WITH HYPERCAPNIA (2) Hyponatremia Code(s): E87.1 - HYPO-OSMOLALITY AND HYPONATREMIA (3) Sepsis due to pneumonia Code(s): J18.9 - PNEUMONIA, UNSPECIFIED ORGANISM; A41.9 - SEPSIS, UNSPECIFIED ORGANISM (4) Anemia Code(s): D64.9 - ANEMIA, UNSPECIFIED (5) Bronchitis Code(s): J40 - BRONCHITIS, NOT SPECIFIED ACUTE OR CHRONIC (6) CAD (coronary artery disease) Code(s): I25.10 - ATHSCL HEART DISEASE OF [place] CORONARY ARTERY W/O ANG PCTRS Qualifiers: Coronary Disease-Associated Artery/Lesion type: [place] artery (7) COPD exacerbation Code(s): J44.1 - CHRONIC OBSTRUCTIVE PULMONARY DISEASE W (ACUTE) EXACERBATION (8) Fever Code(s): R50.9 - FEVER, UNSPECIFIED Qualifiers: Fever type: other Qualified Code(s): R50.81 - Fever presenting with conditions classified elsewhere (9) Gait difficulty Code(s): R26.9 - UNSPECIFIED ABNORMALITIES OF GAIT AND MOBILITY (10) Hyponatremia Code(s): E87.1 - HYPO-OSMOLALITY AND HYPONATREMIA (11) Myocardial infarct Code(s): I21.9 - ACUTE MYOCARDIAL INFARCTION, UNSPECIFIED Qualifiers: Myocardial infarction type: non-ST elevation myocardial infarction Qualified Code(s): I21.4 - Non-ST elevation (NSTEMI) myocardial infarction (12) Prostate ca Code(s): C61 - MALIGNANT NEOPLASM OF PROSTATE (13) Sepsis Code(s): A41.9 - SEPSIS, UNSPECIFIED ORGANISM Pt is having Juan Francisco episodes we will have cardiology Evaluate
[2018-07-15] MEDS: MONTELUKAST NA 10 MG TABLET PO SCH (21:35)
[2018-07-15] MEDS: ATORVASTATIN CA 10 MG TABLET (FP) PO SCH (21:35)
[2018-07-15] MEDS: guaiFENesin/CODEINE 10 ML UNIT-DOSE CUPS PO PRN (22:49)
[2018-07-15] MEDS: MELATONIN 5 MG TABLETS PO PRN (22:49)
[2018-07-16] MEDS: CEFEPIME HCL/D5W 1 GM/50 ML BAG IVPB SCH ×3 (01:52→18:29)
[2018-07-16] MEDS: methylPREDNISolone NA SUCC 40 MG/1 ML VIAL IVPUSH SCH ×3 (01:52→10:30)
[2018-07-16] MEDS: HEPARIN NA (PORCINE) 5,000 UNITS/ML 1ML VIAL SQ SCH ×4 (01:52→18:29)
[2018-07-16] MEDS: BRIMONIDINE TARTRATE 0.15% OPHTHALMIC 5 ML BOTTLE OD SCH ×3 (06:28→21:05)
[2018-07-16] MEDS ORDERED: PT OWN MED DRAWER 7, Y5N ONE ×2 (06:33→09:35)
[2018-07-16 08:05] LABS: BASO % 0.1 % (0-2.0); EOS % 0.2 % (0-4.5); HEMATOCRIT 30.5 % (35.4-49); HEMOGLOBIN 9.5 GM/dl (11.7-16.9); LYMPH % 7.2 % (8-40); MCH 24.2 pg (25.7-33.7); MCHC 31.1 g/dl (32.0-35.9); MEAN CELL VOLUME 77.8 fl (80-96); MEAN PLT VOLUME 7.9 fl (7.5-11.1); MONO % 3.3 % (3.8-10.2); NEUT % 89.2 % (42.8-82.8); PLATELET COUNT 525 K/MM3 (134-434); RBC 3.91 M/mm3 (4.00-5.60); RDW 15.9 % (11.9-15.9); WHITE BLOOD COUNT 15.1 K/mm3 (4.0-10.8)
[2018-07-16 08:10] LABS: ANION GAP 6 MMOL/L (8-16); BLOOD UREA NITROGEN 25 mg/dl (7-18); CALCIUM 8.8 mg/dl (8.4-10.2); CHLORIDE 101 mmol/L (98-107); CO2 29 mmol/L (22-28); CREATININE 0.8 mg/dl (0.6-1.3); GLUCOSE,RANDOM 131 mg/dl (74-106); SODIUM 136 mmol/L (136-145)
[2018-07-16] MEDS: ASPIRIN 81 MG CHEWABLE TABLETS PO SCH (09:40)
[2018-07-16] MEDS: ALBUTEROL SO4 2.5/IPRATROPIUM 0.5 INH SOL 3 ML VIAL.NEB. NEB SCH ×5 (09:40→21:04)
[2018-07-16] MEDS: FAMOTIDINE 20 MG TABLET PO SCH ×2 (09:40→21:04)
--- NOTE | 2018-07-16 10:22 | EKG ---
Test Reason : Blood Pressure : / mmHG Vent. Rate : 083 BPM Atrial Rate : 083 BPM P-R Int : 138 ms QRS Dur : 076 ms QT Int : 338 ms P-R-T Axes : 063 -01 053 degrees QTc Int : 397 ms NORMAL SINUS RHYTHM WITH SINUS ARRHYTHMIA CANNOT RULE OUT ANTERIOR INFARCT , AGE UNDETERMINED ABNORMAL ECG WHEN COMPARED WITH ECG OF 13-JUL-2018 07:51, T WAVE INVERSION NO LONGER EVIDENT IN ANTERIOR LEADS QT HAS SHORTENED Confirmed by ЮЛИЯ LILLY, ESTELA ([id number]) on 07/16/2018 10:22:14 AM Referred By: Confirmed By:ESTELA REDMAN MD
[2018-07-16] MEDS: predniSONE 20 MG TABLET (UD) PO SCH (14:00)
--- NOTE | 2018-07-16 14:03 | PN ---
Progress Note (short form) - Note Progress Note: PULMONARY CHART REVIEWED SOME DIFFICULTY AT NIGHT WITH COUGH/SOB OOB TO CHAIR/APPEARS STABLE VSS/AFEBRILE ANICTERIC DIMINISHED DIFFUSE BREATH SOUNDS S1S2 BS+ NO EDEMA LABS/MEDS/NOTES/IMAGES/MICRO REVIEWED IMP ACUTE HYPERCAPNEIC RESPIRATORY FAILURE COPD EXACERBATION PNEUMONIA VS ACUTE BRONCHITIS H/O RECURRENT PNEUMONIA PROSTATE CA HTN ASHD HLD GERD DEMENTIA HYPONATREMIA PLAN STEROIDS CHANGED TO ORAL INHALED BRONCHODILATORS ABX O2 AMBULATORY O2 SAT ON RA PRIOR TO DISCHARGE TO DETERMINE IF PT IS A CANDIDATE FOR HOME O2 Mt VICTORIA MD
--- NOTE | 2018-07-16 16:09 | PN ---
Progress Note, Physician History of Present Illness: improving still sob no complaints - Current Medication List Current Medications: Active Medications Acetaminophen (Tylenol -) 650 mg PO Q6H PRN PRN Reason: FEVER Last Admin: 07/14/18 21:53 Dose: 650 mg Albuterol/Ipratropium (Duoneb -) 1 amp NEB RQID [facility] Last Admin: 07/16/18 13:36 Dose: 1 amp Albuterol/Ipratropium (Duoneb -) 1 amp NEB Q6H PRN PRN Reason: SHORTNESS OF BREATH Aspirin (Asa -) 81 mg PO DAILY [facility] Last Admin: 07/16/18 09:40 Dose: 81 mg Atorvastatin Calcium (Lipitor -) 10 mg PO HS [facility] Last Admin: 07/15/18 21:35 Dose: 10 mg Brimonidine Tartrate (Alphagan 0.15% -) 1 drop OD TID [facility] Last Admin: 07/16/18 06:28 Dose: 1 drop Famotidine (Pepcid -) 20 mg PO BID [facility] Last Admin: 07/16/18 09:40 Dose: 20 mg Guaifenesin/Codeine Phosphate (Robitussin Ac -) 5 ml PO Q8H PRN PRN Reason: COUGH Last Admin: 07/15/18 22:49 Dose: 5 ml Heparin Sodium (Porcine) (Heparin -) 5,000 unit SQ Q8H-IV [facility] Last Admin: 07/16/18 10:30 Dose: 5,000 unit Cefepime HCl (Maxipime 1 Gm Premix Ivpb) 1 gm in 50 mls @ 100 mls/hr IVPB Q8H- IV [facility]; Protocol Last Admin: 07/16/18 10:30 Dose: 100 mls/hr Melatonin (Melatonin) 5 mg PO HS PRN PRN Reason: INSOMNIA Last Admin: 07/15/18 22:49 Dose: 5 mg Montelukast Sodium (Singulair -) 10 mg PO HS [facility] Last Admin: 07/15/18 21:35 Dose: 10 mg Non-Formulary Medication (Dorzolamide Hcl/Pf [Dorzolamide 2% Eye Drop]) 10 ml OP TID [facility] Last Admin: 07/13/18 06:21 Dose: Not Given Non-Formulary Medication (Mirabegron [Myrbetriq]) 50 mg PO DAILY [facility] Prednisone (Deltasone -) 40 mg PO DAILY [facility] - Objective Vital Signs: Vital Signs Temperature 98.0 F 07/16/18 14:00 Pulse Rate 88 07/16/18 14:00 Respiratory Rate 17 07/16/18 14:00 Blood Pressure 119/58 L 07/16/18 14:00 O2 Sat by Pulse Oximetry (%) 94 L 07/16/18 14:00 Constitutional: Yes: Calm, Mild Distress Cardiovascular: Yes: Regular Rate and Rhythm Respiratory: Yes: Regular, On Nasal O2, Poor Air Entry, Rhonchi Gastrointestinal: Yes: Normal Bowel Sounds, Soft Musculoskeletal: Yes: WNL Extremities: Yes: WNL Neurological: Yes: Alert, Oriented Psychiatric: Yes: Alert, Oriented Labs: CBC, BMP 07/16/18 07:00 07/16/18 07:00 INR, PTT INR 1.32 (0.82-1.09) H 07/12/18 13:20 Assessment/Plan Problem List - Problems (1) Acute hypercapnic respiratory failure Code(s): J96.02 - ACUTE RESPIRATORY FAILURE WITH HYPERCAPNIA (2) Hyponatremia Code(s): E87.1 - HYPO-OSMOLALITY AND HYPONATREMIA (3) Sepsis due to pneumonia Code(s): J18.9 - PNEUMONIA, UNSPECIFIED ORGANISM; A41.9 - SEPSIS, UNSPECIFIED ORGANISM (4) Anemia Code(s): D64.9 - ANEMIA, UNSPECIFIED (5) Bronchitis Code(s): J40 - BRONCHITIS, NOT SPECIFIED ACUTE OR CHRONIC (6) CAD (coronary artery disease) Code(s): I25.10 - ATHSCL HEART DISEASE OF [place] CORONARY ARTERY W/O ANG PCTRS Qualifiers: Coronary Disease-Associated Artery/Lesion type: [place] artery (7) COPD exacerbation Code(s): J44.1 - CHRONIC OBSTRUCTIVE PULMONARY DISEASE W (ACUTE) EXACERBATION (8) Fever Code(s): R50.9 - FEVER, UNSPECIFIED Qualifiers: Fever type: other (9) Gait difficulty Code(s): R26.9 - UNSPECIFIED ABNORMALITIES OF GAIT AND MOBILITY (10) Hyponatremia Code(s): E87.1 - HYPO-OSMOLALITY AND HYPONATREMIA (11) Myocardial infarct Code(s): I21.9 - ACUTE MYOCARDIAL INFARCTION, UNSPECIFIED Qualifiers: Myocardial infarction type: non-ST elevation myocardial infarction Qualified Code(s): I21.4 - Non-ST elevation (NSTEMI) myocardial infarction (12) Prostate ca Code(s): C61 - MALIGNANT NEOPLASM OF PROSTATE (13) Sepsis Code(s): A41.9 - SEPSIS, UNSPECIFIED ORGANISM plan will continue current mgmt continue abx watch for fever rest as per the team
--- NOTE | 2018-07-16 16:10 | PN ---
Progress Note, Physician History of Present Illness: much better today breathing better - Current Medication List Current Medications: Active Medications Acetaminophen (Tylenol -) 650 mg PO Q6H PRN PRN Reason: FEVER Last Admin: 07/14/18 21:53 Dose: 650 mg Albuterol/Ipratropium (Duoneb -) 1 amp NEB RQID [facility] Last Admin: 07/16/18 13:36 Dose: 1 amp Albuterol/Ipratropium (Duoneb -) 1 amp NEB Q6H PRN PRN Reason: SHORTNESS OF BREATH Aspirin (Asa -) 81 mg PO DAILY [facility] Last Admin: 07/16/18 09:40 Dose: 81 mg Atorvastatin Calcium (Lipitor -) 10 mg PO HS [facility] Last Admin: 07/15/18 21:35 Dose: 10 mg Brimonidine Tartrate (Alphagan 0.15% -) 1 drop OD TID [facility] Last Admin: 07/16/18 06:28 Dose: 1 drop Famotidine (Pepcid -) 20 mg PO BID [facility] Last Admin: 07/16/18 09:40 Dose: 20 mg Guaifenesin/Codeine Phosphate (Robitussin Ac -) 5 ml PO Q8H PRN PRN Reason: COUGH Last Admin: 07/15/18 22:49 Dose: 5 ml Heparin Sodium (Porcine) (Heparin -) 5,000 unit SQ Q8H-IV [facility] Last Admin: 07/16/18 10:30 Dose: 5,000 unit Cefepime HCl (Maxipime 1 Gm Premix Ivpb) 1 gm in 50 mls @ 100 mls/hr IVPB Q8H- IV [facility]; Protocol Last Admin: 07/16/18 10:30 Dose: 100 mls/hr Melatonin (Melatonin) 5 mg PO HS PRN PRN Reason: INSOMNIA Last Admin: 07/15/18 22:49 Dose: 5 mg Montelukast Sodium (Singulair -) 10 mg PO HS [facility] Last Admin: 07/15/18 21:35 Dose: 10 mg Non-Formulary Medication (Dorzolamide Hcl/Pf [Dorzolamide 2% Eye Drop]) 10 ml OP TID [facility] Last Admin: 07/13/18 06:21 Dose: Not Given Non-Formulary Medication (Mirabegron [Myrbetriq]) 50 mg PO DAILY [facility] Prednisone (Deltasone -) 40 mg PO DAILY [facility] - Objective Vital Signs: Vital Signs Temperature 98.0 F 07/16/18 14:00 Pulse Rate 88 07/16/18 14:00 Respiratory Rate 17 07/16/18 14:00 Blood Pressure 119/58 L 07/16/18 14:00 O2 Sat by Pulse Oximetry (%) 94 L 07/16/18 14:00 Constitutional: Yes: No Distress, Calm Cardiovascular: Yes: Regular Rate and Rhythm Respiratory: Yes: Regular, Rhonchi (minimal) Gastrointestinal: Yes: Normal Bowel Sounds Musculoskeletal: Yes: WNL Extremities: Yes: WNL Neurological: Yes: Alert, Oriented Psychiatric: Yes: Alert, Oriented Labs: CBC, BMP 07/16/18 07:00 07/16/18 07:00 INR, PTT INR 1.32 (0.82-1.09) H 07/12/18 13:20 Assessment/Plan Problem List - Problems (1) Acute hypercapnic respiratory failure Code(s): J96.02 - ACUTE RESPIRATORY FAILURE WITH HYPERCAPNIA (2) Hyponatremia Code(s): E87.1 - HYPO-OSMOLALITY AND HYPONATREMIA (3) Sepsis due to pneumonia Code(s): J18.9 - PNEUMONIA, UNSPECIFIED ORGANISM; A41.9 - SEPSIS, UNSPECIFIED ORGANISM (4) Anemia Code(s): D64.9 - ANEMIA, UNSPECIFIED (5) Bronchitis Code(s): J40 - BRONCHITIS, NOT SPECIFIED ACUTE OR CHRONIC (6) CAD (coronary artery disease) Code(s): I25.10 - ATHSCL HEART DISEASE OF [place] CORONARY ARTERY W/O ANG PCTRS Qualifiers: Coronary Disease-Associated Artery/Lesion type: [place] artery (7) COPD exacerbation Code(s): J44.1 - CHRONIC OBSTRUCTIVE PULMONARY DISEASE W (ACUTE) EXACERBATION (8) Fever Code(s): R50.9 - FEVER, UNSPECIFIED Qualifiers: Fever type: other (9) Gait difficulty Code(s): R26.9 - UNSPECIFIED ABNORMALITIES OF GAIT AND MOBILITY (10) Hyponatremia Code(s): E87.1 - HYPO-OSMOLALITY AND HYPONATREMIA (11) Myocardial infarct Code(s): I21.9 - ACUTE MYOCARDIAL INFARCTION, UNSPECIFIED Qualifiers: Myocardial infarction type: non-ST elevation myocardial infarction Qualified Code(s): I21.4 - Non-ST elevation (NSTEMI) myocardial infarction (12) Prostate ca Code(s): C61 - MALIGNANT NEOPLASM OF PROSTATE (13) Sepsis Code(s): A41.9 - SEPSIS, UNSPECIFIED ORGANISM plan will continue current mgmt continue abx watch for fever rest as per the team will deeescalate soon
--- NOTE | 2018-07-16 16:13 | PN ---
Progress Note, Physician History of Present Illness: continues to be sob still has effort breathing pul on case - Current Medication List Current Medications: Active Medications Acetaminophen (Tylenol -) 650 mg PO Q6H PRN PRN Reason: FEVER Last Admin: 07/14/18 21:53 Dose: 650 mg Albuterol/Ipratropium (Duoneb -) 1 amp NEB RQID [facility] Last Admin: 07/16/18 13:36 Dose: 1 amp Albuterol/Ipratropium (Duoneb -) 1 amp NEB Q6H PRN PRN Reason: SHORTNESS OF BREATH Aspirin (Asa -) 81 mg PO DAILY [facility] Last Admin: 07/16/18 09:40 Dose: 81 mg Atorvastatin Calcium (Lipitor -) 10 mg PO HS [facility] Last Admin: 07/15/18 21:35 Dose: 10 mg Brimonidine Tartrate (Alphagan 0.15% -) 1 drop OD TID [facility] Last Admin: 07/16/18 06:28 Dose: 1 drop Famotidine (Pepcid -) 20 mg PO BID [facility] Last Admin: 07/16/18 09:40 Dose: 20 mg Guaifenesin/Codeine Phosphate (Robitussin Ac -) 5 ml PO Q8H PRN PRN Reason: COUGH Last Admin: 07/15/18 22:49 Dose: 5 ml Heparin Sodium (Porcine) (Heparin -) 5,000 unit SQ Q8H-IV [facility] Last Admin: 07/16/18 10:30 Dose: 5,000 unit Cefepime HCl (Maxipime 1 Gm Premix Ivpb) 1 gm in 50 mls @ 100 mls/hr IVPB Q8H- IV [facility]; Protocol Last Admin: 07/16/18 10:30 Dose: 100 mls/hr Melatonin (Melatonin) 5 mg PO HS PRN PRN Reason: INSOMNIA Last Admin: 07/15/18 22:49 Dose: 5 mg Montelukast Sodium (Singulair -) 10 mg PO HS [facility] Last Admin: 07/15/18 21:35 Dose: 10 mg Non-Formulary Medication (Dorzolamide Hcl/Pf [Dorzolamide 2% Eye Drop]) 10 ml OP TID [facility] Last Admin: 07/13/18 06:21 Dose: Not Given Non-Formulary Medication (Mirabegron [Myrbetriq]) 50 mg PO DAILY [facility] Prednisone (Deltasone -) 40 mg PO DAILY [facility] - Objective Vital Signs: Vital Signs Temperature 98.0 F 07/16/18 14:00 Pulse Rate 88 07/16/18 14:00 Respiratory Rate 17 07/16/18 14:00 Blood Pressure 119/58 L 07/16/18 14:00 O2 Sat by Pulse Oximetry (%) 94 L 07/16/18 14:00 Constitutional: Yes: Calm, Moderate Distress Cardiovascular: Yes: Regular Rate and Rhythm Respiratory: Yes: On Nasal O2, Poor Air Entry, Rhonchi Gastrointestinal: Yes: Normal Bowel Sounds, Soft Musculoskeletal: Yes: WNL Extremities: Yes: WNL Neurological: Yes: Alert, Oriented Psychiatric: Yes: Alert, Oriented Labs: CBC, BMP 07/16/18 07:00 07/16/18 07:00 INR, PTT INR 1.32 (0.82-1.09) H 07/12/18 13:20 Assessment/Plan Problem List - Problems (1) Acute hypercapnic respiratory failure Code(s): J96.02 - ACUTE RESPIRATORY FAILURE WITH HYPERCAPNIA (2) Hyponatremia Code(s): E87.1 - HYPO-OSMOLALITY AND HYPONATREMIA (3) Sepsis due to pneumonia Code(s): J18.9 - PNEUMONIA, UNSPECIFIED ORGANISM; A41.9 - SEPSIS, UNSPECIFIED ORGANISM (4) Anemia Code(s): D64.9 - ANEMIA, UNSPECIFIED (5) Bronchitis Code(s): J40 - BRONCHITIS, NOT SPECIFIED ACUTE OR CHRONIC (6) CAD (coronary artery disease) Code(s): I25.10 - ATHSCL HEART DISEASE OF [place] CORONARY ARTERY W/O ANG PCTRS Qualifiers: Coronary Disease-Associated Artery/Lesion type: [place] artery (7) COPD exacerbation Code(s): J44.1 - CHRONIC OBSTRUCTIVE PULMONARY DISEASE W (ACUTE) EXACERBATION (8) Fever Code(s): R50.9 - FEVER, UNSPECIFIED Qualifiers: Fever type: other (9) Gait difficulty Code(s): R26.9 - UNSPECIFIED ABNORMALITIES OF GAIT AND MOBILITY (10) Hyponatremia Code(s): E87.1 - HYPO-OSMOLALITY AND HYPONATREMIA (11) Myocardial infarct Code(s): I21.9 - ACUTE MYOCARDIAL INFARCTION, UNSPECIFIED Qualifiers: Myocardial infarction type: non-ST elevation myocardial infarction Qualified Code(s): I21.4 - Non-ST elevation (NSTEMI) myocardial infarction (12) Prostate ca Code(s): C61 - MALIGNANT NEOPLASM OF PROSTATE (13) Sepsis Code(s): A41.9 - SEPSIS, UNSPECIFIED ORGANISM 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
--- NOTE | 2018-07-16 16:27 | CON.CARD ---
Cardiology Consult (text) - Consultation Consultation Note: CC: cough hpi: 83 yo m with h/o hyperlipidemia, hypertension, COPD, bronchitis, asthma, pneumonia, dementia, gastritis, right shoulder chronic pain, bph here with cough. No cp palps dizzy loc pnd orthopnea le edema. Being treated for copd, cough better. PMHx: Per HPI PSH: Prostatectomy SH: Former smoker, no etoh or illicits. FH: Brother with bypass surgery for CAD ROS: per hpi; no nvd +fever, no hematuria dysuria gib hong vision changes meds: Home Medications Medication Instructions Recorded Albuterol Sulfate Inhaler - 1 inh PO Q6H 05/08/18 [Ventolin Hfa Inhaler -] Aspirin [ASA -] 81 mg PO DAILY 05/08/18 Brimonidine Tartrate [Alphagan 1 drop OD TID 05/08/18 0.15% -] Dorzolamide HCl/Pf [Dorzolamide 2% 10 ml OP TID 05/08/18 Eye Drop] Mirabegron [Myrbetriq] 50 mg PO DAILY 05/08/18 Montelukast Na [Singulair -] 10 mg PO HS 05/08/18 Simvastatin [Zocor -] 20 mg PO HS 05/08/18 Amoxicillin/Potassium Clav 1 each PO BID 07/12/18 [Augmentin 875-125 Tablet] Vital Signs Period Temp Pulse Resp BP Sys/Mendoza Pulse Ox Last 24 Hr 97.5 F-98.7 F 79-98 17-19 116-122/51-61 94-100 NAD, calm JVD flat, neck supple mild wheeze bl, nl eff RRR nl s1, s2 no m/r/g + bs soft nt nd ext without e/c/c + dp/pt, no carotid bruits no jaundice, diaphoresis awake alert appropriate Laboratory Last Values WBC 15.1 K/mm3 (4.0-10.8) H 07/16/18 07:00 RBC 3.91 M/mm3 (4.00-5.60) L 07/16/18 07:00 Hgb 9.5 GM/dl (11.7-16.9) L 07/16/18 07:00 Hct 30.5 % (35.4-49) L 07/16/18 07:00 MCV 77.8 fl (80-96) L 07/16/18 07:00 MCH 24.2 pg (25.7-33.7) L 07/16/18 07:00 MCHC 31.1 g/dl (32.0-35.9) L 07/16/18 07:00 RDW 15.9 % (11.9-15.9) 07/16/18 07:00 Plt Count 525 K/MM3 (134-434) H 07/16/18 07:00 MPV 7.9 fl (7.5-11.1) 07/16/18 07:00 Absolute Neuts (auto) 13.4 K/mm3 07/16/18 07:00 Neutrophils % 89.2 % (42.8-82.8) H 07/16/18 07:00 Neutrophils % (Manual) 93.0 % (42.8-82.8) H* 07/15/18 07:00 Band Neutrophils % 2.0 % (0-10) 07/15/18 07:00 Lymphocytes % 7.2 % (8-40) L D 07/16/18 07:00 Lymphocytes % (Manual) 3.0 % (8-40) L D 07/15/18 07:00 Monocytes % 3.3 % (3.8-10.2) L 07/16/18 07:00 Monocytes % (Manual) 3 % (3.8-10.2) L 07/15/18 07:00 Eosinophils % 0.2 % (0-4.5) D 07/16/18 07:00 Eosinophils % (Manual) 4.0 % (0-4.5) 07/12/18 13:20 Basophils % 0.1 % (0-2.0) 07/16/18 07:00 Hypochromia 1+ 07/12/18 13:20 Platelet Estimate Increased 07/15/18 07:00 Anisocytosis Occasional 07/12/18 13:20 Microcytosis 1+ 07/12/18 13:20 PT with INR 14.7 SEC (10.2-13.0) H 07/12/18 13:20 INR 1.32 (0.82-1.09) H 07/12/18 13:20 PTT (Actin FS) 28.6 SECONDS (25.2-36.5) 07/12/18 13:20 VBG pH 7.35 (7.32-7.42) 07/12/18 14:30 POC VBG pCO2 51.7 mmHg (38-52) 07/12/18 14:30 POC VBG pO2 25.1 mmHg (28-48) L 07/12/18 14:30 Mixed VBG HCO3 27.9 meq/L (19-25) H 07/12/18 14:30 Sodium 136 mmol/L (136-145) 07/16/18 07:00 Potassium 5.0 mmol/L (3.5-5.1) 07/16/18 07:00 Chloride 101 mmol/L (98-107) 07/16/18 07:00 Carbon Dioxide 29 mmol/L (22-28) H 07/16/18 07:00 Anion Gap 6 MMOL/L (8-16) L 07/16/18 07:00 BUN 25 mg/dl (7-18) H 07/16/18 07:00 Creatinine 0.8 mg/dl (0.6-1.3) 07/16/18 07:00 Creat Clearance w eGFR > 60 (>60) 07/16/18 07:00 Random Glucose 131 mg/dl (74-106) H 07/16/18 07:00 Lactic Acid 1.8 mmol/L (0.4-2.0) 07/12/18 13:20 Calcium 8.8 mg/dl (8.4-10.2) 07/16/18 07:00 Magnesium 2.1 mg/dL (1.8-2.4) 07/12/18 17:00 Total Bilirubin 0.0 mg/dl (0.2-1.0) L 07/13/18 06:30 AST 15 U/L (10-42) 07/13/18 06:30 ALT 12 U/L (10-40) 07/13/18 06:30 Alkaline Phosphatase 44 U/L (32-92) D 07/13/18 06:30 Troponin I < 0.03 ng/ml (0.00-0.06) 07/13/18 06:30 C-Reactive Protein 12.2 MG/DL (0.00-0.3) H 07/12/18 17:00 B-Natriuretic Peptide 1368 pg/ml (5-450) H 07/13/18 06:30 Total Protein 6.3 g/dl (6.4-8.3) L 07/13/18 06:30 Albumin 2.8 g/dl (3.5-5.0) L 07/13/18 06:30 Urine Color Yellow 07/12/18 14:00 Urine Appearance Clear 07/12/18 14:00 Urine pH 7.0 (4.5-8) 07/12/18 14:00 Ur Specific [place] 1.020 (1.010-1.035) 07/12/18 14:00 Urine Protein Negative (NEGATIVE) 07/12/18 14:00 Urine Glucose (UA) Negative (NEGATIVE) 07/12/18 14:00 Urine Ketones Negative (NEGATIVE) 07/12/18 14:00 Urine Blood Negative (NEGATIVE) 07/12/18 14:00 Urine Nitrite Negative (NEGATIVE) 07/12/18 14:00 Urine Bilirubin Negative (NEGATIVE) 07/12/18 14:00 Urine Urobilinogen 0.2 (0.2-1.0) 07/12/18 14:00 Ur Leukocyte Esterase Negative (NEGATIVE) 07/12/18 14:00 Influenza A (Rapid) Negative 07/13/18 22:00 Influenza B (Rapid) Negative 07/13/18 22:00 echo 06/2018: nl lv/rv, mild-mod tr, nl rvsp ct chest: no chf, no infiltrates ecg: sr, nl intervals, no ischemic changes tele: sr, artifact-->no bradycardia, +brief NSVT a/p: 83 yo m with h/o hyperlipidemia, hypertension, COPD, bronchitis, asthma, pneumonia, dementia, gastritis, right shoulder chronic pain, bph here with cough. acute copd: -cont steroids per pulm/pmd -sxs improving hld: -cont statin htn: -controlled off meds bradycardia: -reviewed tele, there was no significant bradycardia, the guerline alarms were due to artifact, under-detecting qrs complexes nsvt: -brief run on tele -k, mg unremarkable -echo with nl lvef -monitor on tele for another day, if benign then no further testing needed at this time for asymptomatic NSVT with nl lvef.
--- NOTE | 2018-07-16 19:41 | PN ---
Progress Note, Physician Chief Complaint: Pt is better Today had Few Juan Francisco episodes Pt will have 24 hour holter cardiology seen History of Present Illness: Pt SOB is better No Arrhythmias today - Current Medication List Current Medications: Active Medications Acetaminophen (Tylenol -) 650 mg PO Q6H PRN PRN Reason: FEVER Last Admin: 07/14/18 21:53 Dose: 650 mg Albuterol/Ipratropium (Duoneb -) 1 amp NEB RQID [facility] Last Admin: 07/16/18 18:28 Dose: 1 amp Albuterol/Ipratropium (Duoneb -) 1 amp NEB Q6H PRN PRN Reason: SHORTNESS OF BREATH Aspirin (Asa -) 81 mg PO DAILY [facility] Last Admin: 07/16/18 09:40 Dose: 81 mg Atorvastatin Calcium (Lipitor -) 10 mg PO HS [facility] Last Admin: 07/15/18 21:35 Dose: 10 mg Brimonidine Tartrate (Alphagan 0.15% -) 1 drop OD TID [facility] Last Admin: 07/16/18 14:00 Dose: 1 drop Famotidine (Pepcid -) 20 mg PO BID [facility] Last Admin: 07/16/18 09:40 Dose: 20 mg Guaifenesin/Codeine Phosphate (Robitussin Ac -) 5 ml PO Q8H PRN PRN Reason: COUGH Last Admin: 07/15/18 22:49 Dose: 5 ml Heparin Sodium (Porcine) (Heparin -) 5,000 unit SQ Q8H-IV [facility] Last Admin: 18 18:29 Dose: 5,000 unit Cefepime HCl (Maxipime 1 Gm Premix Ivpb) 1 gm in 50 mls @ 100 mls/hr IVPB Q8H- IV [facility]; Protocol Last Admin: 07/16/18 18:29 Dose: 100 mls/hr Melatonin (Melatonin) 5 mg PO HS PRN PRN Reason: INSOMNIA Last Admin: 07/15/18 22:49 Dose: 5 mg Montelukast Sodium (Singulair -) 10 mg PO HS [facility] Last Admin: 07/15/18 21:35 Dose: 10 mg Non-Formulary Medication (Dorzolamide Hcl/Pf [Dorzolamide 2% Eye Drop]) 10 ml OP TID [facility] Last Admin: 07/13/18 06:21 Dose: Not Given Non-Formulary Medication (Mirabegron [Myrbetriq]) 50 mg PO DAILY [facility] Prednisone (Deltasone -) 40 mg PO DAILY [facility] Last Admin: 07/16/18 14:00 Dose: 40 mg - Objective Vital Signs: Vital Signs Temperature 98.0 F 07/16/18 14:00 Pulse Rate 88 07/16/18 14:00 Respiratory Rate 17 07/16/18 14:00 Blood Pressure 119/58 L 07/16/18 14:00 O2 Sat by Pulse Oximetry (%) 94 L 07/16/18 14:00 Constitutional: Yes: No Distress Eyes: Yes: Conjunctiva Clear, EOM Intact HENT: Yes: Atraumatic, Normocephalic Neck: Yes: Supple, Trachea Midline Cardiovascular: Yes: Regular Rate and Rhythm, S1, S2 Respiratory: Yes: Regular, CTA Bilaterally Gastrointestinal: Yes: Normal Bowel Sounds Musculoskeletal: Yes: Joint Stiffness Edema: No Labs: CBC, BMP 07/16/18 07:00 07/16/18 07:00 INR, PTT INR 1.32 (0.82-1.09) H 07/12/18 13:20 Problem List - Problems (1) Acute hypercapnic respiratory failure Code(s): J96.02 - ACUTE RESPIRATORY FAILURE WITH HYPERCAPNIA (2) Hyponatremia Code(s): E87.1 - HYPO-OSMOLALITY AND HYPONATREMIA (3) Sepsis due to pneumonia Code(s): J18.9 - PNEUMONIA, UNSPECIFIED ORGANISM; A41.9 - SEPSIS, UNSPECIFIED ORGANISM (4) Anemia Code(s): D64.9 - ANEMIA, UNSPECIFIED (5) Bronchitis Code(s): J40 - BRONCHITIS, NOT SPECIFIED ACUTE OR CHRONIC (6) CAD (coronary artery disease) Code(s): I25.10 - ATHSCL HEART DISEASE OF [place] CORONARY ARTERY W/O ANG PCTRS Qualifiers: Coronary Disease-Associated Artery/Lesion type: [place] artery (7) COPD exacerbation Code(s): J44.1 - CHRONIC OBSTRUCTIVE PULMONARY DISEASE W (ACUTE) EXACERBATION (8) Fever Code(s): R50.9 - FEVER, UNSPECIFIED Qualifiers: Fever type: other (9) Gait difficulty Code(s): R26.9 - UNSPECIFIED ABNORMALITIES OF GAIT AND MOBILITY (10) Hyponatremia Code(s): E87.1 - HYPO-OSMOLALITY AND HYPONATREMIA (11) Myocardial infarct Code(s): I21.9 - ACUTE MYOCARDIAL INFARCTION, UNSPECIFIED Qualifiers: Myocardial infarction type: non-ST elevation myocardial infarction Qualified Code(s): I21.4 - Non-ST elevation (NSTEMI) myocardial infarction (12) Prostate ca Code(s): C61 - MALIGNANT NEOPLASM OF PROSTATE (13) Sepsis Code(s): A41.9 - SEPSIS, UNSPECIFIED ORGANISM Assessment/Plan (1) Acute hypercapnic respiratory failure Code(s): J96.02 - ACUTE RESPIRATORY FAILURE WITH HYPERCAPNIA (2) Hyponatremia Code(s): E87.1 - HYPO-OSMOLALITY AND HYPONATREMIA (3) Sepsis due to pneumonia Code(s): J18.9 - PNEUMONIA, UNSPECIFIED ORGANISM; A41.9 - SEPSIS, UNSPECIFIED ORGANISM (4) Anemia Code(s): D64.9 - ANEMIA, UNSPECIFIED (5) Bronchitis Code(s): J40 - BRONCHITIS, NOT SPECIFIED ACUTE OR CHRONIC (6) CAD (coronary artery disease) Code(s): I25.10 - ATHSCL HEART DISEASE OF [place] CORONARY ARTERY W/O ANG PCTRS Qualifiers: Coronary Disease-Associated Artery/Lesion type: [place] artery (7) COPD exacerbation Code(s): J44.1 - CHRONIC OBSTRUCTIVE PULMONARY DISEASE W (ACUTE) EXACERBATION (8) Fever Code(s): R50.9 - FEVER, UNSPECIFIED Qualifiers: Fever type: other Qualified Code(s): R50.81 - Fever presenting with conditions classified elsewhere (9) Gait difficulty Code(s): R26.9 - UNSPECIFIED ABNORMALITIES OF GAIT AND MOBILITY (10) Hyponatremia Code(s): E87.1 - HYPO-OSMOLALITY AND HYPONATREMIA (11) Myocardial infarct Code(s): I21.9 - ACUTE MYOCARDIAL INFARCTION, UNSPECIFIED Qualifiers: Myocardial infarction type: non-ST elevation myocardial infarction Qualified Code(s): I21.4 - Non-ST elevation (NSTEMI) myocardial infarction (12) Prostate ca Code(s): C61 - MALIGNANT NEOPLASM OF PROSTATE (13) Sepsis Code(s): A41.9 - SEPSIS, UNSPECIFIED ORGANISM Pt is having Juan Francisco episodes we will have cardiology Evaluate
[2018-07-16] MEDS: ATORVASTATIN CA 10 MG TABLET (FP) PO SCH (21:05)
[2018-07-16] MEDS: MONTELUKAST NA 10 MG TABLET PO SCH (21:05)
[2018-07-16] MEDS: MELATONIN 5 MG TABLETS PO PRN (21:37)
[2018-07-16] MEDS: guaiFENesin/CODEINE 10 ML UNIT-DOSE CUPS PO PRN (21:37)
[2018-07-17] MEDS: HEPARIN NA (PORCINE) 5,000 UNITS/ML 1ML VIAL SQ SCH ×2 (01:20→09:26)
[2018-07-17] MEDS: CEFEPIME HCL/D5W 1 GM/50 ML BAG IVPB SCH ×2 (01:20→09:27)
[2018-07-17] MEDS: BRIMONIDINE TARTRATE 0.15% OPHTHALMIC 5 ML BOTTLE OD SCH ×2 (06:23→14:37)
--- NOTE | 2018-07-17 07:16 | PN ---
Progress Note, Physician History of Present Illness: pulmonary alert,oob-chair,-resp distress - Current Medication List Current Medications: Active Medications Acetaminophen (Tylenol -) 650 mg PO Q6H PRN PRN Reason: FEVER Last Admin: 07/14/18 21:53 Dose: 650 mg Albuterol/Ipratropium (Duoneb -) 1 amp NEB RQID [facility] Last Admin: 07/16/18 21:04 Dose: 1 amp Albuterol/Ipratropium (Duoneb -) 1 amp NEB Q6H PRN PRN Reason: SHORTNESS OF BREATH Aspirin (Asa -) 81 mg PO DAILY [facility] Last Admin: 07/16/18 09:40 Dose: 81 mg Atorvastatin Calcium (Lipitor -) 10 mg PO HS [facility] Last Admin: 07/16/18 21:05 Dose: 10 mg Brimonidine Tartrate (Alphagan 0.15% -) 1 drop OD TID [facility] Last Admin: 07/17/18 06:23 Dose: 1 drop Famotidine (Pepcid -) 20 mg PO BID [facility] Last Admin: 07/16/18 21:04 Dose: 20 mg Heparin Sodium (Porcine) (Heparin -) 5,000 unit SQ Q8H-IV [facility] Last Admin: 07/17/18 01:20 Dose: 5,000 unit Cefepime HCl (Maxipime 1 Gm Premix Ivpb) 1 gm in 50 mls @ 100 mls/hr IVPB Q8H- IV [facility]; Protocol Last Admin: 07/17/18 01:20 Dose: 100 mls/hr Melatonin (Melatonin) 5 mg PO HS PRN PRN Reason: INSOMNIA Last Admin: 07/16/18 21:37 Dose: 5 mg Montelukast Sodium (Singulair -) 10 mg PO HS [facility] Last Admin: 07/16/18 21:05 Dose: 10 mg Non-Formulary Medication (Dorzolamide Hcl/Pf [Dorzolamide 2% Eye Drop]) 10 ml OP TID [facility] Last Admin: 07/13/18 06:21 Dose: Not Given Non-Formulary Medication (Mirabegron [Myrbetriq]) 50 mg PO DAILY [facility] Prednisone (Deltasone -) 40 mg PO DAILY [facility] Last Admin: 07/16/18 14:00 Dose: 40 mg - Objective Vital Signs: Vital Signs Temperature 97.5 F L 07/17/18 05:40 Pulse Rate 79 07/17/18 05:40 Respiratory Rate 19 07/17/18 05:40 Blood Pressure 135/56 L 07/17/18 05:40 O2 Sat by Pulse Oximetry (%) 96 07/17/18 02:00 Constitutional: Yes: Well Nourished, Calm Eyes: Yes: WNL HENT: Yes: WNL Neck: Yes: WNL Cardiovascular: Yes: Regular Rate and Rhythm, S1, S2 Respiratory: Yes: Diminished Gastrointestinal: Yes: Normal Bowel Sounds, Soft Extremities: Yes: WNL Edema: No Labs: INR, PTT Problem List - Problems (1) Acute exacerbation of chronic obstructive pulmonary disease (COPD) Code(s): J44.1 - CHRONIC OBSTRUCTIVE PULMONARY DISEASE W (ACUTE) EXACERBATION (2) Bronchitis Code(s): J40 - BRONCHITIS, NOT SPECIFIED ACUTE OR CHRONIC (3) CAD (coronary artery disease) Code(s): I25.10 - ATHSCL HEART DISEASE OF [place] CORONARY ARTERY W/O ANG PCTRS Qualifiers: Coronary Disease-Associated Artery/Lesion type: [place] artery (4) COPD exacerbation Code(s): J44.1 - CHRONIC OBSTRUCTIVE PULMONARY DISEASE W (ACUTE) EXACERBATION (5) Difficulty breathing Code(s): R06.89 - OTHER ABNORMALITIES OF BREATHING (6) Pneumonia Code(s): J18.9 - PNEUMONIA, UNSPECIFIED ORGANISM Qualifiers: Pneumonia type: due to unspecified organism (7) Prostate ca Code(s): C61 - MALIGNANT NEOPLASM OF PROSTATE (8) Acute hypercapnic respiratory failure Code(s): J96.02 - ACUTE RESPIRATORY FAILURE WITH HYPERCAPNIA (9) Hyponatremia Code(s): E87.1 - HYPO-OSMOLALITY AND HYPONATREMIA (10) Anemia Code(s): D64.9 - ANEMIA, UNSPECIFIED Assessment/Plan IMP ACUTE HYPERCAPNEIC RESPIRATORY FAILURE IMPROVED COPD EXACERBATION IMPROVED PNEUMONIA VS ACUTE BRONCHITIS H/O RECURRENT PNEUMONIA PROSTATE CA HTN ASHD HLD GERD DEMENTIA HYPONATREMIA CORRECTED PULMONARY NODULE PLAN STEROID TAPER INHALED BRONCHODILATORS ABX O2 IVF AMBULATORY O2 SAT ON RA PRIOR TO DISCHARGE TO DETERMINE IF PT IS A CANDIDATE FOR HOME O2 F/U CHEST CT OUTPATIENT [address] GAMEZ Problem List - Problems (1) Acute exacerbation of chronic obstructive pulmonary disease (COPD) Code(s): J44.1 - CHRONIC OBSTRUCTIVE PULMONARY DISEASE W (ACUTE) EXACERBATION (2) Bronchitis Code(s): J40 - BRONCHITIS, NOT SPECIFIED ACUTE OR CHRONIC (3) CAD (coronary artery disease) Code(s): I25.10 - ATHSCL HEART DISEASE OF [place] CORONARY ARTERY W/O ANG PCTRS Qualifiers: Coronary Disease-Associated Artery/Lesion type: [place] artery (4) COPD exacerbation Code(s): J44.1 - CHRONIC OBSTRUCTIVE PULMONARY DISEASE W (ACUTE) EXACERBATION (5) Difficulty breathing Code(s): R06.89 - OTHER ABNORMALITIES OF BREATHING (6) Pneumonia Code(s): J18.9 - PNEUMONIA, UNSPECIFIED ORGANISM Qualifiers: Pneumonia type: due to unspecified organism (7) Prostate ca Code(s): C61 - MALIGNANT NEOPLASM OF PROSTATE (8) Acute hypercapnic respiratory failure Code(s): J96.02 - ACUTE RESPIRATORY FAILURE WITH HYPERCAPNIA (9) Hyponatremia Code(s): E87.1 - HYPO-OSMOLALITY AND HYPONATREMIA (10) Anemia Code(s): D64.9 - ANEMIA, UNSPECIFIED
[2018-07-17 07:48] LABS: BASO % 0.6 % (0-2.0); EOS % 0.4 % (0-4.5); HEMATOCRIT 32.1 % (35.4-49); HEMOGLOBIN 9.8 GM/dl (11.7-16.9); LYMPH % 15.3 % (8-40); MCH 23.6 pg (25.7-33.7); MCHC 30.5 g/dl (32.0-35.9); MEAN CELL VOLUME 77.5 fl (80-96); NEUT % 76.7 % (42.8-82.8); PLATELET COUNT 553 K/MM3 (134-434); RBC 4.14 M/mm3 (4.00-5.60); RDW 15.7 % (11.9-15.9); WHITE BLOOD COUNT 20.4 K/mm3 (4.0-10.8)
[2018-07-17 07:53] LABS: ANION GAP 6 MMOL/L (8-16); BLOOD UREA NITROGEN 27 mg/dl (7-18); CALCIUM 8.9 mg/dl (8.4-10.2); CHLORIDE 102 mmol/L (98-107); CO2 31 mmol/L (22-28); CREATININE 0.8 mg/dl (0.6-1.3); GLUCOSE,RANDOM 80 mg/dl (74-106); POTASSIUM 4.5 mmol/L (3.5-5.1); SODIUM 139 mmol/L (136-145)
[2018-07-17] MEDS: ALBUTEROL SO4 2.5/IPRATROPIUM 0.5 INH SOL 3 ML VIAL.NEB. NEB SCH ×2 (08:40→12:50)
[2018-07-17] MEDS ORDERED: PT OWN MED DRAWER 7, Y5N ONE ×2 (09:22→14:34)
[2018-07-17] MEDS: ASPIRIN 81 MG CHEWABLE TABLETS PO SCH (09:26)
[2018-07-17] MEDS: predniSONE 20 MG TABLET (UD) PO SCH (09:26)
[2018-07-17] MEDS: FAMOTIDINE 20 MG TABLET PO SCH (09:26)
--- NOTE | 2018-07-17 10:08 | PN ---
Progress Note, Physician - Current Medication List Current Medications: Active Medications Acetaminophen (Tylenol -) 650 mg PO Q6H PRN PRN Reason: FEVER Last Admin: 07/14/18 21:53 Dose: 650 mg Albuterol/Ipratropium (Duoneb -) 1 amp NEB RQID [facility] Last Admin: 07/17/18 08:40 Dose: 1 amp Albuterol/Ipratropium (Duoneb -) 1 amp NEB Q6H PRN PRN Reason: SHORTNESS OF BREATH Aspirin (Asa -) 81 mg PO DAILY [facility] Last Admin: 07/17/18 09:26 Dose: 81 mg Atorvastatin Calcium (Lipitor -) 10 mg PO HS [facility] Last Admin: 07/16/18 21:05 Dose: 10 mg Brimonidine Tartrate (Alphagan 0.15% -) 1 drop OD TID [facility] Last Admin: 07/17/18 06:23 Dose: 1 drop Famotidine (Pepcid -) 20 mg PO BID [facility] Last Admin: 07/17/18 09:26 Dose: 20 mg Heparin Sodium (Porcine) (Heparin -) 5,000 unit SQ Q8H-IV [facility] Last Admin: 07/17/18 09:26 Dose: 5,000 unit Cefepime HCl (Maxipime 1 Gm Premix Ivpb) 1 gm in 50 mls @ 100 mls/hr IVPB Q8H- IV [facility]; Protocol Last Admin: 07/17/18 09:27 Dose: 100 mls/hr Melatonin (Melatonin) 5 mg PO HS PRN PRN Reason: INSOMNIA Last Admin: 07/16/18 21:37 Dose: 5 mg Montelukast Sodium (Singulair -) 10 mg PO HS [facility] Last Admin: 07/16/18 21:05 Dose: 10 mg Non-Formulary Medication (Dorzolamide Hcl/Pf [Dorzolamide 2% Eye Drop]) 10 ml OP TID [facility] Last Admin: 07/13/18 06:21 Dose: Not Given Non-Formulary Medication (Mirabegron [Myrbetriq]) 50 mg PO DAILY [facility] Prednisone (Deltasone -) 40 mg PO DAILY [facility] Last Admin: 07/17/18 09:26 Dose: 40 mg - Objective Vital Signs: Vital Signs Temperature 97.5 F L 07/17/18 05:40 Pulse Rate 79 07/17/18 05:40 Respiratory Rate 19 07/17/18 07:22 Blood Pressure 135/56 L 07/17/18 05:40 O2 Sat by Pulse Oximetry (%) 96 07/17/18 02:00 Labs: CBC, BMP 07/17/18 07:00 07/17/18 07:00 INR, PTT INR 1.32 (0.82-1.09) H 07/12/18 13:20 Problem List - Problems (1) Acute hypercapnic respiratory failure Code(s): J96.02 - ACUTE RESPIRATORY FAILURE WITH HYPERCAPNIA (2) Hyponatremia Code(s): E87.1 - HYPO-OSMOLALITY AND HYPONATREMIA (3) Sepsis due to pneumonia Code(s): J18.9 - PNEUMONIA, UNSPECIFIED ORGANISM; A41.9 - SEPSIS, UNSPECIFIED ORGANISM (4) Anemia Code(s): D64.9 - ANEMIA, UNSPECIFIED (5) Bronchitis Code(s): J40 - BRONCHITIS, NOT SPECIFIED ACUTE OR CHRONIC (6) CAD (coronary artery disease) Code(s): I25.10 - ATHSCL HEART DISEASE OF [place] CORONARY ARTERY W/O ANG PCTRS Qualifiers: Coronary Disease-Associated Artery/Lesion type: [place] artery (7) COPD exacerbation Code(s): J44.1 - CHRONIC OBSTRUCTIVE PULMONARY DISEASE W (ACUTE) EXACERBATION (8) Fever Code(s): R50.9 - FEVER, UNSPECIFIED Qualifiers: Fever type: other (9) Gait difficulty Code(s): R26.9 - UNSPECIFIED ABNORMALITIES OF GAIT AND MOBILITY (10) Hyponatremia Code(s): E87.1 - HYPO-OSMOLALITY AND HYPONATREMIA (11) Myocardial infarct Code(s): I21.9 - ACUTE MYOCARDIAL INFARCTION, UNSPECIFIED Qualifiers: Myocardial infarction type: non-ST elevation myocardial infarction Qualified Code(s): I21.4 - Non-ST elevation (NSTEMI) myocardial infarction (12) Prostate ca Code(s): C61 - MALIGNANT NEOPLASM OF PROSTATE (13) Sepsis Code(s): A41.9 - SEPSIS, UNSPECIFIED ORGANISM
[2018-07-17 11:44] VITALS: TEMP 98.5
[2018-07-17 14:25] VITALS: BP 115/77; PULSE 99
--- NOTE | 2018-07-17 15:15 | DS ---
Physical Examination Vital Signs: Vital Signs Temperature 98.5 F 07/17/18 14:00 Pulse Rate 99 H 07/17/18 14:00 Respiratory Rate 18 07/17/18 14:00 Blood Pressure 115/77 07/17/18 14:00 O2 Sat by Pulse Oximetry (%) 98 07/17/18 10:00 Constitutional: Yes: Anxious Eyes: Yes: Conjunctiva Clear, EOM Intact HENT: Yes: Atraumatic, Normocephalic Neck: Yes: Supple, Trachea Midline Cardiovascular: Yes: Regular Rate and Rhythm, S1, S2 Respiratory: Yes: Regular, CTA Bilaterally Gastrointestinal: Yes: Normal Bowel Sounds, Soft Edema: No Labs: CBC, BMP 07/17/18 07:00 07/17/18 07:00 Discharge Summary Reason For Visit: Acute Hpercapneic Respiratory failure Current Active Problems Acute hypercapnic respiratory failure (Acute) Hyponatremia (Acute) Sepsis due to pneumonia (Acute) Other Procedures: Pt had COPD excacerbation. and Hypercapnic respiratory failure. Pulmonary and Cardiology seen also. ID Rx with Cefapime Condition: Good - Instructions Referrals: Clifford Winslow MD [Primary Care Provider] - - Home Medications Comprehensive Discharge Medication List: Ambulatory Orders Albuterol Sulfate Inhaler - [Ventolin Hfa Inhaler -] 1 inh PO Q6H 05/08/18 Aspirin [ASA -] 81 mg PO DAILY 05/08/18 Brimonidine Tartrate [Alphagan 0.15% -] 1 drop OD TID 05/08/18 Dorzolamide HCl/Pf [Dorzolamide 2% Eye Drop] 10 ml OP TID 05/08/18 Mirabegron [Myrbetriq] 50 mg PO DAILY 05/08/18 Montelukast Na [Singulair -] 10 mg PO HS 05/08/18 Simvastatin [Zocor -] 20 mg PO HS 05/08/18 Amoxicillin/Potassium Clav [Augmentin 875-125 Tablet] 1 each PO BID 07/12/18
== END 2018-07-17 16:46 | disposition home or self-care (01) | DRG 871 ==
LOC: FER 12:51 → FM/S 13:15
PROVIDERS: ADMIT Internal Medicine; ATTEND Internal Medicine
DX: A41.9 Sepsis, unspecified organism (principal); J18.9 Pneumonia, unspecified organism; J96.02 Acute respiratory failure with hypercapnia; J44.1 Chronic obstructive pulmonary disease with (acute) exacerbation; J44.0 Chronic obstructive pulmonary disease with (acute) lower respiratory infection; E87.1 Hypo-osmolality and hyponatremia; Z85.46 Personal history of malignant neoplasm of prostate; J20.9 Acute bronchitis, unspecified; I25.10 Atherosclerotic heart disease of native coronary artery without angina pectoris; I25.2 Old myocardial infarction; K59.00 Constipation, unspecified; Z90.79 Acquired absence of other genital organ(s); E78.5 Hyperlipidemia, unspecified; I10 Essential (primary) hypertension; Z87.891 Personal history of nicotine dependence; M81.0 Age-related osteoporosis without current pathological fracture; F03.90 Unspecified dementia, unspecified severity, without behavioral disturbance, psychotic disturbance, mood disturbance, and anxiety; D64.9 Anemia, unspecified; K44.9 Diaphragmatic hernia without obstruction or gangrene; R91.1 Solitary pulmonary nodule; G89.29 Other chronic pain; M25.511 Pain in right shoulder
CPT/HCPCS: 36415; 71045-TC-FY; 71250-TC; 80048; 80053; 81003; 82803; 83605; 83735; 83880; 84484; 85025; 85610; 85730; 86140; 87040; 87086; 87804; 87899; 93005; 93306-TC; 94640; 97116-GP; 97161-GP; 99285-25; J0131; J1644

== ENCOUNTER 2019-02-03 11:08 | Emergency (ER) | payer OTHER ==
--- NOTE | 2019-02-03 11:14 | PDOC ---
History of Present Illness - General Chief Complaint: Weakness Stated Complaint: WEAK AND SHORT OF BREATH 2 DAYS History Source: Patient, Family - History of Present Illness Initial Comments: 02/03/19 11:37 83 year-old male with a PMH significant for HTN, HLD, CAD, asthma, COPD, recurrent pneumonia, GERD, chronic back pain/arthritis, prostate cancer s/p prostatectomy, and dementia, with previous admissions for COPD exacerbation +/- pneumonia, last in 06/2018, presenting today with productive cough with yellow sputum, shortness of breath and generalized weakness x 2- 3 days. Associated with subjective fevers and chills, no temperature taken. This morning, he was unable to get up from bed 2/2 weakness in his body and legs. +decreased appetite. Denies chest pain, palpitation, dizziness, N, V, D, abdominal pain, bladder and bowel problems, leg swelling, rash. No sick contacts or travel. No new changes in medications. No suspicious food intake Allergies: None Past Medical History: as documented in EMR/HPI Social history: Lives with family. No tobacco, ETOH or drug use. Meds: as documented in EMR PMD: Dr Winslow 02/03/19 14:35 Past History - Past Medical History Allergies/Adverse Reactions: Allergies Allergy/AdvReac Type Severity Reaction Status Date / Time No Known Allergies Allergy Verified 02/03/19 11:10 Home Medications: Ambulatory Orders Albuterol Sulfate Inhaler - [Ventolin Hfa Inhaler -] 1 inh PO Q6H 05/08/18 Aspirin [ASA -] 81 mg PO DAILY 05/08/18 Brimonidine Tartrate [Alphagan 0.15% -] 1 drop OD TID 05/08/18 Dorzolamide HCl/Pf [Dorzolamide 2% Eye Drop] 10 ml OP TID 05/08/18 Mirabegron [Myrbetriq] 50 mg PO DAILY 05/08/18 Montelukast Na [Singulair -] 10 mg PO HS 05/08/18 Simvastatin [Zocor -] 20 mg PO HS 05/08/18 Albuterol Sulfate Inhaler - [Ventolin HFA Inhaler -] 1 - 2 inh PO Q4H PRN #1 inhaler 02/03/19 Amox-Tr/K Cl [Augmentin - 875Mg Tablet] 1 tab PO BID 10 Days #20 tablet Azithromycin 250 mg PO DAILY #4 tablet 02/03/19 Budesonide/Formeterol Fumarate [SYMBICORT 160/4.5mcg -] 2 puff IN BID 02/03/19 Prednisone [Prednisone 50 MG TABLETS] 50 mg PO DAILY #4 tablet 02/03/19 Anemia: No Asthma: Yes Cancer: Yes (prostate cancer, staging unknown) CVA: No COPD: Yes CHF: No Dementia: Yes Diabetes: No GI Disorders: No Disorders: Yes ([place] PROSTATE) HTN: Yes Hypercholesterolemia: Yes Liver Disease: No Seizures: No Thyroid Disease: No - Immunization History Td Vaccination: Yes TDAP Vaccination: Yes Immunization Up to Date: Yes - Suicide/Smoking/Psychosocial Hx Smoking Status: No Smoking History: Former smoker Have you smoked in the past 12 months: No Number of Cigarettes Smoked Daily: 0 If you are a former smoker, when did you quit?: 30 years ago Hx Alcohol Use: No Drug/Substance Use Hx: No Substance Use Type: None Hx Substance Use Treatment: No Review of Systems - Review of Systems Able to Perform ROS?: Yes Comments:: 02/03/19 11:37 Review of systems Constitutional: + fevers or chills. +general weakness. HEENT: no headache or dizziness. No congestion. No visual/hearing disturbances. CVS: no cp or syncope. Resp: +shortness of breath, +cough Gastrointestinal: no abdominal pain, nausea or vomiting. Genitourinary: no urinary sx, hematuria. MUSCULOSKELETAL: No joint pain and swelling. No neck or back pain. SKIN: no redness or skin changes, no discharge, no rash. No wounds. Hematologic: no easy bruising/bleeding. NEUROLOGIC: No headache, dizziness, LOC or altered mental status. No focal weakness, numbness or tingling. Psych: no anxiety or depression Allergic/Immunologic: no allergies All other systems reviewed and negative, or as documented in HPI. 02/03/19 11:38 *Physical Exam - Physical Exam Comments: 02/03/19 11:38 Physical exam: General: awake and alert, mild respiratory distress; frail appearing, malaised HEENT: NCAT, PERRL, EOMI, clear conjunctiva, anicteric, dry mucus membranes, clear oropharynx, no oral lesions.. Neck: neck supple, FROM Resp: mild respiratory distress, tachypneic. +bilateral expiratory wheezing, + inspiratory rhonchi bilaterally CVS: +tachycardic, no murmurs, 2+ peripheral pulses throughout, no peripheral edema Abdomen: soft, NTND, no peritoneal signs. Back: nontender, normal inspection and ROM MSK: no edema, HERNANDEZ x4, ROM intact. No clubbing or cyanosis. normal bulk and tone. Extrem: no calf tenderness Neuro: alert, no focal neuro deficits. Psych: calm and cooperative Skin: very warm to touch and well perfused, cap refill <2 sec, normal color Heart Score/ECG Review #1 ECG reviewed & interpreted by me at: 11:35 General ECG Interpretation: Sinus Rhythm, Normal Intervals Compared to previous ECG there are: No significant change 02/03/19 11:40 EKG sinus tachycardia at 101 bpm, no interval abnormalities, narrow QRS, ST and T wave segments and morphology normal. Nonspecific T wave abnormalities ED Treatment Course - LABORATORY CBC & Chemistry Diagram: 02/03/19 11:48 02/03/19 11:48 Medical Decision Making - Medical Decision Making 02/03/19 11:39 See HPI for details. Prior notes reviewed, including admissions, discharges and consultations. Vital signs reviewed, +LGF and tachycardia in low 100s. no hypoxia. placed on nasal cannula for comfort DDx SOB: ACS, PE, PTX, CHF, COPD exac, pulmonary edema, pleurisy, pneumonia, viral syndrome. effusion. anemia, electrolyte/metabolic derangements. laboratory results and imaging reviewed, basic labs and lytes wnl, notable for normal WBC ct, no anemia. no differential shift. lactic normal VBG normal, no CO2 elevation or acidosis/alkalosis. CXR_no acute chest pathology, nodular finding in left middle lung field; no effusion or edema Cardiac panel_neg trop EKG sinus tachycardia at 101 bpm, no interval abnormalities, narrow QRS, ST and T wave segments and morphology normal. Nonspecific T wave abnormalities ED course -interventions: duonebs x3, steroids. IVF hydration and cultures, sputum and blood cultures abx ceftriaxone and azithromycin x1 dose here comorbidities and respiratory illness, high risk for recurrent pna/infection. could still be viral will cover with oral augmentin and azithromycin for typical/atypical coverage normal sats, no respiratory distress with treatment repeat VS normal, no fever, nontoxic, no systemic findings. titrated to room air rx steroids x 4 more days albuterol inhaler use and supportive respiratory precautions, instructions provided trial of ambulation with walker assistance, tolerated. comfortable, no desats or respiratory distress and stable with gait. Pt to be discharged in stable condition. Patient and family made aware of clinical impression, treatment recommendations and disposition plan, return precautions discussed (including but not limited to new or persistent/worsening symptoms, pain, fevers, or signs of infection, chest pain, respiratory distress , inability to tolerate oral intake, dehydration, syncope, or neurologic changes ). Follow up with PMD Dr Brasher as recommended, follow up information provided, take medications as instructed for duration of time. continue with supportive care, avoid triggers and precipitants. All questions answered to patient's satisfaction and expressed understanding and comfort with this. At the time of discharge, the patient is alert, clinically improved, tolerating po and verbalizes understanding of instructions, satisfied with the care received and felt comfortable with the plan. Patient does not suffer from an acute life- threatening medical condition at this time and is safe for outpatient follow- up. 02/03/19 14:15 02/03/19 14:55 *DC/Admit/Observation/Transfer Diagnosis at time of Disposition: COPD with acute exacerbation, Bronchitis - Discharge Dispostion Disposition: HOME Condition at time of disposition: Improved Decision to Admit order: No - Prescriptions Prescriptions: Albuterol Sulfate Inhaler - [Ventolin HFA Inhaler -] 1 - 2 inh PO Q4H PRN #1 inhaler PRN Reason: cough, shortness of breath Amox-Tr/K Cl [Augmentin - 875Mg Tablet] 1 tab PO BID 10 Days #20 tablet Azithromycin 250 mg PO DAILY #4 tablet Prednisone [Prednisone 50 MG TABLETS] 50 mg PO DAILY #4 tablet - Referrals Referrals: Clifford Winslow MD [Staff Physician] - - Patient Instructions Printed Discharge Instructions: DI for Chronic Obstructive Pulmonary Disease, DI for Pneumonia -- Adult, DI for Acute Bronchitis Additional Instructions: 1) Please follow-up with your primary care doctor Dr Winslow in the next 1-2 days. Please call tomorrow for for any urgent issues. 2) You were given a copy of the tests performed today. Please bring the results with you and review them with your primary care doctor. Your laboratory / imaging results were normal, including chest x ray; this could be a bronchitis, either bacterial or viral and treated with antibiotics given high risk of infection follow up on your cultures 3) If you have any worsening of symptoms or any other concerns please return to the ED immediately. Return if worsening symptoms including fevers, headache, vomiting, visual or hearing disturbances, abdominal pain, chest pain, shortness of breath, syncope, dehydration, inability to take things by mouth/vomiting, altered mental status, or worsening concerning symptoms. 4) Please continue taking your home medications as directed. your medications on discharge include 2 antibiotics: azithromycin x 4 more days starting tomorrow and Augmentin twice a day x 10 days . side effects may include upset stomach, abdominal pain, vomiting, or diarrhea. do not drink alcohol with your medications. salt water gargles, 1-2 spoonful of honey and warm lemon tea is appropriate as well for soothing qualities for sore throat/cough. minimize spread of infection given contagious nature, and cover your mouth and wash your hands adequately with soap and water. Stay well hydrated and rest. Cool air - walk around outdoors in the evening. May also try hot shower steam. This can alleviate the congestion and cough. May use the albuterol inhaler every 4-6 hours as needed for cough and breathing to clear up your airways. Return precautions include respiratory distress, difficulty breathing, cyanosis , chest pain, lethargy, confusion, dehydration, high fevers or pain. Stay well hydrated and rest adequately. Make an appointment. If you cannot follow-up with your primary care doctor please return to the ED - Post Discharge Activity
[2019-02-03 11:24] VITALS: TEMP 99.2; BMI 21.3
[2019-02-03] MEDS ORDERED: SODIUM CHLORIDE 0.9% 500 ML INFUS.BAG IV ONE (11:35)
[2019-02-03] MEDS ORDERED: ALBUTEROL SO4 2.5/IPRATROPIUM 0.5 INH SOL 3 ML VIAL.NEB. NEB ONE (11:50)
[2019-02-03] MEDS: ALBUTEROL SO4 2.5/IPRATROPIUM 0.5 INH SOL 3 ML VIAL.NEB. NEB SCH ×3 (11:52→12:25)
[2019-02-03 12:12] LABS: ALBUMIN 3.3 g/dl (3.4-5.0); BILIRUBIN,TOTAL 0.4 mg/dl (0.2-1); CALCIUM 8.6 mg/dl (8.5-10); CREATININE 1.1 mg/dl (0.55-1.3); POTASSIUM 4.3 mmol/L (3.5-5.1); TOT PROT 6.6 g/dl (6.4-8.2)
[2019-02-03] MEDS ORDERED: CEFTRIAXONE 1,000 MG in DEXTROSE 5%-WATER - 50 ML IVPB ONE (12:42)
[2019-02-03] MEDS ORDERED: AZITHROMYCIN 500 MG TABLET PO ONE (12:42)
[2019-02-03] MEDS ORDERED: cefTRIAXone SODIUM 1 GM VIAL ONE ×2 (12:49)
[2019-02-03] MEDS ORDERED: AZITHROMYCIN 250 MG TABLET ONE (12:51)
[2019-02-03 13:30] LABS: BASO % 0.3 % (0-2.0); HEMOGLOBIN 11.9 GM/dL (11.7-16.9); LYMPH % 20.2 % (8-40); MCHC 31.4 g/dl (32.0-35.9); MEAN CELL VOLUME 73.5 fl (80-96); MEAN PLT VOLUME 8.1 fl (7.5-11.1); MONO % 17.7 % (3.8-10.2); NEUT % 60.8 % (42.8-82.8); PLATELET COUNT 403 K/MM3 (134-434); RBC 5.18 M/mm3 (4.00-5.60); RDW 17.9 % (11.9-15.9); WHITE BLOOD COUNT 8.1 K/mm3 (4.0-10.0)
[2019-02-03 13:47] LABS: VENOUS PC02 46.6 mmHg (41-51); VENOUS PH 7.36 (7.31-7.41); VENOUS PO2 37.6 mmHg (30-40)
[2019-02-03] MEDS ORDERED: predniSONE 20 MG TABLET (UD) PO ONE (14:17)
[2019-02-03] MEDS ORDERED: predniSONE 10 MG TABLET (UD) ONE (14:23)
[2019-02-03 14:53] VITALS: BP 137/85; PULSE 94
--- NOTE | 2019-02-04 14:49 | EKG ---
Test Reason : Blood Pressure : / mmHG Vent. Rate : 101 BPM Atrial Rate : 101 BPM P-R Int : 144 ms QRS Dur : 070 ms QT Int : 306 ms P-R-T Axes : 072 002 075 degrees QTc Int : 396 ms SINUS TACHYCARDIA LOW VOLTAGE QRS NONSPECIFIC T WAVE ABNORMALITY ABNORMAL ECG WHEN COMPARED WITH ECG OF 15-JUL-2018 18:01, NONSPECIFIC T WAVE ABNORMALITY, WORSE IN ANTEROLATERAL LEADS Confirmed by [id number] LILLY, ESTELA ([id number]) on 02/04/2019 2:48:58 PM Referred By: MD CHAN Confirmed By:ESTELA REDMAN MD
== END 2019-02-03 15:06 | disposition home or self-care (01) ==
LOC: FER 11:08
DX: J44.1 Chronic obstructive pulmonary disease with (acute) exacerbation (principal); Z87.891 Personal history of nicotine dependence; I10 Essential (primary) hypertension; E78.00 Pure hypercholesterolemia, unspecified; Z85.46 Personal history of malignant neoplasm of prostate
CPT/HCPCS: 36415; 71045-TC-FY; 80053; 81003; 81015; 82803; 83605; 84484; 85025; 87040; 87086; 87899; 93005; 99285-25

== ENCOUNTER 2021-01-16 11:23 | Inpatient (IN) | payer OTHER ==
[2021-01-16] MEDS ORDERED: ACETAMINOPHEN 500 MG TABLET (FP) PO ONE (12:30)
[2021-01-16] MEDS ORDERED: ACETAMINOPHEN 1000 MG/100 ML VIAL (NON FORMULARY) IVPB ONE (12:54)
[2021-01-16] MEDS ORDERED: ACETAMINOPHEN INJECTION 100 ML IVPB ONE (13:41)
[2021-01-16 13:56] LABS: BASO % 0.1 % (0-2.0); HEMATOCRIT 32.5 % (35.4-49); HEMOGLOBIN 9.8 GM/dL (11.7-16.9); MCH 21.1 pg (25.7-33.7); MCHC 30.3 g/dl (32.0-35.9); MEAN CELL VOLUME 69.7 fl (80-96); MEAN PLT VOLUME 7.9 fl (7.5-11.1); MONO % 7.6 % (3.8-10.2); NEUT % 89.3 % (42.8-82.8); PLATELET COUNT 429 10^3/uL (134-434); RBC 4.66 M/mm3 (4.00-5.60); RDW 18.3 % (11.9-15.9); WHITE BLOOD COUNT 25.7 K/mm3 (4.0-10.0)
[2021-01-16] MEDS ORDERED: PIPERACILLIN/TAZOB 4.5 GM 4.5 GM in DEXTROSE 5%-WATER 100 ML IVPB ONE (14:04)
[2021-01-16] MEDS ORDERED: VANCOMYCIN 1 GM in D5W (PRE-DOCKED) 1,000 MG/250 ML IVPB ONE (14:04)
[2021-01-16 14:20] LABS: CHLORIDE 104 mmol/L (98-107); SODIUM 138 mmol/L (136-145)
[2021-01-16 14:22] LABS: BLOOD UREA NITROGEN 17.2 mg/dL (7-18); CALCIUM 8.7 mg/dL (8.5-10.1)
[2021-01-16 14:23] LABS: ALBUMIN 3.1 g/dl (3.4-5.0); ANION GAP 9 MMOL/L (8-16); CO2 26 mmol/L (21-32); GLUCOSE,RANDOM 93 mg/dL (74-106)
[2021-01-16 14:25] LABS: CREATININE 0.9 mg/dL (0.55-1.3)
[2021-01-16 14:26] LABS: SGOT/AST 10 U/L (15-37); SGPT/ALT 14 U/L (13-61)
[2021-01-16 14:27] LABS: TOT PROT 6.6 g/dl (6.4-8.2)
[2021-01-16 14:29] LABS: ALK PHOS 62 U/L (45-117); ANISOCYTOSIS 2+; MACROCYTOSIS 0; PLATELET ESTIMATE NORMAL
[2021-01-16 14:38] LABS: BILIRUBIN,TOTAL 0.4 mg/dL (0.2-1)
[2021-01-16] MEDS ORDERED: VANCOMYCIN 1 GRAM (PRE-DOCKED) 1,000 MG/250 ML BAG IVPB ONE (14:39)
[2021-01-16] MEDS ORDERED: PIPERACILLIN/TAZOB 4.5 GM 4.5 GM/100 ML BAG IVPB ONE ×2 (14:39→21:54)
[2021-01-16] MEDS ORDERED: SODIUM CHLORIDE 0.9% 500 ML INFUS.BAG IV ONE (18:52)
[2021-01-16 19:13] LABS: PH,URINE 7.5 (5.0-8.0); URINE APPEARANCE CLEAR; URINE BILIRUBIN NEGATIVE (NEGATIVE); URINE COLOR YELLOW; URINE GLUCOSE (UA) NEGATIVE (NEGATIVE); URINE KETONE NEGATIVE (NEGATIVE); URINE LEUK ESTERASE NEGATIVE (NEGATIVE); URINE NITRITE NEGATIVE (NEGATIVE); URINE PROTEIN NEGATIVE (NEGATIVE); URINE UROBILINOGEN 0.2 mg/dL (0.2-1.0)
[2021-01-16] MEDS ORDERED: ALBUTEROL SO4 2.5/IPRATROPIUM 0.5 INH SOL 3 ML VIAL.NEB. NEB ONE (19:30)
[2021-01-16] MEDS: ALBUTEROL SO4 2.5/IPRATROPIUM 0.5 INH SOL 3 ML VIAL.NEB. NEB SCH (19:36)
[2021-01-16] MEDS ORDERED: PIPERACILLIN/TAZOB 4.5 GM 4.5 GM in DEXTROSE 5%-WATER 100 ML IVPB SCH (21:00)
[2021-01-16] MEDS: PIPERACILLIN/TAZOB 4.5 GM 4.5 GM in DEXTROSE 5%-WATER 100 ML IVPB SCH (22:04)
[2021-01-17] MEDS ORDERED: PIPERACILLIN/TAZOBACTAM 4.5 GM VIAL IVPB ONE ×3 (02:05→17:00)
[2021-01-17] MEDS: PIPERACILLIN/TAZOB 4.5 GM 4.5 GM in DEXTROSE 5%-WATER 100 ML IVPB SCH ×3 (02:39→18:11)
[2021-01-17 07:15] LABS: BASO % 0.3 % (0-2.0); EOS % 0.7 % (0-4.5); HEMATOCRIT 28.5 % (35.4-49); HEMOGLOBIN 8.9 GM/dL (11.7-16.9); LYMPH % 9.7 % (8-40); MCH 21.6 pg (25.7-33.7); MCHC 31.1 g/dl (32.0-35.9); MEAN CELL VOLUME 69.4 fl (80-96); MEAN PLT VOLUME 7.6 fl (7.5-11.1); MONO % 11.1 % (3.8-10.2); NEUT % 78.2 % (42.8-82.8); PLATELET COUNT 388 10^3/uL (134-434); RDW 18.3 % (11.9-15.9); WHITE BLOOD COUNT 18.2 K/mm3 (4.0-10.0)
[2021-01-17 07:45] LABS: BLOOD UREA NITROGEN 15.3 mg/dL (7-18); CALCIUM 8.4 mg/dL (8.5-10.1)
[2021-01-17 07:46] LABS: ALBUMIN 2.6 g/dl (3.4-5.0)
[2021-01-17 07:48] LABS: BILIRUBIN,TOTAL 0.6 mg/dL (0.2-1)
[2021-01-17 07:49] LABS: CREATININE 0.9 mg/dL (0.55-1.3)
[2021-01-17 07:50] LABS: TOT PROT 5.6 g/dl (6.4-8.2)
[2021-01-17] MEDS: ALBUTEROL SO4 2.5/IPRATROPIUM 0.5 INH SOL 3 ML VIAL.NEB. NEB SCH ×4 (09:30→20:50)
[2021-01-17] MEDS ORDERED: DEXTROSE 5%-WATER 100 ML IVPB ONE ×2 (09:47→17:00)
[2021-01-17] MEDS ORDERED: VANCOMYCIN 750 MG in DEXTROSE 5%-WATER - 150 ML IVPB SCH (14:00)
[2021-01-18] MEDS ORDERED: PIPERACILLIN/TAZOBACTAM 4.5 GM VIAL IVPB ONE ×3 (01:10→16:29)
[2021-01-18] MEDS ORDERED: DEXTROSE 5%-WATER 100 ML IVPB ONE ×3 (01:10→16:29)
[2021-01-18] MEDS: PIPERACILLIN/TAZOB 4.5 GM 4.5 GM in DEXTROSE 5%-WATER 100 ML IVPB SCH ×3 (01:13→17:00)
[2021-01-18] MEDS: ALBUTEROL SO4 2.5/IPRATROPIUM 0.5 INH SOL 3 ML VIAL.NEB. NEB SCH ×4 (07:37→20:50)
[2021-01-18 08:34] LABS: BASO % 0.3 % (0-2.0); EOS % 1.6 % (0-4.5); HEMOGLOBIN 10.2 GM/dL (11.7-16.9); LYMPH % 11.3 % (8-40); MCH 21.6 pg (25.7-33.7); MEAN CELL VOLUME 69.6 fl (80-96); MEAN PLT VOLUME 8.1 fl (7.5-11.1); MONO % 9.2 % (3.8-10.2); NEUT % 77.6 % (42.8-82.8); PLATELET COUNT 454 10^3/uL (134-434); RBC 4.74 M/mm3 (4.00-5.60); RDW 18.7 % (11.9-15.9); WHITE BLOOD COUNT 16.8 K/mm3 (4.0-10.0)
[2021-01-18 08:49] LABS: BLOOD UREA NITROGEN 11.5 mg/dL (7-18); CALCIUM 9.2 mg/dL (8.5-10.1)
[2021-01-18] MEDS: LIDOCAINE 5% TOPICAL PATCH TP SCH (09:24)
[2021-01-18] MEDS: ACETAMINOPHEN 325 MG TABLET (FP) PO PRN ×2 (09:24→21:31)
[2021-01-18 09:33] LABS: ERYTHROCYTE SEDIMENTATION RATE 75 mm/hr (0-20)
[2021-01-18] MEDS ORDERED: ALBUTEROL SO4 2.5/IPRATROPIUM 0.5 INH SOL 3 ML VIAL.NEB. NEB STA (17:12)
[2021-01-18] MEDS ORDERED: INSULIN (NOVOLOG) ASPART 100 UNITS/ML 10ML VIAL ONE (17:16)
[2021-01-18] MEDS: LIDOCAINE PATCH REMOVAL MC SCH (21:31)
[2021-01-18] MEDS ORDERED: FAMOTIDINE 20 MG TABLET PO SCH (22:00)
[2021-01-19] MEDS ORDERED: DEXTROSE 5%-WATER 100 ML IVPB ONE ×2 (00:04→10:11)
[2021-01-19] MEDS ORDERED: PIPERACILLIN/TAZOBACTAM 4.5 GM VIAL IVPB ONE ×2 (00:04→10:11)
[2021-01-19] MEDS: PIPERACILLIN/TAZOB 4.5 GM 4.5 GM in DEXTROSE 5%-WATER 100 ML IVPB SCH ×2 (01:09→11:07)
[2021-01-19 07:24] LABS: BASO % 0.4 % (0-2.0); EOS % 5.6 % (0-4.5); HEMATOCRIT 31.2 % (35.4-49); HEMOGLOBIN 9.6 GM/dL (11.7-16.9); LYMPH % 13.9 % (8-40); MCH 21.5 pg (25.7-33.7); MCHC 30.9 g/dl (32.0-35.9); MEAN CELL VOLUME 69.5 fl (80-96); MEAN PLT VOLUME 7.7 fl (7.5-11.1); MONO % 8.9 % (3.8-10.2); NEUT % 71.2 % (42.8-82.8); PLATELET COUNT 414 10^3/uL (134-434); RBC 4.49 M/mm3 (4.00-5.60); RDW 18.5 % (11.9-15.9); WHITE BLOOD COUNT 12.3 K/mm3 (4.0-10.0)
[2021-01-19] MEDS: ALBUTEROL SO4 2.5/IPRATROPIUM 0.5 INH SOL 3 ML VIAL.NEB. NEB SCH ×4 (07:40→20:32)
[2021-01-19] MEDS: LIDOCAINE 5% TOPICAL PATCH TP SCH (11:07)
[2021-01-19] MEDS ORDERED: PIPERACILLIN/TAZOBACTAM 3.375 GM VIAL IVPB ONE (17:10)
[2021-01-19] MEDS ORDERED: DEXTROSE 5%-WATER - 50 ML IVPB ONE (17:11)
[2021-01-19] MEDS: PIPERACILLIN/TAZOB 3.375 GM 3.375 GM in DEXTROSE 5%-WATER - 50 ML IVPB SCH (17:35)
[2021-01-19] MEDS: LIDOCAINE PATCH REMOVAL MC SCH (21:45)
[2021-01-19] MEDS: ACETAMINOPHEN 325 MG TABLET (FP) PO PRN (21:46)
[2021-01-20] MEDS ORDERED: DEXTROSE 5%-WATER - 50 ML IVPB ONE ×3 (00:47→16:35)
[2021-01-20] MEDS ORDERED: PIPERACILLIN/TAZOBACTAM 3.375 GM VIAL IVPB ONE ×3 (00:47→16:34)
[2021-01-20] MEDS: PIPERACILLIN/TAZOB 3.375 GM 3.375 GM in DEXTROSE 5%-WATER - 50 ML IVPB SCH ×3 (02:59→17:08)
[2021-01-20] MEDS ORDERED: PT OWN MED DRAWER 7, Y5N ONE (07:20)
[2021-01-20] MEDS: ALBUTEROL SO4 2.5/IPRATROPIUM 0.5 INH SOL 3 ML VIAL.NEB. NEB SCH ×4 (07:20→20:30)
[2021-01-20] MEDS: LIDOCAINE 5% TOPICAL PATCH TP SCH (09:07)
[2021-01-20] MEDS: ACETAMINOPHEN 325 MG TABLET (FP) PO PRN ×2 (11:02→22:51)
[2021-01-20] MEDS: LIDOCAINE PATCH REMOVAL MC SCH (22:50)
[2021-01-21] MEDS ORDERED: PIPERACILLIN/TAZOBACTAM 3.375 GM VIAL IVPB ONE ×3 (04:25→17:02)
[2021-01-21] MEDS ORDERED: DEXTROSE 5%-WATER - 50 ML IVPB ONE ×3 (04:26→17:02)
[2021-01-21] MEDS: PIPERACILLIN/TAZOB 3.375 GM 3.375 GM in DEXTROSE 5%-WATER - 50 ML IVPB SCH ×3 (04:30→17:59)
[2021-01-21] MEDS: ALBUTEROL SO4 2.5/IPRATROPIUM 0.5 INH SOL 3 ML VIAL.NEB. NEB SCH ×4 (07:46→20:00)
[2021-01-21] MEDS: LIDOCAINE 5% TOPICAL PATCH TP SCH (09:02)
[2021-01-21] MEDS: LACTOBACILLUS ACIDOPHILUS 1 TABLET PO SCH (15:34)
[2021-01-21] MEDS ORDERED: ALBUTEROL SO4 2.5/IPRATROPIUM 0.5 INH SOL 3 ML VIAL.NEB. NEB PRN (18:19)
[2021-01-21] MEDS: LIDOCAINE PATCH REMOVAL MC SCH (22:09)
[2021-01-21] MEDS: ASCORBIC ACID 250 MG TABLET (FP) PO SCH (22:11)
[2021-01-21] MEDS: DOCUSATE SODIUM 100 MG CAPSULE (FP) PO SCH (22:11)
[2021-01-22] MEDS ORDERED: DEXTROSE 5%-WATER - 50 ML IVPB ONE ×3 (00:48→16:28)
[2021-01-22] MEDS ORDERED: PIPERACILLIN/TAZOBACTAM 3.375 GM VIAL IVPB ONE ×3 (00:48→16:28)
[2021-01-22] MEDS: PIPERACILLIN/TAZOB 3.375 GM 3.375 GM in DEXTROSE 5%-WATER - 50 ML IVPB SCH ×3 (03:41→17:10)
[2021-01-22 08:08] LABS: BASO % 0.6 % (0-2.0); EOS % 5.6 % (0-4.5); HEMATOCRIT 30.8 % (35.4-49); HEMOGLOBIN 9.4 GM/dL (11.7-16.9); LYMPH % 15.6 % (8-40); MCH 21.3 pg (25.7-33.7); MCHC 30.4 g/dl (32.0-35.9); MEAN PLT VOLUME 7.9 fl (7.5-11.1); MONO % 9.7 % (3.8-10.2); NEUT % 68.5 % (42.8-82.8); PLATELET COUNT 419 10^3/uL (134-434); RDW 18.7 % (11.9-15.9); WHITE BLOOD COUNT 14.3 K/mm3 (4.0-10.0)
[2021-01-22 08:27] LABS: CALCIUM 8.8 mg/dL (8.5-10.1)
[2021-01-22 08:28] LABS: BLOOD UREA NITROGEN 15.1 mg/dL (7-18)
[2021-01-22 08:31] LABS: CREATININE 1.1 mg/dL (0.55-1.3)
[2021-01-22] MEDS: ALBUTEROL SO4 2.5/IPRATROPIUM 0.5 INH SOL 3 ML VIAL.NEB. NEB SCH ×8 (08:52→20:11)
[2021-01-22] MEDS: LIDOCAINE 5% TOPICAL PATCH TP SCH (09:48)
[2021-01-22] MEDS: ASCORBIC ACID 250 MG TABLET (FP) PO SCH ×2 (09:48→22:03)
[2021-01-22] MEDS: LACTOBACILLUS ACIDOPHILUS 1 TABLET PO SCH (09:49)
[2021-01-22] MEDS ORDERED: FAMOTIDINE 20 MG TABLET PO SCH (10:00)
[2021-01-22 11:43] LABS: ANISOCYTOSIS 1+; MACROCYTOSIS 0; OVALOCYTE 1+; PLATELET ESTIMATE INCREASED
[2021-01-22] MEDS: DOCUSATE SODIUM 100 MG CAPSULE (FP) PO SCH (22:03)
[2021-01-22] MEDS: LIDOCAINE PATCH REMOVAL MC SCH (22:08)
[2021-01-23] MEDS ORDERED: PIPERACILLIN/TAZOBACTAM 3.375 GM VIAL IVPB ONE ×3 (02:09→17:15)
[2021-01-23] MEDS ORDERED: DEXTROSE 5%-WATER - 50 ML IVPB ONE ×3 (02:09→17:15)
[2021-01-23] MEDS: PIPERACILLIN/TAZOB 3.375 GM 3.375 GM in DEXTROSE 5%-WATER - 50 ML IVPB SCH ×3 (02:17→17:49)
[2021-01-23] MEDS: ALBUTEROL SO4 2.5/IPRATROPIUM 0.5 INH SOL 3 ML VIAL.NEB. NEB SCH ×7 (08:20→20:27)
[2021-01-23] MEDS: LACTOBACILLUS ACIDOPHILUS 1 TABLET PO SCH (10:10)
[2021-01-23] MEDS: FAMOTIDINE 20 MG TABLET PO SCH (10:11)
[2021-01-23] MEDS: ASCORBIC ACID 250 MG TABLET (FP) PO SCH ×2 (10:11→21:39)
[2021-01-23] MEDS: LIDOCAINE 5% TOPICAL PATCH TP SCH (10:11)
[2021-01-23] MEDS: LIDOCAINE PATCH REMOVAL MC SCH (21:39)
[2021-01-23] MEDS: DOCUSATE SODIUM 100 MG CAPSULE (FP) PO SCH (21:39)
[2021-01-23 23:59] VITALS: BMI 20.5
[2021-01-24] MEDS ORDERED: DEXTROSE 5%-WATER - 50 ML IVPB ONE ×3 (04:03→19:01)
[2021-01-24] MEDS ORDERED: PIPERACILLIN/TAZOBACTAM 3.375 GM VIAL IVPB ONE ×3 (04:03→19:01)
[2021-01-24] MEDS: PIPERACILLIN/TAZOB 3.375 GM 3.375 GM in DEXTROSE 5%-WATER - 50 ML IVPB SCH ×3 (04:06→22:20)
[2021-01-24 07:27] LABS: BASO % 0.4 % (0-2.0); EOS % 5.1 % (0-4.5); HEMATOCRIT 31.7 % (35.4-49); HEMOGLOBIN 9.4 GM/dL (11.7-16.9); LYMPH % 17.6 % (8-40); MCHC 29.8 g/dl (32.0-35.9); MEAN CELL VOLUME 70.5 fl (80-96); MEAN PLT VOLUME 7.9 fl (7.5-11.1); MONO % 9.3 % (3.8-10.2); NEUT % 67.6 % (42.8-82.8); PLATELET COUNT 459 10^3/uL (134-434); RDW 18.4 % (11.9-15.9); WHITE BLOOD COUNT 11.5 K/mm3 (4.0-10.0)
[2021-01-24] MEDS: ALBUTEROL SO4 2.5/IPRATROPIUM 0.5 INH SOL 3 ML VIAL.NEB. NEB SCH ×9 (07:35→20:10)
[2021-01-24 07:39] LABS: CALCIUM 8.3 mg/dL (8.5-10.1)
[2021-01-24 07:43] LABS: CREATININE 1.1 mg/dL (0.55-1.3)
[2021-01-24] MEDS: LACTOBACILLUS ACIDOPHILUS 1 TABLET PO SCH (10:27)
[2021-01-24] MEDS: FAMOTIDINE 20 MG TABLET PO SCH (10:27)
[2021-01-24] MEDS: LIDOCAINE 5% TOPICAL PATCH TP SCH (10:27)
[2021-01-24] MEDS: ASCORBIC ACID 250 MG TABLET (FP) PO SCH ×2 (10:27→22:21)
[2021-01-24] MEDS ORDERED: METOPROLOL TARTRATE 5 MG/5 ML VIAL IVPUSH PRN (12:48)
[2021-01-24] MEDS: metoPROLOL SUCCINATE 25 MG TAB.SR.24H (FP) PO SCH (15:38)
[2021-01-24] MEDS: DOCUSATE SODIUM 100 MG CAPSULE (FP) PO SCH (22:20)
[2021-01-24] MEDS: LIDOCAINE PATCH REMOVAL MC SCH (22:21)
[2021-01-25] MEDS ORDERED: DEXTROSE 5%-WATER - 50 ML IVPB ONE ×3 (01:31→18:04)
[2021-01-25] MEDS ORDERED: PIPERACILLIN/TAZOBACTAM 3.375 GM VIAL IVPB ONE ×3 (01:31→18:04)
[2021-01-25] MEDS: PIPERACILLIN/TAZOB 3.375 GM 3.375 GM in DEXTROSE 5%-WATER - 50 ML IVPB SCH ×3 (01:50→18:14)
[2021-01-25] MEDS ORDERED: ALBUTEROL SO4 2.5/IPRATROPIUM 0.5 INH SOL 3 ML VIAL.NEB. NEB ONE (04:12)
[2021-01-25 06:54] LABS: BASO % 0.4 % (0-2.0); EOS % 4.5 % (0-4.5); HEMATOCRIT 29.2 % (35.4-49); HEMOGLOBIN 9.1 GM/dL (11.7-16.9); LYMPH % 18.6 % (8-40); MCH 21.6 pg (25.7-33.7); MCHC 31.1 g/dl (32.0-35.9); MEAN CELL VOLUME 69.5 fl (80-96); MEAN PLT VOLUME 7.6 fl (7.5-11.1); MONO % 11.3 % (3.8-10.2); NEUT % 65.2 % (42.8-82.8); PLATELET COUNT 434 10^3/uL (134-434); WHITE BLOOD COUNT 11.8 K/mm3 (4.0-10.0)
[2021-01-25 07:13] LABS: CALCIUM 8.5 mg/dL (8.5-10.1)
[2021-01-25 07:14] LABS: BLOOD UREA NITROGEN 12.5 mg/dL (7-18)
[2021-01-25] MEDS: ALBUTEROL SO4 2.5/IPRATROPIUM 0.5 INH SOL 3 ML VIAL.NEB. NEB SCH ×4 (07:25→20:10)
[2021-01-25] MEDS: LIDOCAINE 5% TOPICAL PATCH TP SCH (11:20)
[2021-01-25] MEDS: metoPROLOL SUCCINATE 25 MG TAB.SR.24H (FP) PO SCH (11:20)
[2021-01-25] MEDS: FAMOTIDINE 20 MG TABLET PO SCH (11:20)
[2021-01-25] MEDS: MULTIVITAMINS (DAILY MVI) TABLET (FP) PO SCH (11:20)
[2021-01-25] MEDS: ASCORBIC ACID 250 MG TABLET (FP) PO SCH ×2 (11:20→21:44)
[2021-01-25] MEDS: LACTOBACILLUS ACIDOPHILUS 1 TABLET PO SCH (11:20)
[2021-01-25] MEDS: ACETAMINOPHEN 325 MG TABLET (FP) PO PRN (15:18)
[2021-01-25] MEDS ORDERED: D5-1/2NS+10 MEQ KCL - 10 MEQ/1,000 ML INFUS.BAG IV SCH (16:45)
[2021-01-25] MEDS: DOCUSATE SODIUM 100 MG CAPSULE (FP) PO SCH (21:44)
[2021-01-25] MEDS: LIDOCAINE PATCH REMOVAL MC SCH (22:08)
[2021-01-26] MEDS ORDERED: PIPERACILLIN/TAZOBACTAM 3.375 GM VIAL IVPB ONE ×2 (03:01→09:45)
[2021-01-26] MEDS ORDERED: DEXTROSE 5%-WATER - 50 ML IVPB ONE ×2 (03:01→09:45)
[2021-01-26] MEDS: PIPERACILLIN/TAZOB 3.375 GM 3.375 GM in DEXTROSE 5%-WATER - 50 ML IVPB SCH ×2 (03:03→10:05)
[2021-01-26] MEDS: ALBUTEROL SO4 2.5/IPRATROPIUM 0.5 INH SOL 3 ML VIAL.NEB. NEB SCH ×2 (07:34→11:05)
[2021-01-26] MEDS: ACETAMINOPHEN 325 MG TABLET (FP) PO PRN (08:51)
[2021-01-26 09:30] VITALS: BP 103/60; PULSE 98; TEMP 100.1
[2021-01-26] MEDS: MULTIVITAMINS (DAILY MVI) TABLET (FP) PO SCH (10:09)
[2021-01-26] MEDS: LACTOBACILLUS ACIDOPHILUS 1 TABLET PO SCH (10:09)
[2021-01-26] MEDS: ASCORBIC ACID 250 MG TABLET (FP) PO SCH (10:09)
[2021-01-26] MEDS: metoPROLOL SUCCINATE 25 MG TAB.SR.24H (FP) PO SCH (10:09)
[2021-01-26] MEDS: FAMOTIDINE 20 MG TABLET PO SCH (10:09)
[2021-01-26] MEDS: LIDOCAINE 5% TOPICAL PATCH TP SCH (10:09)
== END 2021-01-26 15:27 | DRG 871 ==
LOC: JER 11:23 → JERBED 12:44 → J4W 01-17 01:51
PROVIDERS: ADMIT Internal Medicine; ATTEND Internal Medicine
DX: A41.9 Sepsis, unspecified organism (principal); G93.41 Metabolic encephalopathy; J96.02 Acute respiratory failure with hypercapnia; I47.2 Ventricular tachycardia; M81.0 Age-related osteoporosis without current pathological fracture; J44.9 Chronic obstructive pulmonary disease, unspecified; I25.10 Atherosclerotic heart disease of native coronary artery without angina pectoris; I25.2 Old myocardial infarction; E11.42 Type 2 diabetes mellitus with diabetic polyneuropathy; E78.5 Hyperlipidemia, unspecified; Z85.46 Personal history of malignant neoplasm of prostate; R55 Syncope and collapse; D64.9 Anemia, unspecified; F03.90 Unspecified dementia, unspecified severity, without behavioral disturbance, psychotic disturbance, mood disturbance, and anxiety; I35.0 Nonrheumatic aortic (valve) stenosis
CPT/HCPCS: 36415; 70450-TC; 71045-TC-FY; 72125-TC; 72170-TC-FY; 73030-TC-RT-FY; 73060-TC-RT-FY; 74176-TC; 80048; 80053; 80061; 81003; 82550; 83605; 83721; 84443; 84484; 85025; 85651; 87040; 87086; 93005; 93010; 93306-TC; 93880-TC; 94010; 94640; 97116-GP; 97162-GP; 99285-25; C9803; J0131; U0003; U0005

== ENCOUNTER 2021-12-04 14:50 | Emergency (ER) | payer OTHER ==
[2021-12-04 15:05] VITALS: TEMP 98; BMI 20.8
[2021-12-04 17:06] LABS: BASO % 0.4 % (0-2.0); EOS % 2.4 % (0-4.5); HEMATOCRIT 27.8 % (35.4-49); HEMOGLOBIN 8.4 GM/dL (11.7-16.9); LYMPH % 18.6 % (8-40); MCHC 30.4 g/dl (32.0-35.9); MEAN CELL VOLUME 63.4 fl (80-96); MEAN PLT VOLUME 7.6 fl (7.5-11.1); MONO % 10.2 % (3.8-10.2); NEUT % 68.4 % (42.8-82.8); PLATELET COUNT 381 10^3/uL (134-434); RBC 4.38 M/mm3 (4.00-5.60); RDW 19.5 % (11.9-15.9); WHITE BLOOD COUNT 12.9 K/mm3 (4.0-10.0)
[2021-12-04 17:07] LABS: MCH 19.3 pg (25.7-33.7)
[2021-12-04 17:16] LABS: INR 1.16 (0.83-1.09); PROTHROMBIN TIME (PATIENT) 13.4 SEC (9.7-13.0)
[2021-12-04 17:19] LABS: ACTIVATED PTT 25.7 SECONDS (25.2-36.5)
[2021-12-04] MEDS ORDERED: ALBUTEROL SO4 2.5/IPRATROPIUM 0.5 INH SOL 3 ML VIAL.NEB. NEB ONE ×2 (17:20→17:25)
[2021-12-04 17:28] LABS: ALBUMIN 2.7 g/dl (3.4-5.0); CALCIUM 8.7 mg/dL (8.5-10.1)
[2021-12-04 17:31] LABS: CREATININE 0.9 mg/dL (0.55-1.3)
[2021-12-04 17:33] LABS: BILIRUBIN,TOTAL 0.3 mg/dL (0.2-1); TOT PROT 6.1 g/dl (6.4-8.2)
[2021-12-04 18:01] LABS: ANISOCYTOSIS 3+; MACROCYTOSIS 0; OVALOCYTE 1+; TARGET CELLS 1+
[2021-12-04 19:27] LABS: URINE APPEARANCE CLEAR; URINE BILIRUBIN NEGATIVE (NEGATIVE); URINE COLOR YELLOW; URINE GLUCOSE (UA) NEGATIVE (NEGATIVE); URINE KETONE NEGATIVE (NEGATIVE); URINE LEUK ESTERASE NEGATIVE (NEGATIVE); URINE NITRITE NEGATIVE (NEGATIVE); URINE PROTEIN NEGATIVE (NEGATIVE); URINE UROBILINOGEN 0.2 mg/dL (0.2-1.0)
[2021-12-04 19:28] VITALS: BP 138/61; PULSE 82
== END 2021-12-04 21:43 | disposition home or self-care (01) ==
LOC: JER 14:50
PROC: 3E0F7GC Introduction of Other Therapeutic Substance into Respiratory Tract, Via Natural or Artificial Opening (ICD-10-PCS; principal; 2021-12-04)
DX: S32.010A Wedge compression fracture of first lumbar vertebra, initial encounter for closed fracture (principal); W18.2XXA Fall in (into) shower or empty bathtub, initial encounter
CPT/HCPCS: 0241U-QW; 36415; 70450-TC; 71045-TC-FY; 72131-TC; 80053; 81003; 85025; 85610; 85730; 86850; 86900; 86901; 87086; 87807; 93005; 93010; 99285-25; C9803-CS; U0003; U0005

== ENCOUNTER 2022-05-23 13:27 | Inpatient (IN) | payer OTHER ==
[2022-05-23] MEDS ORDERED: ALBUTEROL SO4 2.5/IPRATROPIUM 0.5 INH SOL 3 ML VIAL.NEB. NEB ONE ×3 (14:09→22:40)
[2022-05-23] MEDS ORDERED: methylPREDNISolone NA SUCC 125 MG/2 ML VIAL IVPUSH ONE (14:10)
[2022-05-23] MEDS ORDERED: ACETAMINOPHEN 1000 MG/100 ML BAG IVPB ONE (14:12)
[2022-05-23] MEDS ORDERED: SODIUM CHLORIDE 0.9% 500 ML INFUS.BAG IV ONE (14:14)
[2022-05-23 14:51] LABS: BASO % 0.7 % (0-2.0); EOS % 3.5 % (0-4.5); HEMATOCRIT 30.2 % (35.4-49); HEMOGLOBIN 9.3 GM/dL (11.7-16.9); LYMPH % 10.6 % (8-40); MCH 20.6 pg (25.7-33.7); MCHC 30.8 g/dl (32.0-35.9); MEAN CELL VOLUME 66.9 fl (80-96); MEAN PLT VOLUME 6.9 fl (7.5-11.1); MONO % 10.1 % (3.8-10.2); NEUT % 75.1 % (42.8-82.8); PLATELET COUNT 472 10^3/uL (134-434); RBC 4.51 M/mm3 (4.00-5.60); VENOUS BASE EXCESS -0.3 mmol/L (-2-2); VENOUS O2 SATURATION 67.2 % (70-80); VENOUS PCO2 43.8 mmHg (38-52); VENOUS PH 7.374 (7.310-7.410); WHITE BLOOD COUNT 11.5 K/mm3 (4.0-10.0)
[2022-05-23] MEDS ORDERED: ACETAMINOPHEN INJECTION 100 ML IVPB ONE (15:07)
[2022-05-23] MEDS ORDERED: methylPREDNISolone NA SUCC 125 MG/2 ML VIAL ONE (15:07)
[2022-05-23] MEDS ORDERED: CEFTRIAXONE 1 GM in DEXTROSE 5%-WATER - 100 ML IVPB ONE (15:14)
[2022-05-23] MEDS ORDERED: AZITHROMYCIN IVPB 500 MG in DEXTROSE 5%-WATER - 250 ML IVPB ONE (15:14)
[2022-05-23 15:22] LABS: CALCIUM 9.1 mg/dL (8.5-10.1)
[2022-05-23 15:23] LABS: ALBUMIN 2.7 g/dl (3.4-5.0); BLOOD UREA NITROGEN 15.3 mg/dL (7-18); MAGNESIUM 2.3 mg/dL (1.8-2.4)
[2022-05-23] MEDS ORDERED: CEFTRIAXONE 1 GM/50 ML BAG ONE (15:24)
[2022-05-23] MEDS ORDERED: AZITHROMYCIN IVPB 500 MG/250 ML BAG IVPB ONE (15:24)
[2022-05-23 15:25] LABS: PHOSPHOROUS 3.3 mg/dL (2.5-4.9)
[2022-05-23 15:27] LABS: BILIRUBIN,TOTAL 0.3 mg/dL (0.2-1); TOT PROT 6.2 g/dl (6.4-8.2)
[2022-05-23 16:19] LABS: URINE APPEARANCE CLEAR; URINE BILIRUBIN NEGATIVE (NEGATIVE); URINE COLOR YELLOW; URINE GLUCOSE (UA) NEGATIVE (NEGATIVE); URINE KETONE NEGATIVE (NEGATIVE); URINE LEUK ESTERASE NEGATIVE (NEGATIVE); URINE NITRITE NEGATIVE (NEGATIVE); URINE PROTEIN NEGATIVE (NEGATIVE); URINE UROBILINOGEN 0.2 mg/dL (0.2-1.0)
[2022-05-23] MEDS ORDERED: ALBUTEROL SO4 0.083% IH SOL 2.5 MG/3 ML VIAL.NEB. NEB PRN (19:06)
[2022-05-23] MEDS: PIPERACILLIN/TAZOB 3.375 GM 3.375 GM in DEXTROSE 5%-WATER - 50 ML IVPB SCH (20:00)
[2022-05-23] MEDS ORDERED: ATORVASTATIN CA 10 MG TABLET (FP) PO SCH (22:00)
[2022-05-23] MEDS ORDERED: MONTELUKAST NA 10 MG TABLET PO SCH (22:00)
[2022-05-23] MEDS: ALBUTEROL SO4 2.5/IPRATROPIUM 0.5 INH SOL 3 ML VIAL.NEB. NEB SCH (22:21)
[2022-05-23] MEDS ORDERED: MONTELUKAST NA 10 MG TABLET ONE (22:25)
[2022-05-23] MEDS ORDERED: methylPREDNISolone NA SUCC 40 MG/1 ML VIAL ONE (22:25)
[2022-05-23] MEDS ORDERED: ATORVASTATIN CA 10 MG TABLET (FP) ONE (22:25)
[2022-05-23] MEDS: methylPREDNISolone NA SUCC 125 MG/2 ML VIAL IVPUSH SCH (22:33)
[2022-05-23] MEDS ORDERED: PIPERACILLIN/TAZOB 3.375 GM 3.375 GM/50 ML BAG IVPB ONE (22:34)
[2022-05-23] MEDS: BRIMONIDINE TARTRATE 0.15% OPHTHALMIC 5 ML BOTTLE OD SCH (22:39)
[2022-05-24] MEDS ORDERED: methylPREDNISolone NA SUCC 40 MG/1 ML VIAL ONE (01:17)
[2022-05-24] MEDS ORDERED: PIPERACILLIN/TAZOB 3.375 GM 3.375 GM/50 ML BAG IVPB ONE (01:17)
[2022-05-24] MEDS: ALBUTEROL SO4 2.5/IPRATROPIUM 0.5 INH SOL 3 ML VIAL.NEB. NEB SCH ×7 (01:21→20:17)
[2022-05-24] MEDS: PIPERACILLIN/TAZOB 3.375 GM 3.375 GM in DEXTROSE 5%-WATER - 50 ML IVPB SCH ×3 (02:11→17:23)
[2022-05-24] MEDS: methylPREDNISolone NA SUCC 125 MG/2 ML VIAL IVPUSH SCH ×3 (02:11→17:23)
[2022-05-24] MEDS ORDERED: RAPID SEQUENCE INTUBATION KIT NR ONE (02:25)
[2022-05-24] MEDS ORDERED: LIDOCAINE 0.4% PREMIX IVPB 2,000 MG/500 ML INFUS..BTL ONE (02:29)
[2022-05-24] MEDS ORDERED: LIDOCAINE 0.4% PREMIX IVPB 2,000 MG/500 ML INFUS..BTL IV SCH (02:45)
[2022-05-24] MEDS ORDERED: EPINEPHrine INTRACARD 1:10,000 1 MG/10 ML DISP.SYRIN ICARD ONE (03:00)
[2022-05-24] MEDS ORDERED: LIDOCAINE HCL 2% 100 MG/5 ML DISP.SYRIN IVPUSH ONE (03:01)
[2022-05-24] MEDS ORDERED: ROCURONIUM BROMIDE 50 MG/5 ML VIAL IV ONE (03:02)
[2022-05-24] MEDS ORDERED: SODIUM CHLORIDE 1,000 ML IV STA (03:03)
[2022-05-24 04:36] LABS: ARTERIAL BLD GAS O2 SATURATION 99.5 % (95-98); ARTERIAL BLOOD GAS BASE EXCESS -8.4 mmol/L (-2-2); ARTERIAL BLOOD GAS PO2 275.5 mmHg (80-100); ARTERIAL BLOOD GAS pH 7.224 (7.350-7.450)
[2022-05-24 04:37] LABS: ALLENS TEST POSITIVE
[2022-05-24 04:38] LABS: VENT MODE A/C; VENT RATE 15
[2022-05-24 05:00] LABS: INR 1.23 (0.83-1.09); PROTHROMBIN TIME (PATIENT) 14.2 SEC (9.7-13.0)
[2022-05-24 05:03] LABS: ACTIVATED PTT 30.1 SECONDS (25.2-36.5)
[2022-05-24] MEDS ORDERED: MIDAZOLAM HCL 2 MG/2 ML SINGLE DOSE VIAL IVPUSH PRN (05:03)
[2022-05-24 05:18] LABS: ALBUMIN 2.5 g/dl (3.4-5.0)
[2022-05-24 05:19] LABS: BLOOD UREA NITROGEN 13.8 mg/dL (7-18); MAGNESIUM 2.3 mg/dL (1.8-2.4)
[2022-05-24 05:22] LABS: CREATININE 0.9 mg/dL (0.55-1.3); PHOSPHOROUS 4.6 mg/dL (2.5-4.9)
[2022-05-24 05:23] LABS: BILIRUBIN,TOTAL 0.3 mg/dL (0.2-1)
[2022-05-24 05:27] LABS: N-TERMINAL BNP 1861.1 pg/ml (5-450)
[2022-05-24] MEDS ORDERED: INSULIN SLIDING SCALE (NOVOLOG) 1 VIAL SQ SCH (05:45)
[2022-05-24] MEDS: BRIMONIDINE TARTRATE 0.15% OPHTHALMIC 5 ML BOTTLE OD SCH ×3 (06:15→21:48)
[2022-05-24 06:23] LABS: HEMATOCRIT 33.4 % (35.4-49); MCH 20.5 pg (25.7-33.7); MEAN CELL VOLUME 68.3 fl (80-96); MEAN PLT VOLUME 7.4 fl (7.5-11.1); PLATELET COUNT 547 10^3/uL (134-434); RBC 4.88 M/mm3 (4.00-5.60); RDW 20.5 % (11.9-15.9)
[2022-05-24] MEDS ORDERED: SODIUM CHLORIDE 1,000 ML IV SCH (07:30)
[2022-05-24] MEDS: MUPIROCIN 2% TOPICAL OINTMENT FOR DECOLONIZATION NS SCH ×2 (09:30→21:49)
[2022-05-24] MEDS: PANTOPRAZOLE SODIUM 40 MG VIAL IVPUSH SCH (09:32)
[2022-05-24 09:33] LABS: ARTERIAL BLD GAS O2 SATURATION 98.7 % (95-98); ARTERIAL BLOOD GAS BASE EXCESS -1.8 mmol/L (-2-2); ARTERIAL BLOOD GAS PO2 145.2 mmHg (80-100); ARTERIAL BLOOD GAS pH 7.348 (7.350-7.450)
[2022-05-24 09:37] LABS: ALLENS TEST POSITIVE; VENT MODE PSV
[2022-05-24 09:38] LABS: VENT RATE 12
[2022-05-24] MEDS ORDERED: ASPIRIN 81 MG CHEWABLE TABLETS PO SCH (10:00)
[2022-05-24] MEDS ORDERED: PANTOPRAZOLE 40 MG TABLET PO SCH (10:00)
[2022-05-24] MEDS ORDERED: ENOXAPARIN NA (PORCINE) 40 MG/0.4 ML DISP.SYRIN SQ SCH (10:00)
[2022-05-24 10:52] LABS: HEMATOCRIT 28.6 % (35.4-49); HEMOGLOBIN 8.8 GM/dL (11.7-16.9); MCH 20.5 pg (25.7-33.7); MCHC 30.8 g/dl (32.0-35.9); MEAN CELL VOLUME 66.6 fl (80-96); MEAN PLT VOLUME 7.1 fl (7.5-11.1); PLATELET COUNT 452 10^3/uL (134-434); RBC 4.29 M/mm3 (4.00-5.60); WHITE BLOOD COUNT 20.3 K/mm3 (4.0-10.0)
[2022-05-24] MEDS: INSULIN SLIDING SCALE (NOVOLOG) 1 VIAL SQ SCH ×2 (11:20→17:12)
[2022-05-24] MEDS ORDERED: ALBUTEROL SO4 0.083% IH SOL 2.5 MG/3 ML VIAL.NEB. NEB PRN (15:36)
[2022-05-24] MEDS: DORZOLAMIDE 2% HCL OPHTHALMIC SOLUTION 10 ML BOTTLE OU SCH ×2 (17:13→21:49)
[2022-05-24] MEDS: CHLORHEXIDINE GLUCONATE 4% CLEANSER FOR DECOLONIZATION TP SCH (21:49)
[2022-05-24] MEDS: MONTELUKAST NA 10 MG TABLET NGT SCH (21:49)
[2022-05-24] MEDS: ATORVASTATIN CA 40 MG TABLET (FP) PO SCH (21:49)
[2022-05-25] MEDS: ALBUTEROL SO4 2.5/IPRATROPIUM 0.5 INH SOL 3 ML VIAL.NEB. NEB SCH ×6 (00:14→20:05)
[2022-05-25] MEDS: methylPREDNISolone NA SUCC 125 MG/2 ML VIAL IVPUSH SCH ×3 (01:00→17:11)
[2022-05-25] MEDS: PIPERACILLIN/TAZOB 3.375 GM 3.375 GM in DEXTROSE 5%-WATER - 50 ML IVPB SCH ×3 (01:00→17:13)
[2022-05-25] MEDS: DORZOLAMIDE 2% HCL OPHTHALMIC SOLUTION 10 ML BOTTLE OU SCH ×3 (05:57→22:10)
[2022-05-25] MEDS: BRIMONIDINE TARTRATE 0.15% OPHTHALMIC 5 ML BOTTLE OD SCH ×3 (05:57→22:10)
[2022-05-25] MEDS: INSULIN SLIDING SCALE (NOVOLOG) 1 VIAL SQ SCH ×3 (06:25→16:48)
[2022-05-25 08:15] LABS: HEMATOCRIT 25.7 % (35.4-49); HEMOGLOBIN 8.1 GM/dL (11.7-16.9); MCH 21.4 pg (25.7-33.7); MCHC 31.4 g/dl (32.0-35.9); MEAN CELL VOLUME 67.9 fl (80-96); MEAN PLT VOLUME 7.6 fl (7.5-11.1); PLATELET COUNT 378 10^3/uL (134-434); RBC 3.78 M/mm3 (4.00-5.60); RDW 20.1 % (11.9-15.9)
[2022-05-25] MEDS ORDERED: LACTATED RINGERS SOLUTION 1,000 ML/1,000 ML INFUS.BAG IV SCH (08:15)
[2022-05-25 08:29] LABS: BLOOD UREA NITROGEN 16.9 mg/dL (7-18); MAGNESIUM 2.3 mg/dL (1.8-2.4)
[2022-05-25 08:30] LABS: CALCIUM 8.4 mg/dL (8.5-10.1)
[2022-05-25 08:32] LABS: CREATININE 0.8 mg/dL (0.55-1.3); PHOSPHOROUS 2.8 mg/dL (2.5-4.9)
[2022-05-25] MEDS: MUPIROCIN 2% TOPICAL OINTMENT FOR DECOLONIZATION NS SCH ×2 (09:47→21:41)
[2022-05-25] MEDS: ENOXAPARIN NA (PORCINE) 40 MG/0.4 ML DISP.SYRIN SQ SCH (09:47)
[2022-05-25] MEDS: ASPIRIN 81 MG CHEWABLE TABLETS NGT SCH (09:47)
[2022-05-25] MEDS: PANTOPRAZOLE SODIUM 40 MG VIAL IVPUSH SCH (09:47)
[2022-05-25 15:11] VITALS: BMI 19.0
[2022-05-25] MEDS: CHLORHEXIDINE GLUCONATE 4% CLEANSER FOR DECOLONIZATION TP SCH (21:42)
[2022-05-25] MEDS: MONTELUKAST NA 10 MG TABLET NGT SCH (21:46)
[2022-05-25] MEDS: ATORVASTATIN CA 40 MG TABLET (FP) PO SCH (21:46)
[2022-05-26] MEDS: ALBUTEROL SO4 2.5/IPRATROPIUM 0.5 INH SOL 3 ML VIAL.NEB. NEB SCH ×7 (00:05→23:00)
[2022-05-26] MEDS: PIPERACILLIN/TAZOB 3.375 GM 3.375 GM in DEXTROSE 5%-WATER - 50 ML IVPB SCH ×3 (01:08→17:21)
[2022-05-26] MEDS: methylPREDNISolone NA SUCC 125 MG/2 ML VIAL IVPUSH SCH ×2 (01:08→09:20)
[2022-05-26] MEDS: INSULIN SLIDING SCALE (NOVOLOG) 1 VIAL SQ SCH ×3 (05:59→16:37)
[2022-05-26] MEDS: DORZOLAMIDE 2% HCL OPHTHALMIC SOLUTION 10 ML BOTTLE OU SCH ×3 (05:59→22:05)
[2022-05-26] MEDS: BRIMONIDINE TARTRATE 0.15% OPHTHALMIC 5 ML BOTTLE OD SCH ×3 (05:59→22:04)
[2022-05-26 07:24] LABS: HEMATOCRIT 27.4 % (35.4-49); HEMOGLOBIN 8.3 GM/dL (11.7-16.9); MCH 20.5 pg (25.7-33.7); MCHC 30.3 g/dl (32.0-35.9); MEAN CELL VOLUME 67.6 fl (80-96); MEAN PLT VOLUME 7.4 fl (7.5-11.1); PLATELET COUNT 406 10^3/uL (134-434); RBC 4.06 M/mm3 (4.00-5.60); RDW 20.2 % (11.9-15.9); WHITE BLOOD COUNT 17.1 K/mm3 (4.0-10.0)
[2022-05-26 07:44] LABS: BLOOD UREA NITROGEN 18.2 mg/dL (7-18); CALCIUM 9.1 mg/dL (8.5-10.1); MAGNESIUM 2.6 mg/dL (1.8-2.4)
[2022-05-26 07:46] LABS: PHOSPHOROUS 1.8 mg/dL (2.5-4.9)
[2022-05-26 07:48] LABS: CREATININE 0.8 mg/dL (0.55-1.3)
[2022-05-26] MEDS: ENOXAPARIN NA (PORCINE) 40 MG/0.4 ML DISP.SYRIN SQ SCH (09:19)
[2022-05-26] MEDS: ASPIRIN 81 MG CHEWABLE TABLETS NGT SCH (09:20)
[2022-05-26] MEDS: PANTOPRAZOLE SODIUM 40 MG VIAL IVPUSH SCH (09:20)
[2022-05-26] MEDS ORDERED: NAPH,MB-DB/K PH,MBDB POWDER PACKET PO ONE (10:26)
[2022-05-26] MEDS: MUPIROCIN 2% TOPICAL OINTMENT FOR DECOLONIZATION NS SCH ×2 (10:27→22:04)
[2022-05-26] MEDS: methylPREDNISolone NA SUCC 40 MG/1 ML VIAL IVPUSH SCH ×2 (11:00→22:07)
[2022-05-26] MEDS: MONTELUKAST NA 10 MG TABLET NGT SCH (22:04)
[2022-05-26] MEDS: CHLORHEXIDINE GLUCONATE 4% CLEANSER FOR DECOLONIZATION TP SCH (22:04)
[2022-05-26] MEDS: ATORVASTATIN CA 40 MG TABLET (FP) PO SCH (22:04)
[2022-05-27] MEDS: ALBUTEROL SO4 2.5/IPRATROPIUM 0.5 INH SOL 3 ML VIAL.NEB. NEB SCH ×6 (03:17→23:53)
[2022-05-27] MEDS: PIPERACILLIN/TAZOB 3.375 GM 3.375 GM in DEXTROSE 5%-WATER - 50 ML IVPB SCH ×3 (03:29→17:05)
[2022-05-27] MEDS: DORZOLAMIDE 2% HCL OPHTHALMIC SOLUTION 10 ML BOTTLE OU SCH ×3 (05:10→21:50)
[2022-05-27] MEDS: BRIMONIDINE TARTRATE 0.15% OPHTHALMIC 5 ML BOTTLE OD SCH ×3 (05:10→21:50)
[2022-05-27] MEDS: INSULIN SLIDING SCALE (NOVOLOG) 1 VIAL SQ SCH ×3 (06:53→17:01)
[2022-05-27 07:34] LABS: HEMATOCRIT 27.3 % (35.4-49); HEMOGLOBIN 8.2 GM/dL (11.7-16.9); MCH 20.2 pg (25.7-33.7); MCHC 30.1 g/dl (32.0-35.9); MEAN CELL VOLUME 67.1 fl (80-96); MEAN PLT VOLUME 7.8 fl (7.5-11.1); PLATELET COUNT 332 10^3/uL (134-434); RBC 4.07 M/mm3 (4.00-5.60); RDW 19.9 % (11.9-15.9); WHITE BLOOD COUNT 11.4 K/mm3 (4.0-10.0)
[2022-05-27 07:59] LABS: CALCIUM 8.5 mg/dL (8.5-10.1)
[2022-05-27 08:01] LABS: BLOOD UREA NITROGEN 15.4 mg/dL (7-18); MAGNESIUM 2.6 mg/dL (1.8-2.4)
[2022-05-27 08:04] LABS: CREATININE 0.8 mg/dL (0.55-1.3); PHOSPHOROUS 2.8 mg/dL (2.5-4.9)
[2022-05-27] MEDS: PANTOPRAZOLE SODIUM 40 MG VIAL IVPUSH SCH (09:25)
[2022-05-27] MEDS: ASPIRIN 81 MG CHEWABLE TABLETS NGT SCH (09:25)
[2022-05-27] MEDS: ENOXAPARIN NA (PORCINE) 40 MG/0.4 ML DISP.SYRIN SQ SCH (09:25)
[2022-05-27] MEDS: MUPIROCIN 2% TOPICAL OINTMENT FOR DECOLONIZATION NS SCH ×2 (09:25→21:50)
[2022-05-27] MEDS: methylPREDNISolone NA SUCC 40 MG/1 ML VIAL IVPUSH SCH (11:56)
[2022-05-27] MEDS: MONTELUKAST NA 10 MG TABLET NGT SCH (21:50)
[2022-05-27] MEDS: CHLORHEXIDINE GLUCONATE 4% CLEANSER FOR DECOLONIZATION TP SCH (21:50)
[2022-05-27] MEDS: ATORVASTATIN CA 40 MG TABLET (FP) PO SCH (21:50)
[2022-05-28] MEDS: methylPREDNISolone NA SUCC 40 MG/1 ML VIAL IVPUSH SCH ×3 (00:07→23:22)
[2022-05-28] MEDS: PIPERACILLIN/TAZOB 3.375 GM 3.375 GM in DEXTROSE 5%-WATER - 50 ML IVPB SCH ×3 (01:14→17:48)
[2022-05-28] MEDS: ALBUTEROL SO4 2.5/IPRATROPIUM 0.5 INH SOL 3 ML VIAL.NEB. NEB SCH ×5 (04:40→20:40)
[2022-05-28 06:57] LABS: HEMATOCRIT 29.5 % (35.4-49); MCH 20.8 pg (25.7-33.7); MCHC 30.6 g/dl (32.0-35.9); MEAN CELL VOLUME 68.1 fl (80-96); MEAN PLT VOLUME 7.8 fl (7.5-11.1); PLATELET COUNT 332 10^3/uL (134-434); RBC 4.33 M/mm3 (4.00-5.60); RDW 20.5 % (11.9-15.9); WHITE BLOOD COUNT 11.3 K/mm3 (4.0-10.0)
[2022-05-28] MEDS: DORZOLAMIDE 2% HCL OPHTHALMIC SOLUTION 10 ML BOTTLE OU SCH ×3 (07:04→22:30)
[2022-05-28] MEDS: BRIMONIDINE TARTRATE 0.15% OPHTHALMIC 5 ML BOTTLE OD SCH ×3 (07:04→22:42)
[2022-05-28] MEDS: INSULIN SLIDING SCALE (NOVOLOG) 1 VIAL SQ SCH ×3 (07:04→17:48)
[2022-05-28 07:15] LABS: CALCIUM 8.9 mg/dL (8.5-10.1)
[2022-05-28 07:16] LABS: BLOOD UREA NITROGEN 14.7 mg/dL (7-18); MAGNESIUM 2.7 mg/dL (1.8-2.4)
[2022-05-28 07:19] LABS: CREATININE 0.7 mg/dL (0.55-1.3)
[2022-05-28] MEDS: ENOXAPARIN NA (PORCINE) 40 MG/0.4 ML DISP.SYRIN SQ SCH (10:20)
[2022-05-28] MEDS: ASPIRIN 81 MG CHEWABLE TABLETS NGT SCH (10:20)
[2022-05-28] MEDS: PANTOPRAZOLE SODIUM 40 MG VIAL IVPUSH SCH (10:21)
[2022-05-28] MEDS: MUPIROCIN 2% TOPICAL OINTMENT FOR DECOLONIZATION NS SCH ×2 (10:21→23:40)
[2022-05-28] MEDS: AMOX TR/POT CLAV 875MG/125MG TABLETS (FP) PO SCH ×2 (11:33→22:32)
[2022-05-28] MEDS: AZITHROMYCIN 250 MG TABLET PO SCH (13:35)
[2022-05-28] MEDS: MONTELUKAST NA 10 MG TABLET NGT SCH (22:32)
[2022-05-28] MEDS: ATORVASTATIN CA 40 MG TABLET (FP) PO SCH (22:36)
[2022-05-28] MEDS: CHLORHEXIDINE GLUCONATE 4% CLEANSER FOR DECOLONIZATION TP SCH (23:40)
[2022-05-29] MEDS: PIPERACILLIN/TAZOB 3.375 GM 3.375 GM in DEXTROSE 5%-WATER - 50 ML IVPB SCH ×2 (02:12→09:38)
[2022-05-29] MEDS: BRIMONIDINE TARTRATE 0.15% OPHTHALMIC 5 ML BOTTLE OD SCH ×3 (05:21→22:20)
[2022-05-29] MEDS: DORZOLAMIDE 2% HCL OPHTHALMIC SOLUTION 10 ML BOTTLE OU SCH ×3 (05:21→22:22)
[2022-05-29] MEDS: INSULIN SLIDING SCALE (NOVOLOG) 1 VIAL SQ SCH ×3 (06:07→17:46)
[2022-05-29] MEDS: ALBUTEROL SO4 2.5/IPRATROPIUM 0.5 INH SOL 3 ML VIAL.NEB. NEB SCH ×3 (08:54→12:09)
[2022-05-29] MEDS: PANTOPRAZOLE SODIUM 40 MG VIAL IVPUSH SCH (09:37)
[2022-05-29] MEDS: ASPIRIN 81 MG CHEWABLE TABLETS NGT SCH (09:38)
[2022-05-29] MEDS: ENOXAPARIN NA (PORCINE) 40 MG/0.4 ML DISP.SYRIN SQ SCH (09:38)
[2022-05-29] MEDS: AMOX TR/POT CLAV 875MG/125MG TABLETS (FP) PO SCH ×2 (09:38→22:21)
[2022-05-29] MEDS: AZITHROMYCIN 250 MG TABLET PO SCH (09:38)
[2022-05-29] MEDS: methylPREDNISolone NA SUCC 40 MG/1 ML VIAL IVPUSH SCH ×2 (12:33→22:26)
[2022-05-29] MEDS: METOPROLOL TARTRATE 25 MG TABLET (FP) PO SCH ×2 (14:23→22:22)
[2022-05-29] MEDS: guaiFENesin/D-METHORPHAN HB 10 ML UNIT-DOSE CUPS PO SCH (22:20)
[2022-05-29] MEDS: ATORVASTATIN CA 40 MG TABLET (FP) PO SCH (22:21)
[2022-05-29] MEDS: MONTELUKAST NA 10 MG TABLET NGT SCH (22:22)
[2022-05-30] MEDS: DORZOLAMIDE 2% HCL OPHTHALMIC SOLUTION 10 ML BOTTLE OU SCH ×3 (05:23→22:04)
[2022-05-30] MEDS: BRIMONIDINE TARTRATE 0.15% OPHTHALMIC 5 ML BOTTLE OD SCH ×3 (05:23→22:06)
[2022-05-30] MEDS: guaiFENesin/D-METHORPHAN HB 10 ML UNIT-DOSE CUPS PO SCH ×3 (05:55→21:35)
[2022-05-30] MEDS: INSULIN SLIDING SCALE (NOVOLOG) 1 VIAL SQ SCH ×3 (06:04→18:28)
[2022-05-30 08:35] LABS: BASO % 0.6 % (0-2.0); HEMATOCRIT 30.3 % (35.4-49); HEMOGLOBIN 9.4 GM/dL (11.7-16.9); LYMPH % 3.6 % (8-40); MEAN CELL VOLUME 67.7 fl (80-96); MEAN PLT VOLUME 7.9 fl (7.5-11.1); MONO % 5.4 % (3.8-10.2); NEUT % 90.4 % (42.8-82.8); PLATELET COUNT 414 10^3/uL (134-434); RBC 4.47 M/mm3 (4.00-5.60); RDW 20.1 % (11.9-15.9); WHITE BLOOD COUNT 14.8 K/mm3 (4.0-10.0)
[2022-05-30 09:00] LABS: CALCIUM 8.7 mg/dL (8.5-10.1)
[2022-05-30 09:01] LABS: BLOOD UREA NITROGEN 19.9 mg/dL (7-18)
[2022-05-30 09:04] LABS: CREATININE 0.7 mg/dL (0.55-1.3)
[2022-05-30] MEDS: ASPIRIN 81 MG CHEWABLE TABLETS NGT SCH (10:01)
[2022-05-30] MEDS: ENOXAPARIN NA (PORCINE) 40 MG/0.4 ML DISP.SYRIN SQ SCH (10:01)
[2022-05-30] MEDS: AMOX TR/POT CLAV 875MG/125MG TABLETS (FP) PO SCH ×2 (10:01→23:00)
[2022-05-30] MEDS: AZITHROMYCIN 250 MG TABLET PO SCH (10:01)
[2022-05-30] MEDS: PANTOPRAZOLE SODIUM 40 MG VIAL IVPUSH SCH (10:01)
[2022-05-30] MEDS: METOPROLOL TARTRATE 25 MG TABLET (FP) PO SCH ×2 (10:01→23:00)
[2022-05-30 11:30] LABS: ANISOCYTOSIS 3+; MACROCYTOSIS 0; OVALOCYTE 2+
[2022-05-30] MEDS ORDERED: ACETAMINOPHEN 325 MG TABLET (FP) PO SCH (12:45)
[2022-05-30] MEDS: ACETAMINOPHEN 325 MG TABLET (FP) PO SCH ×2 (12:48→23:00)
[2022-05-30] MEDS: methylPREDNISolone NA SUCC 40 MG/1 ML VIAL IVPUSH SCH ×2 (13:08→18:28)
[2022-05-30] MEDS ORDERED: methylPREDNISolone NA SUCC 40 MG/1 ML VIAL IVPUSH SCH (14:30)
[2022-05-30 18:30] LABS: ARTERIAL BLD GAS O2 SATURATION 93.4 % (95-98); ARTERIAL BLOOD GAS PO2 68.6 mmHg (80-100); ARTERIAL BLOOD GAS pH 7.396 (7.350-7.450)
[2022-05-30 18:31] LABS: ALLENS TEST POSITIVE
[2022-05-30] MEDS: ATORVASTATIN CA 40 MG TABLET (FP) PO SCH (22:01)
[2022-05-30] MEDS: MONTELUKAST NA 10 MG TABLET NGT SCH (22:02)
[2022-05-31] MEDS: methylPREDNISolone NA SUCC 40 MG/1 ML VIAL IVPUSH SCH ×3 (02:32→17:31)
[2022-05-31] MEDS: guaiFENesin/D-METHORPHAN HB 10 ML UNIT-DOSE CUPS PO SCH ×3 (05:35→22:09)
[2022-05-31] MEDS: ACETAMINOPHEN 325 MG TABLET (FP) PO SCH ×3 (06:33→22:09)
[2022-05-31] MEDS: INSULIN SLIDING SCALE (NOVOLOG) 1 VIAL SQ SCH ×3 (06:37→17:29)
[2022-05-31] MEDS: BRIMONIDINE TARTRATE 0.15% OPHTHALMIC 5 ML BOTTLE OD SCH ×3 (06:37→22:14)
[2022-05-31] MEDS: DORZOLAMIDE 2% HCL OPHTHALMIC SOLUTION 10 ML BOTTLE OU SCH ×3 (06:37→22:14)
[2022-05-31 08:35] LABS: BLOOD UREA NITROGEN 21.5 mg/dL (7-18); HEMOGLOBIN 10.1 GM/dL (11.7-16.9); MCH 20.7 pg (25.7-33.7); MCHC 30.6 g/dl (32.0-35.9); MEAN CELL VOLUME 67.5 fl (80-96); MEAN PLT VOLUME 7.6 fl (7.5-11.1); PLATELET COUNT 427 10^3/uL (134-434); RBC 4.89 M/mm3 (4.00-5.60); RDW 19.7 % (11.9-15.9); WHITE BLOOD COUNT 12.3 K/mm3 (4.0-10.0)
[2022-05-31 08:39] LABS: CREATININE 0.7 mg/dL (0.55-1.3)
[2022-05-31 09:23] LABS: ANISOCYTOSIS 3+; MACROCYTOSIS 0
[2022-05-31] MEDS: PANTOPRAZOLE SODIUM 40 MG VIAL IVPUSH SCH (10:23)
[2022-05-31] MEDS: ASPIRIN 81 MG CHEWABLE TABLETS NGT SCH (10:23)
[2022-05-31] MEDS: ENOXAPARIN NA (PORCINE) 40 MG/0.4 ML DISP.SYRIN SQ SCH (10:23)
[2022-05-31] MEDS: AMOX TR/POT CLAV 875MG/125MG TABLETS (FP) PO SCH ×2 (10:24→22:09)
[2022-05-31] MEDS: METOPROLOL TARTRATE 25 MG TABLET (FP) PO SCH ×2 (10:24→22:08)
[2022-05-31] MEDS: AZITHROMYCIN 250 MG TABLET PO SCH (10:24)
[2022-05-31] MEDS ORDERED: FUROSEMIDE 40 MG/4 ML INJECTABLE VIAL IVPUSH ONE (11:00)
[2022-05-31] MEDS: ALBUTEROL SO4 2.5/IPRATROPIUM 0.5 INH SOL 3 ML VIAL.NEB. NEB SCH ×2 (15:00→19:38)
[2022-05-31] MEDS: SODIUM CHLORIDE 0.45% 1,000 ML IV SCH (18:58)
[2022-05-31] MEDS: MONTELUKAST NA 10 MG TABLET NGT SCH (22:08)
[2022-05-31] MEDS: ATORVASTATIN CA 40 MG TABLET (FP) PO SCH (22:09)
[2022-06-01] MEDS: ALBUTEROL SO4 2.5/IPRATROPIUM 0.5 INH SOL 3 ML VIAL.NEB. NEB SCH ×6 (00:27→20:51)
[2022-06-01] MEDS: methylPREDNISolone NA SUCC 40 MG/1 ML VIAL IVPUSH SCH ×3 (02:35→17:25)
[2022-06-01] MEDS: guaiFENesin/D-METHORPHAN HB 10 ML UNIT-DOSE CUPS PO SCH ×3 (06:56→21:31)
[2022-06-01] MEDS: ACETAMINOPHEN 325 MG TABLET (FP) PO SCH ×3 (06:56→21:32)
[2022-06-01] MEDS: BRIMONIDINE TARTRATE 0.15% OPHTHALMIC 5 ML BOTTLE OD SCH ×3 (06:57→21:35)
[2022-06-01] MEDS: DORZOLAMIDE 2% HCL OPHTHALMIC SOLUTION 10 ML BOTTLE OU SCH ×3 (06:57→21:35)
[2022-06-01] MEDS: INSULIN SLIDING SCALE (NOVOLOG) 1 VIAL SQ SCH ×3 (06:57→17:05)
[2022-06-01 08:35] LABS: HEMATOCRIT 31.2 % (35.4-49); HEMOGLOBIN 9.4 GM/dL (11.7-16.9); MCH 20.4 pg (25.7-33.7); MCHC 30.3 g/dl (32.0-35.9); MEAN CELL VOLUME 67.4 fl (80-96); RBC 4.63 M/mm3 (4.00-5.60); RDW 19.9 % (11.9-15.9); WHITE BLOOD COUNT 15.8 K/mm3 (4.0-10.0)
[2022-06-01 08:36] LABS: MEAN PLT VOLUME 8.3 fl (7.5-11.1); PLATELET COUNT 405 10^3/uL (134-434)
[2022-06-01 08:40] LABS: CALCIUM 8.5 mg/dL (8.5-10.1)
[2022-06-01 08:41] LABS: BLOOD UREA NITROGEN 20.8 mg/dL (7-18)
[2022-06-01 08:44] LABS: CREATININE 0.7 mg/dL (0.55-1.3)
[2022-06-01] MEDS: AMOX TR/POT CLAV 875MG/125MG TABLETS (FP) PO SCH ×2 (09:29→21:31)
[2022-06-01] MEDS: ASPIRIN 81 MG CHEWABLE TABLETS NGT SCH (09:29)
[2022-06-01] MEDS: AZITHROMYCIN 250 MG TABLET PO SCH (09:29)
[2022-06-01] MEDS: METOPROLOL TARTRATE 25 MG TABLET (FP) PO SCH ×2 (09:29→21:31)
[2022-06-01] MEDS: PANTOPRAZOLE SODIUM 40 MG VIAL IVPUSH SCH (09:29)
[2022-06-01] MEDS: ENOXAPARIN NA (PORCINE) 40 MG/0.4 ML DISP.SYRIN SQ SCH ×2 (09:30→14:36)
[2022-06-01 09:36] LABS: ANISOCYTOSIS 3+; MACROCYTOSIS 0; TEAR DROP CELLS 2+
[2022-06-01] MEDS: SODIUM CHLORIDE 0.45% 1,000 ML IV SCH (17:24)
[2022-06-01] MEDS: ATORVASTATIN CA 40 MG TABLET (FP) PO SCH (21:31)
[2022-06-01] MEDS: MONTELUKAST NA 10 MG TABLET NGT SCH (21:32)
[2022-06-02] MEDS: methylPREDNISolone NA SUCC 40 MG/1 ML VIAL IVPUSH SCH ×2 (02:38→10:30)
[2022-06-02] MEDS: ALBUTEROL SO4 2.5/IPRATROPIUM 0.5 INH SOL 3 ML VIAL.NEB. NEB SCH ×6 (04:03→20:57)
[2022-06-02] MEDS: INSULIN SLIDING SCALE (NOVOLOG) 1 VIAL SQ SCH ×3 (06:53→16:53)
[2022-06-02] MEDS: BRIMONIDINE TARTRATE 0.15% OPHTHALMIC 5 ML BOTTLE OD SCH ×3 (06:54→22:07)
[2022-06-02] MEDS: ACETAMINOPHEN 325 MG TABLET (FP) PO SCH ×3 (06:54→22:06)
[2022-06-02] MEDS: DORZOLAMIDE 2% HCL OPHTHALMIC SOLUTION 10 ML BOTTLE OU SCH ×3 (06:54→22:07)
[2022-06-02] MEDS: guaiFENesin/D-METHORPHAN HB 10 ML UNIT-DOSE CUPS PO SCH ×3 (06:54→22:02)
[2022-06-02] MEDS: ENOXAPARIN NA (PORCINE) 40 MG/0.4 ML DISP.SYRIN SQ SCH (10:30)
[2022-06-02] MEDS: AZITHROMYCIN 250 MG TABLET PO SCH (10:31)
[2022-06-02] MEDS: PANTOPRAZOLE SODIUM 40 MG VIAL IVPUSH SCH (10:31)
[2022-06-02] MEDS: AMOX TR/POT CLAV 875MG/125MG TABLETS (FP) PO SCH ×2 (10:31→16:50)
[2022-06-02] MEDS: METOPROLOL TARTRATE 25 MG TABLET (FP) PO SCH ×2 (10:31→22:06)
[2022-06-02] MEDS: ASPIRIN 81 MG CHEWABLE TABLETS NGT SCH (10:31)
[2022-06-02] MEDS: ATORVASTATIN CA 40 MG TABLET (FP) PO SCH (22:06)
[2022-06-02] MEDS: MONTELUKAST NA 10 MG TABLET NGT SCH (22:06)
[2022-06-03] MEDS: methylPREDNISolone NA SUCC 40 MG/1 ML VIAL IVPUSH SCH ×4 (00:40→17:52)
[2022-06-03] MEDS: ALBUTEROL SO4 2.5/IPRATROPIUM 0.5 INH SOL 3 ML VIAL.NEB. NEB SCH ×6 (04:00→20:50)
[2022-06-03] MEDS: INSULIN SLIDING SCALE (NOVOLOG) 1 VIAL SQ SCH ×3 (06:18→16:46)
[2022-06-03] MEDS: ACETAMINOPHEN 325 MG TABLET (FP) PO SCH ×3 (06:20→21:44)
[2022-06-03] MEDS: guaiFENesin/D-METHORPHAN HB 10 ML UNIT-DOSE CUPS PO SCH ×3 (06:25→21:44)
[2022-06-03] MEDS: DORZOLAMIDE 2% HCL OPHTHALMIC SOLUTION 10 ML BOTTLE OU SCH ×3 (06:27→21:46)
[2022-06-03] MEDS: BRIMONIDINE TARTRATE 0.15% OPHTHALMIC 5 ML BOTTLE OD SCH ×3 (06:27→21:46)
[2022-06-03 08:08] LABS: HEMATOCRIT 31.1 % (35.4-49); HEMOGLOBIN 9.3 GM/dL (11.7-16.9); MCH 20.4 pg (25.7-33.7); MEAN PLT VOLUME 8.6 fl (7.5-11.1); PLATELET COUNT 432 10^3/uL (134-434); RBC 4.57 M/mm3 (4.00-5.60); RDW 19.7 % (11.9-15.9)
[2022-06-03 08:45] LABS: BLOOD UREA NITROGEN 20.7 mg/dL (7-18)
[2022-06-03 08:47] LABS: CALCIUM 8.9 mg/dL (8.5-10.1)
[2022-06-03 08:48] LABS: CREATININE 0.7 mg/dL (0.55-1.3)
[2022-06-03 09:10] LABS: ANISOCYTOSIS 3+; MACROCYTOSIS 0; OVALOCYTE 2+; TEAR DROP CELLS 1+
[2022-06-03] MEDS: PANTOPRAZOLE SODIUM 40 MG VIAL IVPUSH SCH (09:56)
[2022-06-03] MEDS: ENOXAPARIN NA (PORCINE) 40 MG/0.4 ML DISP.SYRIN SQ SCH (09:56)
[2022-06-03] MEDS: AZITHROMYCIN 250 MG TABLET PO SCH (09:57)
[2022-06-03] MEDS: METOPROLOL TARTRATE 25 MG TABLET (FP) PO SCH ×2 (09:57→21:45)
[2022-06-03] MEDS: ASPIRIN 81 MG CHEWABLE TABLETS NGT SCH (09:57)
[2022-06-03] MEDS: ATORVASTATIN CA 40 MG TABLET (FP) PO SCH (21:44)
[2022-06-03] MEDS: MONTELUKAST NA 10 MG TABLET NGT SCH (21:46)
[2022-06-04] MEDS: ALBUTEROL SO4 2.5/IPRATROPIUM 0.5 INH SOL 3 ML VIAL.NEB. NEB SCH ×6 (00:08→20:05)
[2022-06-04] MEDS: methylPREDNISolone NA SUCC 40 MG/1 ML VIAL IVPUSH SCH ×3 (03:00→18:10)
[2022-06-04] MEDS: ACETAMINOPHEN 325 MG TABLET (FP) PO SCH ×3 (06:54→21:03)
[2022-06-04] MEDS: INSULIN SLIDING SCALE (NOVOLOG) 1 VIAL SQ SCH ×3 (06:55→16:24)
[2022-06-04] MEDS: guaiFENesin/D-METHORPHAN HB 10 ML UNIT-DOSE CUPS PO SCH ×3 (06:55→21:02)
[2022-06-04] MEDS: DORZOLAMIDE 2% HCL OPHTHALMIC SOLUTION 10 ML BOTTLE OU SCH ×3 (06:55→21:09)
[2022-06-04] MEDS: BRIMONIDINE TARTRATE 0.15% OPHTHALMIC 5 ML BOTTLE OD SCH ×3 (06:55→21:08)
[2022-06-04 07:58] LABS: BASO % 0.1 % (0-2.0); HEMATOCRIT 29.4 % (35.4-49); HEMOGLOBIN 8.7 GM/dL (11.7-16.9); MCHC 29.5 g/dl (32.0-35.9); MEAN CELL VOLUME 67.6 fl (80-96); MEAN PLT VOLUME 9.1 fl (7.5-11.1); MONO % 6.7 % (3.8-10.2); NEUT % 86.2 % (42.8-82.8); PLATELET COUNT 267 10^3/uL (134-434); RBC 4.36 M/mm3 (4.00-5.60); WHITE BLOOD COUNT 16.7 K/mm3 (4.0-10.0)
[2022-06-04 08:16] LABS: ALBUMIN 2.5 g/dl (3.4-5.0); BLOOD UREA NITROGEN 18.8 mg/dL (7-18); CALCIUM 8.8 mg/dL (8.5-10.1)
[2022-06-04 08:19] LABS: CREATININE 0.6 mg/dL (0.55-1.3)
[2022-06-04 08:21] LABS: BILIRUBIN,TOTAL 0.2 mg/dL (0.2-1); TOT PROT 4.9 g/dl (6.4-8.2)
[2022-06-04] MEDS: METOPROLOL TARTRATE 25 MG TABLET (FP) PO SCH ×2 (09:49→21:02)
[2022-06-04] MEDS: ASPIRIN 81 MG CHEWABLE TABLETS NGT SCH (09:49)
[2022-06-04] MEDS: ENOXAPARIN NA (PORCINE) 40 MG/0.4 ML DISP.SYRIN SQ SCH (09:50)
[2022-06-04] MEDS: PANTOPRAZOLE SODIUM 40 MG VIAL IVPUSH SCH (10:05)
[2022-06-04] MEDS: ATORVASTATIN CA 40 MG TABLET (FP) PO SCH (21:02)
[2022-06-04] MEDS: MONTELUKAST NA 10 MG TABLET NGT SCH (21:02)
[2022-06-05] MEDS: ALBUTEROL SO4 2.5/IPRATROPIUM 0.5 INH SOL 3 ML VIAL.NEB. NEB SCH ×6 (04:00→20:05)
[2022-06-05] MEDS: methylPREDNISolone NA SUCC 40 MG/1 ML VIAL IVPUSH SCH ×3 (06:27→17:17)
[2022-06-05] MEDS: ACETAMINOPHEN 325 MG TABLET (FP) PO SCH ×3 (06:27→21:54)
[2022-06-05] MEDS: guaiFENesin/D-METHORPHAN HB 10 ML UNIT-DOSE CUPS PO SCH ×3 (06:27→21:53)
[2022-06-05] MEDS: INSULIN SLIDING SCALE (NOVOLOG) 1 VIAL SQ SCH ×3 (06:28→16:50)
[2022-06-05] MEDS: BRIMONIDINE TARTRATE 0.15% OPHTHALMIC 5 ML BOTTLE OD SCH ×3 (06:28→21:55)
[2022-06-05] MEDS: DORZOLAMIDE 2% HCL OPHTHALMIC SOLUTION 10 ML BOTTLE OU SCH ×3 (06:28→21:55)
[2022-06-05 08:21] LABS: HEMATOCRIT 29.5 % (35.4-49); HEMOGLOBIN 9.3 GM/dL (11.7-16.9); LYMPH % 5.4 % (8-40); MCH 21.1 pg (25.7-33.7); MCHC 31.4 g/dl (32.0-35.9); MEAN CELL VOLUME 67.3 fl (80-96); MEAN PLT VOLUME 8.2 fl (7.5-11.1); MONO % 7.2 % (3.8-10.2); NEUT % 87.4 % (42.8-82.8); PLATELET COUNT 368 10^3/uL (134-434); RBC 4.39 M/mm3 (4.00-5.60); WHITE BLOOD COUNT 24.1 K/mm3 (4.0-10.0)
[2022-06-05 09:04] LABS: BLOOD UREA NITROGEN 20.6 mg/dL (7-18); CALCIUM 8.6 mg/dL (8.5-10.1)
[2022-06-05 09:07] LABS: CREATININE 0.6 mg/dL (0.55-1.3)
[2022-06-05] MEDS: METOPROLOL TARTRATE 25 MG TABLET (FP) PO SCH ×2 (09:08→21:54)
[2022-06-05] MEDS: PANTOPRAZOLE SODIUM 40 MG VIAL IVPUSH SCH (09:08)
[2022-06-05] MEDS: ASPIRIN 81 MG CHEWABLE TABLETS NGT SCH (09:08)
[2022-06-05] MEDS: ENOXAPARIN NA (PORCINE) 40 MG/0.4 ML DISP.SYRIN SQ SCH (09:09)
[2022-06-05 10:39] LABS: ANISOCYTOSIS 2+; MACROCYTOSIS 0; OVALOCYTE 2+; TARGET CELLS 1+; TEAR DROP CELLS 1+
[2022-06-05] MEDS: ATORVASTATIN CA 40 MG TABLET (FP) PO SCH (21:53)
[2022-06-05] MEDS: MONTELUKAST NA 10 MG TABLET NGT SCH (21:54)
[2022-06-06] MEDS: methylPREDNISolone NA SUCC 40 MG/1 ML VIAL IVPUSH SCH ×2 (02:20→09:35)
[2022-06-06] MEDS: ALBUTEROL SO4 2.5/IPRATROPIUM 0.5 INH SOL 3 ML VIAL.NEB. NEB SCH ×7 (04:00→23:40)
[2022-06-06] MEDS: DORZOLAMIDE 2% HCL OPHTHALMIC SOLUTION 10 ML BOTTLE OU SCH ×3 (05:55→21:45)
[2022-06-06] MEDS: guaiFENesin/D-METHORPHAN HB 10 ML UNIT-DOSE CUPS PO SCH ×3 (05:55→21:39)
[2022-06-06] MEDS: BRIMONIDINE TARTRATE 0.15% OPHTHALMIC 5 ML BOTTLE OD SCH ×3 (05:55→21:44)
[2022-06-06] MEDS: ACETAMINOPHEN 325 MG TABLET (FP) PO SCH ×3 (05:56→21:45)
[2022-06-06] MEDS: INSULIN SLIDING SCALE (NOVOLOG) 1 VIAL SQ SCH ×3 (06:42→17:31)
[2022-06-06] MEDS: ENOXAPARIN NA (PORCINE) 40 MG/0.4 ML DISP.SYRIN SQ SCH (09:35)
[2022-06-06] MEDS: ASPIRIN 81 MG CHEWABLE TABLETS NGT SCH (09:35)
[2022-06-06] MEDS: PANTOPRAZOLE SODIUM 40 MG VIAL IVPUSH SCH (09:35)
[2022-06-06] MEDS ORDERED: metoPROLOL SUCCINATE 25 MG TAB.SR.24H (FP) PO SCH (10:00)
[2022-06-06] MEDS ORDERED: FUROSEMIDE 40 MG/4 ML INJECTABLE VIAL IVPUSH ONE (13:45)
[2022-06-06] MEDS: LACTOBACILLUS ACIDOPHILUS 1 TABLET PO SCH ×2 (14:48→21:45)
[2022-06-06] MEDS ORDERED: AMOX TR/POT CLAV 875MG/125MG TABLETS (FP) PO SCH (17:30)
[2022-06-06] MEDS: AMOX TR/POT CLAV 875MG/125MG TABLETS (FP) PO SCH (17:34)
[2022-06-06] MEDS: ATORVASTATIN CA 40 MG TABLET (FP) PO SCH (21:45)
[2022-06-06] MEDS: MONTELUKAST NA 10 MG TABLET NGT SCH (21:45)
[2022-06-07] MEDS: ALBUTEROL SO4 2.5/IPRATROPIUM 0.5 INH SOL 3 ML VIAL.NEB. NEB SCH ×3 (04:10→13:14)
[2022-06-07] MEDS: guaiFENesin/D-METHORPHAN HB 10 ML UNIT-DOSE CUPS PO SCH (05:44)
[2022-06-07] MEDS ORDERED: FUROSEMIDE 40 MG/4 ML INJECTABLE VIAL IVPUSH ONE (06:00)
[2022-06-07] MEDS: DORZOLAMIDE 2% HCL OPHTHALMIC SOLUTION 10 ML BOTTLE OU SCH (06:43)
[2022-06-07] MEDS: ACETAMINOPHEN 325 MG TABLET (FP) PO SCH (06:43)
[2022-06-07] MEDS: BRIMONIDINE TARTRATE 0.15% OPHTHALMIC 5 ML BOTTLE OD SCH (06:44)
[2022-06-07] MEDS: INSULIN SLIDING SCALE (NOVOLOG) 1 VIAL SQ SCH ×2 (06:46→11:43)
[2022-06-07] MEDS: AMOX TR/POT CLAV 875MG/125MG TABLETS (FP) PO SCH (08:21)
[2022-06-07 08:45] LABS: CALCIUM 8.6 mg/dL (8.5-10.1)
[2022-06-07 08:46] LABS: BLOOD UREA NITROGEN 19.9 mg/dL (7-18)
[2022-06-07 08:49] LABS: CREATININE 0.6 mg/dL (0.55-1.3)
[2022-06-07 09:02] LABS: HEMATOCRIT 30.9 % (35.4-49); MCH 19.9 pg (25.7-33.7); MCHC 29.2 g/dl (32.0-35.9); MEAN CELL VOLUME 68.2 fl (80-96); MEAN PLT VOLUME 8.5 fl (7.5-11.1); PLATELET COUNT 352 10^3/uL (134-434); RBC 4.54 M/mm3 (4.00-5.60); RDW 20.2 % (11.9-15.9); WHITE BLOOD COUNT 29.4 K/mm3 (4.0-10.0)
[2022-06-07 09:44] LABS: ANISOCYTOSIS 3+; MACROCYTOSIS 0; OVALOCYTE 2+
[2022-06-07] MEDS ORDERED: methylPREDNISolone NA SUCC 40 MG/1 ML VIAL IVPUSH SCH (10:00)
[2022-06-07] MEDS ORDERED: metoPROLOL SUCCINATE 25 MG TAB.SR.24H (FP) PO SCH ×2 (10:00)
[2022-06-07] MEDS: PANTOPRAZOLE SODIUM 40 MG VIAL IVPUSH SCH (10:21)
[2022-06-07] MEDS: LACTOBACILLUS ACIDOPHILUS 1 TABLET PO SCH (10:21)
[2022-06-07] MEDS: ENOXAPARIN NA (PORCINE) 40 MG/0.4 ML DISP.SYRIN SQ SCH (10:21)
[2022-06-07] MEDS: ASPIRIN 81 MG CHEWABLE TABLETS NGT SCH (10:22)
[2022-06-07 14:48] VITALS: BP 111/61; PULSE 88; RESP 18; TEMP 98.2
[2022-06-07] MEDS ORDERED: DOXYCYCLINE MONOHYDRATE 25 MG/5 ML SUSPENSION PO SCH (18:00)
== END 2022-06-07 15:03 | DRG 208 ==
LOC: JER 13:27 → JERBED 14:40 → JICU 05-24 04:00 → J4W 05-28 19:12
PROVIDERS: ADMIT Internal Medicine; ATTEND Internal Medicine
PROC: 5A1935Z Respiratory Ventilation, Less than 24 Consecutive Hours (ICD-10-PCS; principal; 2022-05-24)
PROC: 0BH17EZ Insertion of Endotracheal Airway into Trachea, Via Natural or Artificial Opening (ICD-10-PCS; 2022-05-24)
PROC: 5A12012 Performance of Cardiac Output, Single, Manual (ICD-10-PCS; 2022-05-24)
DX: J96.01 Acute respiratory failure with hypoxia (principal); J69.0 Pneumonitis due to inhalation of food and vomit; I46.9 Cardiac arrest, cause unspecified; J44.1 Chronic obstructive pulmonary disease with (acute) exacerbation; G93.1 Anoxic brain damage, not elsewhere classified; I50.32 Chronic diastolic (congestive) heart failure; E87.20 Acidosis, unspecified; I24.8 Other forms of acute ischemic heart disease; I47.20 Ventricular tachycardia, unspecified; R78.81 Bacteremia; R64 Cachexia; Z68.1 Body mass index [BMI] 19.9 or less, adult; J44.9 Chronic obstructive pulmonary disease, unspecified; T68.XXXA Hypothermia, initial encounter; D72.829 Elevated white blood cell count, unspecified; E78.5 Hyperlipidemia, unspecified; I25.10 Atherosclerotic heart disease of native coronary artery without angina pectoris; R63.0 Anorexia; R62.7 Adult failure to thrive
CPT/HCPCS: 0241U-QW; 36415; 36600; 71045-TC-FY; 74230-TC-FY; 80048; 80053; 80061; 81003; 82803; 82962; 83036; 83605; 83735; 83880; 84100; 84443; 84484; 85025; 85027; 85610; 85730; 87040; 87086; 87899; 92611-GN; 93005; 93010; 93306-TC; 94640; 97116-GP; 97162-GP; 99285-25; C9803-CS; U0003; U0005